=== PATIENT | female | born 1940 | race Caucasian/White ===

== ENCOUNTER 2021-07-10 11:23 | Day surgery (SDC) | payer MEDICARE, OTHER ==
[~2021-07-10 11:23] MED LIST: Cefuroxime 10 MG/ML SYRINGE EYELF SCH; Lidocaine 1% PF 2 ML SDV INJECT SCH; Pilocarpine 4% Ophth Soln 15 ML Bot EYELF SCH
[2021-07-10] MEDS: Polymyxin B/Trimethoprim 10 ML Bottle EYELF SCH ×3 (11:35→13:08)
[2021-07-10] MEDS: Brimonidine 0.2% Ophth Soln 5 ML Bottle EYELF SCH ×3 (11:40→13:08)
[2021-07-10] MEDS: Phenylephrine 2.5% Ophth Soln 2 ML Bot EYELF SCH ×5 (11:50→12:50)
[2021-07-10] MEDS: Tropicamide 1% Ophth Soln 15 ML Bottle EYELF SCH ×4 (11:55→12:35)
[2021-07-10] MEDS: Tetracaine HCl/PF 0.5% 4 ML Bottle EYEBOTH SCH ×3 (12:40→12:58)
--- NOTE | 2021-07-10 12:50 | PCM.PREANE ---
Preanesthetic Assessment - Anesthesia/Transfusion/Family Hx Anesthesia History: Prior Anesthesia Without Reaction Family History of Anesthesia Reaction: No Transfusion History: Prior Transfusion Without Reaction - Review of Systems General: No Symptoms, Other (history of breast ca and lymphoma, last chemo tx was 5 years ago) Pulmonary: No Symptoms Cardiovascular: Other (HTN, no meds) Gastrointestinal: No Symptoms Neurological: No Symptoms Other: Reports: Thyroid Problems (on replacement) - Physical Assessment NPO Status Date: 07/09/21 NPO Status Time: 20:00 Weight: 86.183 kg Mental Status: Alert & Oriented x3 Airway Class: Mallampati = 2 Dentition: Reports: Dentures (upper and lower) Thyro-Mental Finger Breadths: 3 Mouth Opening Finger Breadths: 3 ROM/Head Extension: Full Lungs: Clear to Auscultation, Normal Respiratory Effort Cardiovascular: Regular Rate, Regular Rhythm - Allergies Allergies/Adverse Reactions: Allergies Allergy/AdvReac Type Severity Reaction Status Date / Time morphine Allergy Other Verified 07/09/21 13:36 - Blood Blood Available: No Product(s) Available: None - Acknowledgements Anesthesia Type Planned: MAC Pt an Appropriate Candidate for the Planned Anesthesia: Yes Alternatives and Risks of Anesthesia Discussed w Pt/Guardian: Yes Pt/Guardian Understands and Agrees with Anesthesia Plan: Yes PreAnesthesia Questionnaire - HOME MEDS Home Medications: Home Meds Levothyroxine 25 mcg PO DAILY 07/09/21 [History] - CURRENT (IN HOUSE) MEDS Current Meds: Current Medications Brimonidine Tartrate (Brimonidine 0.2% Ophth Soln 5 Ml Bottle) 0 ml EYELF ASDIRECTED SHAN Stop: 07/10/21 18:00 Last Admin: 07/10/21 12:23 Dose: 1 drop Documented by: Cefuroxime Sodium (Cefuroxime 10 Mg/Ml Syringe) 0 mg EYELF ASDIRECTED SHAN Stop: 07/10/21 18:00 Lidocaine HCl (Lidocaine 1% Pf 2 Ml Sdv) 0 ml INJECT ASDIRECTED SHAN Stop: 07/10/21 18:00 Phenylephrine HCl (Phenylephrine 2.5% Ophth Soln 2 Ml Bot) 0 ml EYELF ASDIRECTED SHAN Stop: 07/10/21 18:00 Last Admin: 07/10/21 12:31 Dose: 1 drop Documented by: Pilocarpine HCl (Pilocarpine 4% Ophth Soln 15 Ml Bot) 0 ml EYELF ASDIRECTED SHAN Stop: 07/10/21 18:00 Polymyxin/Trimethoprim Sulfate (Polymyxin B/Trimethoprim 10 Ml Bottle) 0 ml EYELF ASDIRECTED SHAN Stop: 07/10/21 18:00 Last Admin: 07/10/21 12:16 Dose: 1 drop Documented by: Tetracaine HCl (Tetracaine Hcl/Pf 0.5% 4 Ml Bottle) 0 ml EYEBOTH ASDIRECTED SHAN Stop: 07/10/21 18:00 Last Admin: 07/10/21 12:40 Dose: 1 drop Documented by: Tropicamide (Tropicamide 1% Ophth Soln 15 Ml Bottle) 0 ml EYELF ASDIRECTED SHAN Stop: 07/10/21 18:00 Last Admin: 07/10/21 12:35 Dose: 1 drop Documented by:
--- NOTE | 2021-07-10 13:11 | PCM48HPAN ---
Post Anesthesia Note - EVALUATION WITHIN 48HRS OF ANESTHETIC Vital Signs in Normal Range: Yes Patient Participated in Evaluation: Yes Respiratory Function Stable: Yes Airway Patent: Yes Cardiovascular Function Stable: Yes Hydration Status Stable: Yes Pain Control Satisfactory: Yes Nausea and Vomiting Control Satisfactory: Yes Mental Status Recovered: Yes Vital Signs: 1133/77 95% 61 15
== END 2021-07-10 13:20 | disposition home or self-care (01) ==
LOC: JD.SDS 11:23
PROVIDERS: ATTEND Ophthalmology
DX: H25.813 Combined forms of age-related cataract, bilateral (principal); H16.103 Unspecified superficial keratitis, bilateral; H16.223 Keratoconjunctivitis sicca, not specified as Sjogren's, bilateral; H02.834 Dermatochalasis of left upper eyelid; H02.831 Dermatochalasis of right upper eyelid; I10 Essential (primary) hypertension; E03.9 Hypothyroidism, unspecified; Z85.3 Personal history of malignant neoplasm of breast; Z87.891 Personal history of nicotine dependence
CPT/HCPCS: 66984; J0697; C1780

== ENCOUNTER 2021-08-05 09:58 | Day surgery (SDC) | payer MEDICARE, OTHER ==
[~2021-08-05 09:58] MED LIST changes: -Cefuroxime 10 MG/ML SYRINGE EYELF SCH; +Cefuroxime 10 MG/ML SYRINGE EYERT SCH; -Pilocarpine 4% Ophth Soln 15 ML Bot EYELF SCH; +Pilocarpine 4% Ophth Soln 15 ML Bot EYERT SCH
--- NOTE | 2021-08-05 11:08 | PCM.PREANE ---
Preanesthetic Assessment - Procedure Proposed Procedure: cataract extraction with iol right eye - Anesthesia/Transfusion/Family Hx Anesthesia History: Prior Anesthesia Without Reaction Family History of Anesthesia Reaction: No Transfusion History: Prior Transfusion Without Reaction - Review of Systems General: No Symptoms Pulmonary: No Symptoms, Cough (had a cold lately) Cardiovascular: No Symptoms Gastrointestinal: No Symptoms Neurological: No Symptoms Other: Reports: Thyroid Problems - Physical Assessment NPO Status Date: 08/04/21 NPO Status Time: 21:00 Vital Signs: Last Vital Signs Temp 98.1 F 08/05/21 10:30 Pulse 59 L 08/05/21 10:30 Resp 16 08/05/21 10:30 BP 129/74 08/05/21 10:30 Pulse Ox 97 08/05/21 10:30 Height: 5 ft 5 in Weight: 86.183 kg ASA Class: 2 Mental Status: Alert & Oriented x3 Airway Class: Mallampati = 3 Dentition: Reports: Dentures (top and bottom) Thyro-Mental Finger Breadths: 3 Mouth Opening Finger Breadths: 3 ROM/Head Extension: Full Lungs: Clear to Auscultation, Normal Respiratory Effort Cardiovascular: Regular Rate, Regular Rhythm - Allergies Allergies/Adverse Reactions: Allergies Allergy/AdvReac Type Severity Reaction Status Date / Time morphine Allergy Other Verified 08/05/21 10:54 - Blood Blood Available: No - Acknowledgements Anesthesia Type Planned: MAC Pt an Appropriate Candidate for the Planned Anesthesia: Yes Alternatives and Risks of Anesthesia Discussed w Pt/Guardian: Yes Pt/Guardian Understands and Agrees with Anesthesia Plan: Yes PreAnesthesia Questionnaire Cardiovascular History: Reports: Hypertension Respiratory History: Reports: Other (See Below) (cold lately) Endocrine/Metabolic History: Reports: Hypoparathyroidism, Obesity/BMI 30+ Oncologic (Cancer) History: Reports: Breast, Other (See Below) (lymphoma) - Past Surgical History Female Surgical History: Reports: Mastectomy (double) Musculoskeletal Surgical History: Reports: Knee Replacement (bilateral), Shoulder Surgery - SUBSTANCE USE Tobacco Use Status *Q: Former Tobacco User Second Hand Smoke Exposure: No Recreational Drug Use History: No - HOME MEDS Home Medications: Home Meds Levothyroxine 25 mcg PO DAILY 07/09/21 [History] - CURRENT (IN HOUSE) MEDS Current Meds: Current Medications Brimonidine Tartrate (Brimonidine 0.2% Ophth Soln 5 Ml Bottle) 0 ml EYERT ASDIRECTED SHAN Stop: 08/05/21 18:00 Cefuroxime Sodium (Cefuroxime 10 Mg/Ml Syringe) 0 mg EYERT ASDIRECTED SHAN Stop: 08/05/21 18:00 Lidocaine HCl (Lidocaine 1% Pf 2 Ml Sdv) 0 ml INJECT ASDIRECTED SHAN Stop: 08/05/21 18:00 Phenylephrine HCl (Phenylephrine 2.5% Ophth Soln 2 Ml Bot) 0 ml EYERT ASDIRECTED SHAN Stop: 08/05/21 18:00 Pilocarpine HCl (Pilocarpine 4% Ophth Soln 15 Ml Bot) 0 ml EYERT ASDIRECTED SHAN Stop: 08/05/21 18:00 Polymyxin/Trimethoprim Sulfate (Polymyxin B/Trimethoprim 10 Ml Bottle) 0 ml EYERT ASDIRECTED SHAN Stop: 08/05/21 18:00 Tetracaine HCl (Tetracaine Hcl/Pf 0.5% 4 Ml Bottle) 0 ml EYEBOTH ASDIRECTED SHAN Stop: 08/05/21 18:00 Tropicamide (Tropicamide 1% Ophth Soln 15 Ml Bottle) 0 ml EYERT ASDIRECTED SHAN Stop: 08/05/21 18:00
[2021-08-05] MEDS: Polymyxin B/Trimethoprim 10 ML Bottle EYERT SCH ×3 (11:11→12:37)
[2021-08-05] MEDS: Brimonidine 0.2% Ophth Soln 5 ML Bottle EYERT SCH ×3 (11:14→12:37)
[2021-08-05] MEDS: Phenylephrine 2.5% Ophth Soln 2 ML Bot EYERT SCH ×6 (11:17→12:25)
[2021-08-05] MEDS: Tropicamide 1% Ophth Soln 15 ML Bottle EYERT SCH ×4 (11:22→11:55)
[2021-08-05] MEDS: Tetracaine HCl/PF 0.5% 4 ML Bottle EYEBOTH SCH ×4 (12:01→12:28)
--- NOTE | 2021-08-05 12:39 | PCM48HPAN ---
Post Anesthesia Note - EVALUATION WITHIN 48HRS OF ANESTHETIC Vital Signs in Normal Range: Yes Patient Participated in Evaluation: Yes Respiratory Function Stable: Yes Airway Patent: Yes Cardiovascular Function Stable: Yes Hydration Status Stable: Yes Pain Control Satisfactory: Yes Nausea and Vomiting Control Satisfactory: Yes Mental Status Recovered: Yes Vital Signs: Last Vital Signs Temp 36.7 C 08/05/21 10:30 Pulse 59 L 08/05/21 10:30 Resp 16 08/05/21 10:30 BP 129/74 08/05/21 10:30 Pulse Ox 97 08/05/21 10:30
== END 2021-08-05 12:44 | disposition home or self-care (01) ==
LOC: JD.SDS 09:58
PROVIDERS: ATTEND Ophthalmology
DX: H25.811 Combined forms of age-related cataract, right eye (principal); H02.831 Dermatochalasis of right upper eyelid; H02.834 Dermatochalasis of left upper eyelid; H16.103 Unspecified superficial keratitis, bilateral; H16.223 Keratoconjunctivitis sicca, not specified as Sjogren's, bilateral; I10 Essential (primary) hypertension; E66.9 Obesity, unspecified; Z98.890 Other specified postprocedural states; Z87.891 Personal history of nicotine dependence; Z79.899 Other long term (current) drug therapy; Z96.1 Presence of intraocular lens; Z88.5 Allergy status to narcotic agent; Z68.31 Body mass index [BMI] 31.0-31.9, adult
CPT/HCPCS: 66984; J0697; V2632

== ENCOUNTER 2021-08-25 16:08 | Inpatient (IN) | payer MEDICARE, OTHER ==
[2021-08-25] MEDS ORDERED: Sodium Chloride 0.9% 10 ML Syringe FLUSH PRN (16:50)
--- NOTE | 2021-08-25 16:58 | EDM.PDOC ---
ED HPI GENERAL MEDICAL PROBLEM - General Chief Complaint: Respiratory Problem Stated Complaint: WEAK Time Seen by Provider: 08/25/21 16:23 Source of Information: Reports: Patient, Family (son), RN Notes Reviewed History Limitations: Reports: No Limitations - History of Present Illness INITIAL COMMENTS - FREE TEXT/NARRATIVE: Patient is an 81-year-old female presents to the ER with her son for the evaluation of her weakness. Patient states that she has felt generally unwell for a few weeks but this did seem to worsen over the weekend. States she has no appetite, or is feeling very lethargic, so much that she is not been able to get up and make her self or prepare food. Patient has not had any fevers or chills, but has had some increasing cough and shortness of breath. Patient was seen at the walk-in clinic a few days ago and placed on a Z-Gavin. Patient is unvaccinated for COVID-19. Patient states that she has issues with her blood pressure, but notes that she is otherwise fairly healthy. Primary care provider is Dr. Arreguin. - Related Data Allergies Allergy/AdvReac Type Severity Reaction Status Date / Time morphine Allergy Other Verified 08/25/21 16:29 Home Meds: Home Meds Citalopram [Citalopram HBr] 20 mg PO DAILY 08/25/21 [History] Levothyroxine [Synthroid] 100 mcg PO DAILY 08/25/21 [History] Losartan [Cozaar] 50 mg PO DAILY 08/25/21 [History] Past Medical History Cardiovascular History: Reports: Hypertension Endocrine/Metabolic History: Reports: Hypoparathyroidism, Obesity/BMI 30+ Oncologic (Cancer) History: Reports: Breast, Lymphoma - Past Surgical History Female Surgical History: Reports: Mastectomy Musculoskeletal Surgical History: Reports: Knee Replacement, Shoulder Surgery Social & Family History - Tobacco Use Tobacco Use Status *Q: Former Tobacco User Used Tobacco, but Quit: Yes Month/Year Tobacco Last Used: 1969 - Recreational Drug Use Recreational Drug Use: No ED ROS GENERAL - Review of Systems Review Of Systems: Comprehensive ROS is negative, except as noted in HPI. ED EXAM, GENERAL - Physical Exam Exam: See Below Exam Limited By: No Limitations General Appearance: Alert, WD/WN, No Apparent Distress Respiratory/Chest: No Respiratory Distress, Lungs Clear, Normal Breath Sounds, No Accessory Muscle Use, Crackles Cardiovascular: Normal Peripheral Pulses, Regular Rate, Rhythm, No Edema Peripheral Pulses: 2+: Radial (L), Radial (R) Extremities: Normal Inspection, Normal Capillary Refill Neurological: Alert, Oriented, Normal Cognition, No Motor/Sensory Deficits Psychiatric: Normal Affect, Normal Mood Skin Exam: Warm, Dry, Intact, Normal Color, No Rash Course - Vital Signs Last Recorded V/S: Last Vital Signs Temp 98.3 F 08/26/21 07:30 Pulse 88 08/26/21 07:30 Resp 20 08/26/21 07:30 BP 109/46 L 08/26/21 07:30 Pulse Ox 91 L 08/26/21 07:30 - Orders/Labs/Meds Orders: Active Orders 24 hr Category Date Time Status Oxygen Therapy, ED [RC] ASDIRECTED Care 08/25/21 16:58 Active Peripheral IV Care [RC] . DIRECTED Care 08/25/21 16:50 Active Sodium Chloride 0.9% [Saline Flush] Med 08/25/21 16:50 Active 10 ml FLUSH ASDIRECTED PRN Peripheral IV Insertion Adult [OM.PC] Routine Oth 08/25/21 16:50 Ordered Medication Orders Sodium Chloride (Sodium Chloride 0.9% 10 Ml Syringe) 10 ml FLUSH ASDIRECTED PRN PRN Reason: Keep Vein Open Last Admin: 08/25/21 17:07 Dose: 10 ml Documented by: WEST Labs: Laboratory Tests 08/25/21 08/25/21 08/25/21 Range/Units 16:30 18:11 18:11 WBC 7.12 (3.98-10.04) K/mm3 RBC 3.68 L (3.98-5.22) M/mm3 Hgb 11.7 (11.2-15.7) gm/dl Hct 36.5 (34.1-44.9) % MCV 99.2 H (79.4-94.8) fl MCH 31.8 (25.6-32.2) pg MCHC 32.1 L (32.2-35.5) g/dl RDW Std Deviation 51.1 H (36.4-46.3) fL Plt Count 152 L (182-369) K/mm3 MPV 9.8 (9.4-12.3) fl Neut % (Auto) 72.2 H (34.0-71.1) % Lymph % (Auto) 18.5 L (19.3-51.7) % [place] % (Auto) 8.7 (4.7-12.5) % Eos % (Auto) 0.1 L (0.7-5.8) Baso % (Auto) 0.1 (0.1-1.2) % Neut # (Auto) 5.13 (1.56-6.13) K/mm3 Lymph # (Auto) 1.32 (1.18-3.74) K/mm3 [place] # (Auto) 0.62 H (0.24-0.36) K/mm3 Eos # (Auto) 0.01 L (0.04-0.36) K/mm3 Baso # (Auto) 0.01 (0.01-0.08) K/mm3 Manual Slide Review Abnormal smear Sodium (136-145) mEq/L Potassium (3.5-5.1) mEq/L Chloride (98-107) mEq/L Carbon Dioxide (21-32) mEq/L Anion Gap (5-15) BUN (7-18) mg/dL Creatinine (0.55-1.02) mg/dL Est Cr Clr Drug Dosing Estimated GFR (MDRD) (>60) mL/min BUN/Creatinine Ratio (14-18) Glucose (70-99) mg/dL Calcium (8.5-10.1) mg/dL Magnesium (1.8-2.4) mg/dL Total Bilirubin (0.2-1.0) mg/dL AST (15-37) U/L ALT (14-59) U/L Alkaline Phosphatase (46-116) U/L C-Reactive Protein 8.7 H* (<1.0) mg/dL Total Protein (6.4-8.2) g/dl Albumin (3.4-5.0) g/dl Globulin gm/dL Albumin/Globulin Ratio (1-2) SARS-CoV-2 RNA (JEAN) Positive H (NEGATIVE) 08/25/21 Range/Units 18:11 WBC (3.98-10.04) K/mm3 RBC (3.98-5.22) M/mm3 Hgb (11.2-15.7) gm/dl Hct (34.1-44.9) % MCV (79.4-94.8) fl MCH (25.6-32.2) pg MCHC (32.2-35.5) g/dl RDW Std Deviation (36.4-46.3) fL Plt Count (182-369) K/mm3 MPV (9.4-12.3) fl Neut % (Auto) (34.0-71.1) % Lymph % (Auto) (19.3-51.7) % [place] % (Auto) (4.7-12.5) % Eos % (Auto) (0.7-5.8) Baso % (Auto) (0.1-1.2) % Neut # (Auto) (1.56-6.13) K/mm3 Lymph # (Auto) (1.18-3.74) K/mm3 [place] # (Auto) (0.24-0.36) K/mm3 Eos # (Auto) (0.04-0.36) K/mm3 Baso # (Auto) (0.01-0.08) K/mm3 Manual Slide Review Sodium 137 (136-145) mEq/L Potassium 4.0 (3.5-5.1) mEq/L Chloride 104 (98-107) mEq/L Carbon Dioxide 21 (21-32) mEq/L Anion Gap 16.0 H (5-15) BUN 26 H (7-18) mg/dL Creatinine 1.5 H (0.55-1.02) mg/dL Est Cr Clr Drug Dosing TNP Estimated GFR (MDRD) 33 (>60) mL/min BUN/Creatinine Ratio 17.3 (14-18) Glucose 113 H (70-99) mg/dL Calcium 7.8 L (8.5-10.1) mg/dL Magnesium 2.1 (1.8-2.4) mg/dL Total Bilirubin 0.4 (0.2-1.0) mg/dL AST 57 H (15-37) U/L ALT 35 (14-59) U/L Alkaline Phosphatase 81 (46-116) U/L C-Reactive Protein (<1.0) mg/dL Total Protein 7.3 (6.4-8.2) g/dl Albumin 3.0 L (3.4-5.0) g/dl Globulin 4.3 gm/dL Albumin/Globulin Ratio 0.7 L (1-2) SARS-CoV-2 RNA (JEAN) (NEGATIVE) Meds: Medications Generic Name Dose Route Start Last Admin Trade Name Gabrielq PRN Reason Stop Dose Admin Sodium Chloride 10 ml 08/25/21 16:50 08/25/21 17:07 Sodium Chloride 0.9% 10 Ml Syringe FLUSH 10 ml ASDIRECTED PRN Administration Keep Vein Open Discontinued Medications Generic Name Dose Route Start Last Admin Trade Name Gabrielq PRN Reason Stop Dose Admin Dexamethasone 6 mg 08/25/21 18:52 08/25/21 19:30 Dexamethasone 10 Mg/Ml Sdv IVPUSH 08/25/21 18:53 6 mg ONETIME ONE Administration Remdesivir 200 mg/ Sodium 250 mls @ 250 mls/hr 08/25/21 18:52 08/25/21 19:30 Chloride IV 08/25/21 18:53 250 mls/hr ONETIME ONE Administration Sodium Chloride 1,000 mls @ 75 mls/hr 08/25/21 18:55 08/25/21 19:30 Normal Saline IV 08/26/21 08:14 75 mls/hr ONETIME ONE Administration - Re-Assessments/Exams Free Text/Narrative Re-Assessment/Exam: 08/25/21 16:57 Patient presents to the ER for her generalized weakness. Covid swab was obtained at time of triage. We will go ahead and get a chest x-ray and basic labs. O2 saturations were in the low 80s (81-82% on room air), and patient was placed on 3 L via nasal cannula and she did respond well and has been having oxygen sats at around 92 to 93%. 08/25/21 18:43 Patient was Covid positive chest x-ray also showed moderate to severe Covid pneumonia. The patient's family member or loved one in the room has been requesting a second Covid screen to be done, in order to confirm the first Covid screen I did go over this with him multiple times stating that we have radiographic evidence that we have a positive Covid diagnosis along with a positive Covid screen, and her hypoxia does likely mean that she is in fact positive for COVID-19. This again did not seem to get through to the patient's loved one. The patient denied a second Covid screen as she did not want to pay for a second Covid screen. The patient's loved one also did not want the patient transferred anywhere else for her COVID-[address] Benson did come by at the end of his shift and stated that he is going to have 3 or so discharges tomorrow, and that he would gladly accept the patient tomorrow if we could keep her in the ER overnight. I did order remdesivir and dexamethasone to be given to the patient. The patient's family member was very distraught at having to leave her here by herself so I did tell him that once she was transferred to the floor that she would in no way be able to have visitors as that is our visitor policy. He verbalized understanding of that, but stated that he wanted to stay with her in the ER as long as possible. I did tell him that he should not be leaving the ER room multiple times and coming back to try to limit exposure to others. He did leave once to get her cell phone and slipcover cutter, so that she had a way to communicate with them. He again did not really understand / was being very difficult (not understanding) with what I was trying to tell him about the visitor policy while being in the ER. Departure - Departure Time of Disposition: 19:19 Disposition: Admitted As Inpatient 67 Condition: Good Clinical Impression: Pneumonia due to COVID-19 virus, Hypoxia - Discharge Information Referrals: Isrrael Arreguin MD [Primary Care Provider] - Forms: ED Department Discharge Sepsis Event Note (ED) - Evaluation Sepsis Screening Result: No Definite Risk - Focused Exam Vital Signs: Vital Signs Temp Pulse Resp BP Pulse Ox 08/26/21 07:30 98.3 F 88 20 109/46 L 91 L 08/26/21 02:05 60 20 113/57 L 90 L 08/26/21 00:00 60 16 96 - My Orders Last 24 Hours: My Active Orders 08/25/21 16:50 Peripheral IV Care [RC] . DIRECTED Sodium Chloride 0.9% [Saline Flush] 10 ml FLUSH ASDIRECTED PRN Peripheral IV Insertion Adult [OM.PC] Routine 08/25/21 16:58 Oxygen Therapy, ED [RC] ASDIRECTED - Assessment/Plan Last 24 Hours: My Active Orders 08/25/21 16:50 Peripheral IV Care [RC] . DIRECTED Sodium Chloride 0.9% [Saline Flush] 10 ml FLUSH ASDIRECTED PRN Peripheral IV Insertion Adult [OM.PC] Routine 08/25/21 16:58 Oxygen Therapy, ED [RC] ASDIRECTED
--- NOTE | 2021-08-25 18:02 | CR ---
Chest: Frontal view of the chest was obtained. Comparison: No prior chest imaging is available. Scattered parenchymal change is seen peripherally throughout both lungs. Heart size is normal. Tortuous thoracic aorta is seen. Previous resection of the distal left clavicle is noted. Mild degenerative change is seen within the spine. Impression: 1. Findings are suspicious for moderate to severe changes of COVID pneumonia. Please correlate. 2. Other incidental findings. Diagnostic code #3
[2021-08-25] MEDS ORDERED: REMDESIVIR 200 MG in Sodium Chloride 0.9% 250 ML IV ONE (18:52)
[2021-08-25] MEDS ORDERED: Dexamethasone 10 MG/ML SDV IVPUSH ONE (18:52)
[2021-08-25] MEDS ORDERED: Sodium Chloride 0.9% 1,000 ML IV ONE (18:55)
[2021-08-26] MEDS ORDERED: Acetaminophen 325 MG Tab PO PRN (13:45)
[2021-08-26] MEDS ORDERED: Albuterol 6.7 GM Inhaler INH PRN (13:45)
--- NOTE | 2021-08-26 13:54 | PCM.HP.2 ---
H&P History of Present Illness - General Date of Service: 08/26/21 Admit Problem/Dx: Admission Diagnosis/Problem Admission Diagnosis/Problem Hypoxia Source of Information: Patient, Old Records, Provider, RN, RN Notes Reviewed History Limitations: Reports: No Limitations - History of Present Illness Initial Comments - Free Text/Narative: This is a 81-year-old female presents to ED on 08/25/2021 accompanied by her son for weakness. Patient reports she has been feeling poorly for a few weeks but symptoms have worsened over the weekend. States no appetite and has been feel ing very lethargic. Has been unable to get up and make herself food. Denies fevers or chills but reports increased cough and shortness of breath. She reportedly seen at the walk-in clinic a few days earlier and given a Z-Gavin. She is not vaccinated for COVID-19. In the ED temp is 98.3. Pulse 88. Respirations 20. Blood pressure is low at 109/46. Pulse ox is 91% on room air. Labs are obtained showing a WBC of 7.12. Hemoglobin 11.7. Platelet 152,000. Neutrophils are elevated 72.2%. CRP is 8.7. Sodium is 137. Potassium 4.0. Chloride 104. Carbon dioxide 21. Anion gap 16.0. BUN is 26. Creatinine 1.5. GFR is 33. Glucose is 113. Calcium 7.8. Magnesium 2.1. Total bilirubin 0.4. AST is 57, ALT 35, alkaline phosphatase is 81. Protein is 7.3. Albumin is 3.0. SARS-CoV-2 RNA is positive. Chest x-ray is obtained showing findings suspicious for moderate to severe changes of COVID-19 pneumonia and other incidental findings. She is started on 75 mils of NS, given 6 mg IV push dexamethasone and 200 mg remdesivir. She is held overnight in the ED and subsequent mated to the medical floor on telemetry for management of her hypoxia due to COVID-19 pneumonia. She carries a history of Hypothyroidism, hypoparathyroidism, hypertension, obesity with a BMI of 31, breast cancer and subsequent mastectomy, history of lymphoma, and a smoker who quit many years ago. Her PCP is Dr. Arreguin. - Related Data Allergies/Adverse Reactions: Allergies Allergy/AdvReac Type Severity Reaction Status Date / Time morphine Allergy Other Verified 08/25/21 16:29 Home Medications: Home Meds Citalopram [Citalopram HBr] 20 mg PO DAILY 08/25/21 [History] Levothyroxine [Synthroid] 100 mcg PO DAILY 08/25/21 [History] Losartan [Cozaar] 50 mg PO DAILY 08/25/21 [History] Past Medical History Cardiovascular History: Reports: Hypertension Respiratory History: Reports: Other (See Below) Other Respiratory History: sepsis Endocrine/Metabolic History: Reports: Hypoparathyroidism, Obesity/BMI 30+ Oncologic (Cancer) History: Reports: Breast, Lymphoma - Past Surgical History Female Surgical History: Reports: Mastectomy Musculoskeletal Surgical History: Reports: Knee Replacement, Shoulder Surgery Social & Family History - Tobacco Use Tobacco Use Status *Q: Former Tobacco User Used Tobacco, but Quit: Yes Month/Year Tobacco Last Used: 1969 - Recreational Drug Use Recreational Drug Use: No H&P Review of Systems - Review of Systems: Review Of Systems: See Below General: Reports: Malaise, Weakness, Fatigue, Decreased Appetite. Denies: Fever, Chills HEENT: Reports: No Symptoms. Denies: Headaches, Sore Throat Pulmonary: Reports: Shortness of Breath, Cough, Sputum. Denies: Wheezing, Pleuritic Chest Pain Cardiovascular: Reports: Dyspnea on Exertion. Denies: Chest Pain, Palpitations, Edema Gastrointestinal: Reports: No Symptoms. Denies: Abdominal Pain, Constipation, Diarrhea, Nausea, Vomiting Genitourinary: Reports: No Symptoms. Denies: Pain Musculoskeletal: Reports: Muscle Pain (generalized ) Skin: Reports: No Symptoms Psychiatric: Reports: No Symptoms. Denies: Confusion Neurological: Reports: Difficulty Walking, Weakness. Denies: Confusion, Dizziness, Headache, Numbness, Pre-Existing Deficit, Seizure, Syncope, Tingling, Tremors, Change in Speech, Gait Disturbance Hematologic/Lymphatic: Reports: No Symptoms Immunologic: Reports: No Symptoms Exam - Exam Exam: See Below - Vital Signs Vital Signs: Last Vital Signs Temp 98.3 F 08/26/21 07:30 Pulse 88 08/26/21 07:30 Resp 20 08/26/21 07:30 BP 109/46 L 08/26/21 07:30 Pulse Ox 91 L 08/26/21 07:30 Weight: 186 lb - Exam Quality Assessment: Supplemental Oxygen (4L), DVT Prophylaxis General: Alert, Oriented, Cooperative, Mild Distress (Looks ill) HEENT: Conjunctiva Clear, EACs Clear, Posterior Pharynx Clear. No: Mucosa Moist & [place] (Dry) Neck: Supple, Trachea Midline Lungs: Normal Respiratory Effort, Decreased Breath Sounds, Crackles, Rhonchi Cardiovascular: Regular Rate, Regular Rhythm GI/Abdominal Exam: Normal Bowel Sounds, Soft, Non-Tender, No Distention (Female) Exam: Deferred Rectal (Female) Exam: Deferred Back Exam: Normal Inspection, Full Range of Motion Extremities: Normal Inspection, Normal Range of Motion, Non-Tender, No Pedal Edema, Normal Capillary Refill Peripheral Pulses: 2+: Radial (L), Radial (R), Dorsalis Pedis (L), Dorsalis Pedis (R) Skin: Warm, Dry, Intact Neurological: Cranial Nerves Intact (Grossly ) Neuro Extensive - Mental Status: Alert, Oriented x3 - Patient Data Lab Results Last 24 hrs: Laboratory Results - last 24 hr 08/25/21 08/25/21 08/25/21 Range/Units 16:30 18:11 18:11 WBC 7.12 (3.98-10.04) K/mm3 RBC 3.68 L (3.98-5.22) M/mm3 Hgb 11.7 (11.2-15.7) gm/dl Hct 36.5 (34.1-44.9) % MCV 99.2 H (79.4-94.8) fl MCH 31.8 (25.6-32.2) pg MCHC 32.1 L (32.2-35.5) g/dl RDW Std Deviation 51.1 H (36.4-46.3) fL Plt Count 152 L (182-369) K/mm3 MPV 9.8 (9.4-12.3) fl Neut % (Auto) 72.2 H (34.0-71.1) % Lymph % (Auto) 18.5 L (19.3-51.7) % [place] % (Auto) 8.7 (4.7-12.5) % Eos % (Auto) 0.1 L (0.7-5.8) Baso % (Auto) 0.1 (0.1-1.2) % Neut # (Auto) 5.13 (1.56-6.13) K/mm3 Lymph # (Auto) 1.32 (1.18-3.74) K/mm3 [place] # (Auto) 0.62 H (0.24-0.36) K/mm3 Eos # (Auto) 0.01 L (0.04-0.36) K/mm3 Baso # (Auto) 0.01 (0.01-0.08) K/mm3 Manual Slide Review Abnormal smear Sodium (136-145) mEq/L Potassium (3.5-5.1) mEq/L Chloride (98-107) mEq/L Carbon Dioxide (21-32) mEq/L Anion Gap (5-15) BUN (7-18) mg/dL Creatinine (0.55-1.02) mg/dL Est Cr Clr Drug Dosing Estimated GFR (MDRD) (>60) mL/min BUN/Creatinine Ratio (14-18) Glucose (70-99) mg/dL Calcium (8.5-10.1) mg/dL Magnesium (1.8-2.4) mg/dL Total Bilirubin (0.2-1.0) mg/dL AST (15-37) U/L ALT (14-59) U/L Alkaline Phosphatase (46-116) U/L C-Reactive Protein 8.7 H* (<1.0) mg/dL Total Protein (6.4-8.2) g/dl Albumin (3.4-5.0) g/dl Globulin gm/dL Albumin/Globulin Ratio (1-2) SARS-CoV-2 RNA (EJAN) Positive H (NEGATIVE) 08/25/21 Range/Units 18:11 WBC (3.98-10.04) K/mm3 RBC (3.98-5.22) M/mm3 Hgb (11.2-15.7) gm/dl Hct (34.1-44.9) % MCV (79.4-94.8) fl MCH (25.6-32.2) pg MCHC (32.2-35.5) g/dl RDW Std Deviation (36.4-46.3) fL Plt Count (182-369) K/mm3 MPV (9.4-12.3) fl Neut % (Auto) (34.0-71.1) % Lymph % (Auto) (19.3-51.7) % [place] % (Auto) (4.7-12.5) % Eos % (Auto) (0.7-5.8) Baso % (Auto) (0.1-1.2) % Neut # (Auto) (1.56-6.13) K/mm3 Lymph # (Auto) (1.18-3.74) K/mm3 [place] # (Auto) (0.24-0.36) K/mm3 Eos # (Auto) (0.04-0.36) K/mm3 Baso # (Auto) (0.01-0.08) K/mm3 Manual Slide Review Sodium 137 (136-145) mEq/L Potassium 4.0 (3.5-5.1) mEq/L Chloride 104 (98-107) mEq/L Carbon Dioxide 21 (21-32) mEq/L Anion Gap 16.0 H (5-15) BUN 26 H (7-18) mg/dL Creatinine 1.5 H (0.55-1.02) mg/dL Est Cr Clr Drug Dosing TNP Estimated GFR (MDRD) 33 (>60) mL/min BUN/Creatinine Ratio 17.3 (14-18) Glucose 113 H (70-99) mg/dL Calcium 7.8 L (8.5-10.1) mg/dL Magnesium 2.1 (1.8-2.4) mg/dL Total Bilirubin 0.4 (0.2-1.0) mg/dL AST 57 H (15-37) U/L ALT 35 (14-59) U/L Alkaline Phosphatase 81 (46-116) U/L C-Reactive Protein (<1.0) mg/dL Total Protein 7.3 (6.4-8.2) g/dl Albumin 3.0 L (3.4-5.0) g/dl Globulin 4.3 gm/dL Albumin/Globulin Ratio 0.7 L (1-2) SARS-CoV-2 RNA (JEAN) (NEGATIVE) Result Diagrams: 08/25/21 18:11 08/26/21 14:30 Lyle Results Last 24 hrs: Microbiology 08/25/21 16:30 Influenza Type A Antigen Screen - Final Nasopharyngeal Swab NEGATIVE INFLUENZA A VIRUS AG REFERENCE RANGE: NEGATIVE Influenza Type B Antigen Screen - Final NEGATIVE INFLUENZA B VIRUS AG REFERENCE RANGE: NEGATIVE Sepsis Event Note - Evaluation Sepsis Screening Result: No Definite Risk - Focused Exam Vital Signs: Vital Signs Temp Pulse Resp BP Pulse Ox 08/26/21 07:30 98.3 F 88 20 109/46 L 91 L 08/26/21 02:05 60 20 113/57 L 90 L - Problem List (1) Pneumonia due to COVID-19 virus SNOMED Code(s): 249770740948513276 ICD Code: U07.1 - COVID-19; J12.82 - PNEUMONIA DUE TO CORONAVIRUS DISEASE 2019 Status: Acute Priority: High Current Visit: Yes (2) Hypoxia SNOMED Code(s): 036305325 ICD Code: R09.02 - HYPOXEMIA Status: Acute Priority: High Current Visit: Yes (3) Hypertension SNOMED Code(s): 38882158 ICD Code: I10 - ESSENTIAL (PRIMARY) HYPERTENSION Status: Chronic Priority: Medium Current Visit: No Qualifiers: Hypertension type: unspecified Qualified Code(s): I10 - Essential (primary) hypertension (4) Hypoparathyroidism SNOMED Code(s): 60904143 ICD Code: E20.9 - HYPOPARATHYROIDISM, UNSPECIFIED Status: Chronic Priority: Low Current Visit: No Qualifiers: Hypoparathyroidism type: unspecified Qualified Code(s): E20.9 - Hypoparathyroidism, unspecified (5) Obesity SNOMED Code(s): 558217985, 530971954 ICD Code: E66.9 - OBESITY, UNSPECIFIED Status: Chronic Priority: Low Current Visit: No Qualifiers: Obesity type: unspecified obesity type Obesity classification: adult class 1 (BMI 30 - 34.9) Serious obesity comorbidity presence: unspecified whether serious comorbidity present Body mass index: BMI 31.0-31.9 Qualified Code(s): E66.9 - Obesity, unspecified; Z68.31 - Body mass index [BMI] 31.0-31.9, adult (6) History of breast cancer SNOMED Code(s): 120956329 ICD Code: Z85.3 - PERSONAL HISTORY OF MALIGNANT NEOPLASM OF BREAST Status: Chronic Priority: Low Current Visit: No (7) History of lymphoma SNOMED Code(s): 897918855 ICD Code: Z85.79 - PRSNL HX OF MALIG NEOPLM OF LYMPHOID, HEMATPOETC & REL TISS Status: Chronic Priority: Low Current Visit: No (8) S/P mastectomy SNOMED Code(s): 848661571, 81330453, 033208950 ICD Code: Z90.10 - ACQUIRED ABSENCE OF UNSPECIFIED BREAST AND NIPPLE Status: Chronic Priority: Low Current Visit: No Qualifiers: Laterality: unspecified laterality Qualified Code(s): Z90.10 - Acquired absence of unspecified breast and nipple (9) Former smoker SNOMED Code(s): 2231115 ICD Code: Z87.891 - PERSONAL HISTORY OF NICOTINE DEPENDENCE Status: Chronic Priority: Low Current Visit: No (10) Hypothyroid SNOMED Code(s): 62841177 ICD Code: E03.9 - HYPOTHYROIDISM, UNSPECIFIED Status: Chronic Priority: Low Current Visit: No Qualifiers: Hypothyroidism type: unspecified Qualified Code(s): E03.9 - Hypothyroidism, unspecified (11) [place] (acute kidney injury) SNOMED Code(s): 39122060, 68774497 ICD Code: N17.9 - ACUTE KIDNEY FAILURE, UNSPECIFIED Status: Acute Priority: Medium Current Visit: Yes Problem List Initiated/Reviewed/Updated: Yes Orders Last 24hrs: Active Orders 24 hr Category Date Time Status Patient Status [ADT] Routine ADT 08/26/21 13:46 Active Cardiac Monitoring [RC] CONTINUOUS Care 08/26/21 13:46 Active Height and Weight [RC] DAILY Care 08/26/21 13:45 Active Intake and Output [RC] DAILY Care 08/26/21 13:46 Active Nurse Communication: Isolation [RC] ASDIRECTED Care 08/26/21 13:49 Active Oxygen Therapy [RC] ASDIRECTED Care 08/26/21 13:45 Active Oxygen Therapy, ED [RC] ASDIRECTED Care 08/25/21 16:58 Active Peripheral IV Care [RC] . DIRECTED Care 08/25/21 16:50 Active Positioning, Patient [RC] ASDIRECTED Care 08/26/21 13:50 Active Pulse Oximetry [RC] CONTINUOUS Care 08/26/21 13:46 Active RT Aerosol Therapy [RC] ASDIRECTED Care 08/26/21 13:47 Active RT Incentive Spirometry [RC] ASDIRECTED Care 08/26/21 13:45 Active Up With Assistance [RC] ASDIRECTED Care 08/26/21 13:46 Active Vital Signs [RC] Q6H Care 08/26/21 13:45 Active Consult to Case Management/District Resource Officer [CONS] Cons 08/26/21 13:45 Active Routine OT Evaluation and Treatment [CONS] Routine Cons 08/26/21 13:49 Active PT Evaluation and Treatment [CONS] Routine Cons 08/26/21 13:49 Active Respiratory Care Assess and Treatment [CONS] Routine Cons 08/26/21 13:49 Active C-REACTIVE PROTEIN [CHEM] AM Lab 08/27/21 05:11 Ordered C-REACTIVE PROTEIN [CHEM] AM Lab 08/28/21 05:11 Ordered C-REACTIVE PROTEIN [CHEM] AM Lab 08/29/21 05:11 Ordered C-REACTIVE PROTEIN [CHEM] AM Lab 08/30/21 05:11 Ordered CBC WITH AUTO DIFF [HEME] AM Lab 08/27/21 05:11 Ordered CBC WITH AUTO DIFF [HEME] AM Lab 08/28/21 05:11 Ordered CBC WITH AUTO DIFF [HEME] AM Lab 08/29/21 05:11 Ordered CBC WITH AUTO DIFF [HEME] AM Lab 08/30/21 05:11 Ordered COMPREHENSIVE METABOLIC PN,CMP [CHEM] AM Lab 08/27/21 05:11 Ordered COMPREHENSIVE METABOLIC PN,CMP [CHEM] AM Lab 08/28/21 05:11 Ordered COMPREHENSIVE METABOLIC PN,CMP [CHEM] AM Lab 08/29/21 05:11 Ordered COMPREHENSIVE METABOLIC PN,CMP [CHEM] AM Lab 08/30/21 05:11 Ordered COMPREHENSIVE METABOLIC PN,CMP [CHEM] Routine Lab 08/26/21 13:52 Ordered D-DIMER QUANTITATIVE [COAG] Q48H Lab 08/27/21 05:11 Ordered D-DIMER QUANTITATIVE [COAG] Q48H Lab 08/29/21 05:11 Ordered D-DIMER QUANTITATIVE [COAG] Q48H Lab 08/31/21 05:11 Ordered MAGNESIUM [CHEM] AM Lab 08/27/21 05:11 Ordered MAGNESIUM [CHEM] AM Lab 08/28/21 05:11 Ordered MAGNESIUM [CHEM] AM Lab 08/29/21 05:11 Ordered MAGNESIUM [CHEM] AM Lab 08/30/21 05:11 Ordered PROCALCITONIN [REF] Routine Lab 08/26/21 13:45 Ordered Acetaminophen [TylenoL] Med 08/26/21 13:45 Active 650 mg PO Q4H PRN Albuterol [Proventil HFA] Med 08/26/21 13:45 Active See Dose Instructions INH Q2H PRN Albuterol/Ipratropium [DuoNeb 3.0-0.5 MG/3 ML] Med 08/26/21 13:45 Active 3 ml NEB QIDRT PRN Citalopram [Celexa] Med 08/27/21 09:00 Active 20 mg PO DAILY Docusate Sodium/Sennosides [Senna Plus] Med 08/26/21 13:45 Active 1 tab PO BID PRN Famotidine [Pepcid] Med 08/26/21 21:00 Active 20 mg PO BID Levothyroxine [Synthroid] Med 08/27/21 09:00 Active 100 mcg PO DAILY Ondansetron [Zofran] Med 08/26/21 13:45 Active 4 mg IV Q6H PRN Remdesivir 100 mg Med 08/27/21 18:30 Active Sodium Chloride 0.9% [Normal Saline] 100 ml IV Q24H Sodium Chloride 0.9% [Saline Flush] Med 08/25/21 16:50 Active 10 ml FLUSH ASDIRECTED PRN dexAMETHasone Med 08/26/21 18:30 Active 6 mg PO DAILY Isolation [COMM] Routine Oth 08/26/21 13:45 Ordered Peripheral IV Insertion Adult [OM.PC] Routine Oth 08/25/21 16:50 Ordered Medication Orders Acetaminophen (Acetaminophen 325 Mg Tab) 650 mg PO Q4H PRN PRN Reason: Pain (Mild 1-3)/fever Albuterol (Albuterol 6.7 Gm Inhaler) 0 gm INH Q2H PRN PRN Reason: Shortness of Breath Albuterol/Ipratropium (Albuterol/Ipratropium 3.0-0.5 Mg/3 Ml Neb Soln) 3 ml NEB QIDRT PRN PRN Reason: Shortness Of Breath/wheezing Citalopram Hydrobromide (Citalopram 20 Mg Tab) 20 mg PO DAILY SHAN Dexamethasone (Dexamethasone 4 Mg Tab) 6 mg PO DAILY SHAN Stop: 09/03/21 09:01 Famotidine (Famotidine 20 Mg Tab) 20 mg PO BID SHAN Remdesivir 100 mg/ Sodium (Chloride) 100 mls @ 100 mls/hr IV Q24H SHAN Stop: 08/30/21 19:29 Levothyroxine Sodium (Levothyroxine 100 Mcg Tab) 100 mcg PO DAILY SHAN Ondansetron HCl (Ondansetron 4 Mg/2 Ml Sdv) 4 mg IV Q6H PRN PRN Reason: Nausea/Vomiting Senna/Docusate Sodium (Docusate Sodium/Sennosides 50-8.6 Mg Tab) 1 tab PO BID PRN PRN Reason: Constipation Sodium Chloride (Sodium Chloride 0.9% 10 Ml Syringe) 10 ml FLUSH ASDIRECTED PRN PRN Reason: Keep Vein Open Last Admin: 08/25/21 17:07 Dose: 10 ml Documented by: WEST Assessment/Plan Comment:: Admission assessment - 08/26/2021 * 81-year-old female presents to ED on 08/25/2021 accompanied by her son for weakness * History of Hypothyroidism, hypoparathyroidism, hypertension, obesity with a BMI of 31, breast cancer and subsequent mastectomy, history of lymphoma, and a smoker who quit many years ago * Reports she has been feeling poorly for a few weeks but symptoms have worsened over the weekend. * States no appetite and has been feeling very lethargic. Has been unable to get up and make herself food. * Denies fevers or chills but reports increased cough and shortness of breath. * Reportedly seen at the walk-in clinic a few days earlier and given a Z-Gavin. * She is not vaccinated for COVID-19. * Labs are obtained showing: * WBC of 7.12. * Hemoglobin 11.7. * Platelet 152,000. * Neutrophils are elevated 72.2%. * CRP is 8.7. * Sodium is 137. * Potassium 4.0. * Chloride 104. * Carbon dioxide 21. * Anion gap 16.0. * BUN is 26. Creatinine 1.5. GFR is 33. * Glucose is 113. * Calcium 7.8. * Magnesium 2.1. * Total bilirubin 0.4. * AST is 57, ALT 35, alkaline phosphatase is 81. * Protein is 7.3. * Albumin is 3.0. * SARS-CoV-2 RNA is positive. * Chest x-ray is obtained showing findings suspicious for moderate to severe changes of COVID-19 pneumonia and other incidental findings. * She is started on 75 mils of NS, given 6 mg IV push dexamethasone and 200 mg remdesivir. * She is held overnight in the ED and subsequent mated to the medical floor on telemetry for management of her hypoxia due to COVID-19 pneumonia. PLAN: Pneumonia due to COVID-19 virus Hypoxia Former smoker * O2 as needed to keep saturations 88-95% * Telemetry * Continuous pulse oximetry * PT/OT * CM/SW * Remdesivir - day 12/20 * Dexamethasone - day 12/25 * RT consultation * PRN albuterol MDI * PRN Duonebs * IS * Start famotidine 20mg BID * Start zinc supplementation * Check procalcitonin * Lovenox 40mg daily * Daily labs * Check D-Dimer Q48 hours * Airborne/contact precautions [place] * Unsure of baseline * Given IV fluids in ED * Re-check CMP * Avoid nephrotoxic meds * Obtain old labs Hypertension * No acute concerns * Hold home Cozaar for now due to hypotension Hypoparathyroidism Hypothyroidism * No acute concerns * Continue home levothyroxine Obesity * No acute concerns * Consider apron man consultation History of breast cancer History of lymphoma S/P mastectomy * No acute concerns Code status: CPR only PCP: Dr. Arreguin DVT prophylaxis: Lovenox Social: Patient lives alone locally and has a son who helps Disposition: Patient admitted to floor for management of COVID-19 PNA. Likely LOS 4-5 days pending progress. - Mortality Measure Prognosis:: Good
[2021-08-26] MEDS: Enoxaparin 40 MG/0.4 ML Syringe SUBCUT SCH (16:42)
[2021-08-26] MEDS: Zinc Sulfate 220 MG Cap PO SCH (16:43)
[2021-08-26] MEDS: Dexamethasone 4 MG Tab PO SCH (17:39)
[2021-08-26] MEDS: Ondansetron 4 MG/2 ML SDV IV PRN (17:45)
[2021-08-26] MEDS ORDERED: FLU Vacc QS2021(65UP)/MF59C/PF 60 MCG/0.5 ML Syringe IM ONE (18:30)
[2021-08-26] MEDS ORDERED: REMDESIVIR 100 MG in Sodium Chloride 0.9% 100 ML IV SCH (18:30)
[2021-08-26] MEDS: Temazepam 7.5 MG Cap PO PRN (20:05)
[2021-08-26] MEDS: Famotidine 20 MG Tab PO SCH (20:05)
--- NOTE | 2021-08-27 07:50 | PCM.PN ---
- General Info Date of Service: 08/27/21 Admission Dx/Problem (Free Text): Admission Diagnosis/Problem Admission Diagnosis/Problem Hypoxia Functional Status: Reports: Pain Controlled, Tolerating Diet, Ambulating, Urinating. Denies: New Symptoms - Review of Systems General: Reports: No Symptoms, Weakness, Fatigue, Malaise. Denies: Fever, Chills HEENT: Reports: No Symptoms. Denies: Headaches, Sore Throat Pulmonary: Reports: Shortness of Breath, Cough, Sputum, Wheezing. Denies: Pleuritic Chest Pain Cardiovascular: Reports: Dyspnea on Exertion. Denies: Chest Pain, Palpitations, Edema Gastrointestinal: Denies: Abdominal Pain, Constipation, Diarrhea, Nausea, Vomiting Genitourinary: Reports: No Symptoms. Denies: Pain Musculoskeletal: Reports: No Symptoms Skin: Reports: No Symptoms. Denies: Cyanosis Neurological: Reports: No Symptoms, Weakness. Denies: Confusion, Dizziness, Headache, Numbness, Pre-Existing Deficit, Seizure, Syncope, Tingling, Tremors, Difficulty Walking, Gait Disturbance Psychiatric: Reports: No Symptoms - Patient Data Vitals - Most Recent: Last Vital Signs Temp 97.5 F 08/27/21 04:10 Pulse 43 L 08/27/21 04:10 Resp 16 08/27/21 04:10 BP 96/46 L 08/27/21 04:10 Pulse Ox 90 L 08/27/21 04:10 Weight - Most Recent: 176 lb 9.6 oz I&O - Last 24 Hours: Intake & Output 08/26/21 08/27/21 08/27/21 22:59 06:59 14:59 Intake Total 200 400 Output Total 0 600 Balance 200 -200 Lab Results Last 24 Hours: Laboratory Results - last 24 hr 08/26/21 08/27/21 08/27/21 Range/Units 14:30 05:00 05:00 WBC 8.72 (3.98-10.04) K/mm3 RBC 3.55 L (3.98-5.22) M/mm3 Hgb 11.2 (11.2-15.7) gm/dl Hct 34.5 (34.1-44.9) % MCV 97.2 H (79.4-94.8) fl MCH 31.5 (25.6-32.2) pg MCHC 32.5 (32.2-35.5) g/dl RDW Std Deviation 48.6 H (36.4-46.3) fL Plt Count 181 L (182-369) K/mm3 MPV 10.0 (9.4-12.3) fl Neut % (Auto) 79.7 H (34.0-71.1) % Lymph % (Auto) 13.6 L (19.3-51.7) % [place] % (Auto) 6.1 (4.7-12.5) % Eos % (Auto) 0 L (0.7-5.8) Baso % (Auto) 0.0 L (0.1-1.2) % Neut # (Auto) 6.95 H (1.56-6.13) K/mm3 Lymph # (Auto) 1.19 (1.18-3.74) K/mm3 [place] # (Auto) 0.53 H (0.24-0.36) K/mm3 Eos # (Auto) 0.00 L (0.04-0.36) K/mm3 Baso # (Auto) 0.00 L (0.01-0.08) K/mm3 D-Dimer, Quantitative 2.52 H (0.19-0.50) mg/L Sodium 143 (136-145) mEq/L Potassium 4.6 (3.5-5.1) mEq/L Chloride 109 H (98-107) mEq/L Carbon Dioxide 19 L (21-32) mEq/L Anion Gap 19.6 H (5-15) BUN 35 H (7-18) mg/dL Creatinine 1.4 H (0.55-1.02) mg/dL Est Cr Clr Drug Dosing 28.84 mL/min Estimated GFR (MDRD) 36 (>60) mL/min BUN/Creatinine Ratio 25.0 H (14-18) Glucose 125 H (70-99) mg/dL Calcium 8.1 L (8.5-10.1) mg/dL Magnesium (1.8-2.4) mg/dL Total Bilirubin 0.3 (0.2-1.0) mg/dL AST 48 H (15-37) U/L ALT 32 (14-59) U/L Alkaline Phosphatase 72 (46-116) U/L C-Reactive Protein (<1.0) mg/dL Total Protein 7.0 (6.4-8.2) g/dl Albumin 2.8 L (3.4-5.0) g/dl Globulin 4.2 gm/dL Albumin/Globulin Ratio 0.7 L (1-2) 08/27/21 Range/Units 05:00 WBC (3.98-10.04) K/mm3 RBC (3.98-5.22) M/mm3 Hgb (11.2-15.7) gm/dl Hct (34.1-44.9) % MCV (79.4-94.8) fl MCH (25.6-32.2) pg MCHC (32.2-35.5) g/dl RDW Std Deviation (36.4-46.3) fL Plt Count (182-369) K/mm3 MPV (9.4-12.3) fl Neut % (Auto) (34.0-71.1) % Lymph % (Auto) (19.3-51.7) % [place] % (Auto) (4.7-12.5) % Eos % (Auto) (0.7-5.8) Baso % (Auto) (0.1-1.2) % Neut # (Auto) (1.56-6.13) K/mm3 Lymph # (Auto) (1.18-3.74) K/mm3 [place] # (Auto) (0.24-0.36) K/mm3 Eos # (Auto) (0.04-0.36) K/mm3 Baso # (Auto) (0.01-0.08) K/mm3 D-Dimer, Quantitative (0.19-0.50) mg/L Sodium 140 (136-145) mEq/L Potassium 4.6 (3.5-5.1) mEq/L Chloride 109 H (98-107) mEq/L Carbon Dioxide 18 L (21-32) mEq/L Anion Gap 17.6 H (5-15) BUN 44 H (7-18) mg/dL Creatinine 1.4 H (0.55-1.02) mg/dL Est Cr Clr Drug Dosing 26.51 mL/min Estimated GFR (MDRD) 36 (>60) mL/min BUN/Creatinine Ratio 31.4 H (14-18) Glucose 151 H (70-99) mg/dL Calcium 7.8 L (8.5-10.1) mg/dL Magnesium 2.2 (1.8-2.4) mg/dL Total Bilirubin 0.2 (0.2-1.0) mg/dL AST 43 H (15-37) U/L ALT 31 (14-59) U/L Alkaline Phosphatase 67 (46-116) U/L C-Reactive Protein 5.9 H* (<1.0) mg/dL Total Protein 6.6 (6.4-8.2) g/dl Albumin 2.7 L (3.4-5.0) g/dl Globulin 3.9 gm/dL Albumin/Globulin Ratio 0.7 L (1-2) Med Orders - Current: Current Medications Acetaminophen (Acetaminophen 325 Mg Tab) 650 mg PO Q4H PRN PRN Reason: Pain (Mild 1-3)/fever Albuterol (Albuterol 6.7 Gm Inhaler) 0 gm INH Q2H PRN PRN Reason: Shortness of Breath Albuterol/Ipratropium (Albuterol/Ipratropium 3.0-0.5 Mg/3 Ml Neb Soln) 3 ml NEB QIDRT PRN PRN Reason: Shortness Of Breath/wheezing Citalopram Hydrobromide (Citalopram 20 Mg Tab) 20 mg PO DAILY [facility] Dexamethasone (Dexamethasone 4 Mg Tab) 6 mg PO DAILY [facility] Stop: 09/03/21 09:01 Last Admin: 08/26/21 17:39 Dose: 6 mg Documented by: Enoxaparin Sodium (Enoxaparin 40 Mg/0.4 Ml Syringe) 40 mg SUBCUT DAILY [facility] Last Admin: 08/26/21 16:42 Dose: 40 mg Documented by: Famotidine (Famotidine 20 Mg Tab) 20 mg PO BID [facility] Last Admin: 08/26/21 20:05 Dose: 20 mg Documented by: Remdesivir 100 mg/ Sodium (Chloride) 100 mls @ 100 mls/hr IV Q24H [facility] Stop: 08/29/21 19:29 Last Admin: 08/26/21 17:39 Dose: 100 mls/hr Documented by: Levothyroxine Sodium (Levothyroxine 100 Mcg Tab) 100 mcg PO DAILY [facility] Ondansetron HCl (Ondansetron 4 Mg/2 Ml Sdv) 4 mg IV Q6H PRN PRN Reason: Nausea/Vomiting Last Admin: 08/26/21 17:45 Dose: 4 mg Documented by: Senna/Docusate Sodium (Docusate Sodium/Sennosides 50-8.6 Mg Tab) 1 tab PO BID PRN PRN Reason: Constipation Sodium Chloride (Sodium Chloride 0.9% 10 Ml Syringe) 10 ml FLUSH ASDIRECTED PRN PRN Reason: Keep Vein Open Last Admin: 08/25/21 17:07 Dose: 10 ml Documented by: Temazepam (Temazepam 7.5 Mg Cap) 7.5 mg PO BEDTIME PRN PRN Reason: Insomnia Last Admin: 08/26/21 20:05 Dose: 7.5 mg Documented by: Zinc Sulfate (Zinc Sulfate 220 Mg Cap) 220 mg PO DAILY [facility] Last Admin: 08/26/21 16:43 Dose: 220 mg Documented by: Discontinued Medications Dexamethasone (Dexamethasone 10 Mg/Ml Sdv) 6 mg IVPUSH ONETIME ONE Stop: 08/25/21 18:53 Last Admin: 08/25/21 19:30 Dose: 6 mg Documented by: Remdesivir 200 mg/ Sodium (Chloride) 250 mls @ 250 mls/hr IV ONETIME ONE Stop: 08/25/21 18:53 Last Admin: 08/25/21 19:30 Dose: 250 mls/hr Documented by: Sodium Chloride (Normal Saline) 1,000 mls @ 75 mls/hr IV ONETIME ONE Stop: 08/26/21 08:14 Last Admin: 08/25/21 19:30 Dose: 75 mls/hr Documented by: Influenza Virus Vaccine (Pharmacy To Dose - Influenza Vaccine) 1 each IM ONETIME ONE Stop: 08/26/21 18:21 Influenza Virus Vaccine (Flu Vacc [id number](65up)/Mf59c/Pf 60 Mcg/0.5 Ml Syringe) 60 mcg IM .ONCE ONE Stop: 08/26/21 18:31 - Exam Quality Assessment: Supplemental Oxygen (4L), DVT Prophylaxis General: Alert, Oriented, Cooperative, No Acute Distress HEENT: Pupils Equal, EOMI, Mucous Membr. Moist/[place] Neck: Supple, Trachea Midline Lungs: Normal Respiratory Effort, Decreased Breath Sounds, Crackles, Wheezing Cardiovascular: Regular Rhythm, Bradycardia GI/Abdominal Exam: Normal Bowel Sounds, Soft, Non-Tender, No Distention (Female) Exam: Deferred Back Exam: Normal Inspection, Full Range of Motion Extremities: Normal Inspection, Normal Range of Motion, Non-Tender, No Pedal Edema, Normal Capillary Refill Skin: Warm, Dry, Intact Neurological: No New Focal Deficit Psy/Mental Status: Alert, Normal Affect, Normal Mood - Patient Data Lab Results Last 24 hrs: Laboratory Results - last 24 hr 08/26/21 08/27/21 08/27/21 Range/Units 14:30 05:00 05:00 WBC 8.72 (3.98-10.04) K/mm3 RBC 3.55 L (3.98-5.22) M/mm3 Hgb 11.2 (11.2-15.7) gm/dl Hct 34.5 (34.1-44.9) % MCV 97.2 H (79.4-94.8) fl MCH 31.5 (25.6-32.2) pg MCHC 32.5 (32.2-35.5) g/dl RDW Std Deviation 48.6 H (36.4-46.3) fL Plt Count 181 L (182-369) K/mm3 MPV 10.0 (9.4-12.3) fl Neut % (Auto) 79.7 H (34.0-71.1) % Lymph % (Auto) 13.6 L (19.3-51.7) % [place] % (Auto) 6.1 (4.7-12.5) % Eos % (Auto) 0 L (0.7-5.8) Baso % (Auto) 0.0 L (0.1-1.2) % Neut # (Auto) 6.95 H (1.56-6.13) K/mm3 Lymph # (Auto) 1.19 (1.18-3.74) K/mm3 [place] # (Auto) 0.53 H (0.24-0.36) K/mm3 Eos # (Auto) 0.00 L (0.04-0.36) K/mm3 Baso # (Auto) 0.00 L (0.01-0.08) K/mm3 D-Dimer, Quantitative 2.52 H (0.19-0.50) mg/L Sodium 143 (136-145) mEq/L Potassium 4.6 (3.5-5.1) mEq/L Chloride 109 H (98-107) mEq/L Carbon Dioxide 19 L (21-32) mEq/L Anion Gap 19.6 H (5-15) BUN 35 H (7-18) mg/dL Creatinine 1.4 H (0.55-1.02) mg/dL Est Cr Clr Drug Dosing 28.84 mL/min Estimated GFR (MDRD) 36 (>60) mL/min BUN/Creatinine Ratio 25.0 H (14-18) Glucose 125 H (70-99) mg/dL Calcium 8.1 L (8.5-10.1) mg/dL Magnesium (1.8-2.4) mg/dL Total Bilirubin 0.3 (0.2-1.0) mg/dL AST 48 H (15-37) U/L ALT 32 (14-59) U/L Alkaline Phosphatase 72 (46-116) U/L C-Reactive Protein (<1.0) mg/dL Total Protein 7.0 (6.4-8.2) g/dl Albumin 2.8 L (3.4-5.0) g/dl Globulin 4.2 gm/dL Albumin/Globulin Ratio 0.7 L (1-2) 08/27/21 Range/Units 05:00 WBC (3.98-10.04) K/mm3 RBC (3.98-5.22) M/mm3 Hgb (11.2-15.7) gm/dl Hct (34.1-44.9) % MCV (79.4-94.8) fl MCH (25.6-32.2) pg MCHC (32.2-35.5) g/dl RDW Std Deviation (36.4-46.3) fL Plt Count (182-369) K/mm3 MPV (9.4-12.3) fl Neut % (Auto) (34.0-71.1) % Lymph % (Auto) (19.3-51.7) % [place] % (Auto) (4.7-12.5) % Eos % (Auto) (0.7-5.8) Baso % (Auto) (0.1-1.2) % Neut # (Auto) (1.56-6.13) K/mm3 Lymph # (Auto) (1.18-3.74) K/mm3 [place] # (Auto) (0.24-0.36) K/mm3 Eos # (Auto) (0.04-0.36) K/mm3 Baso # (Auto) (0.01-0.08) K/mm3 D-Dimer, Quantitative (0.19-0.50) mg/L Sodium 140 (136-145) mEq/L Potassium 4.6 (3.5-5.1) mEq/L Chloride 109 H (98-107) mEq/L Carbon Dioxide 18 L (21-32) mEq/L Anion Gap 17.6 H (5-15) BUN 44 H (7-18) mg/dL Creatinine 1.4 H (0.55-1.02) mg/dL Est Cr Clr Drug Dosing 26.51 mL/min Estimated GFR (MDRD) 36 (>60) mL/min BUN/Creatinine Ratio 31.4 H (14-18) Glucose 151 H (70-99) mg/dL Calcium 7.8 L (8.5-10.1) mg/dL Magnesium 2.2 (1.8-2.4) mg/dL Total Bilirubin 0.2 (0.2-1.0) mg/dL AST 43 H (15-37) U/L ALT 31 (14-59) U/L Alkaline Phosphatase 67 (46-116) U/L C-Reactive Protein 5.9 H* (<1.0) mg/dL Total Protein 6.6 (6.4-8.2) g/dl Albumin 2.7 L (3.4-5.0) g/dl Globulin 3.9 gm/dL Albumin/Globulin Ratio 0.7 L (1-2) Result Diagrams: 08/27/21 05:00 08/27/21 05:00 Sepsis Event Note - Evaluation Sepsis Screening Result: No Definite Risk - Focused Exam Vital Signs: Vital Signs Temp Pulse Resp BP Pulse Ox Pulse Ox 08/27/21 04:10 97.5 F 43 L 16 96/46 L 90 L 08/26/21 21:05 93 L 08/26/21 20:00 98.1 F 50 L 24 H 112/59 L 91 L - Problem List & Annotations (1) Pneumonia due to COVID-19 virus SNOMED Code(s): 960792092151932946 Code(s): U07.1 - COVID-19; J12.82 - PNEUMONIA DUE TO CORONAVIRUS DISEASE 2019 Status: Acute Priority: High Current Visit: Yes (2) Hypoxia SNOMED Code(s): 567895016 Code(s): R09.02 - HYPOXEMIA Status: Acute Priority: High Current Visit: Yes (3) Hypertension SNOMED Code(s): 09547192 Code(s): I10 - ESSENTIAL (PRIMARY) HYPERTENSION Status: Chronic Priority: Medium Current Visit: No Qualifiers: Hypertension type: unspecified Qualified Code(s): I10 - Essential (primary) hypertension (4) Hypoparathyroidism SNOMED Code(s): 86671360 Code(s): E20.9 - HYPOPARATHYROIDISM, UNSPECIFIED Status: Chronic Priority: Low Current Visit: No Qualifiers: Hypoparathyroidism type: unspecified Qualified Code(s): E20.9 - Hypoparathyroidism, unspecified (5) Obesity SNOMED Code(s): 741482447, 767106302 Code(s): E66.9 - OBESITY, UNSPECIFIED Status: Chronic Priority: Low Current Visit: No Qualifiers: Obesity type: unspecified obesity type Obesity classification: adult class 1 (BMI 30 - 34.9) Serious obesity comorbidity presence: unspecified whether serious comorbidity present Body mass index: BMI 31.0-31.9 Qualified Cod e(s): E66.9 - Obesity, unspecified; Z68.31 - Body mass index [BMI] 31.0-31.9, adult (6) History of breast cancer SNOMED Code(s): 994350722 Code(s): Z85.3 - PERSONAL HISTORY OF MALIGNANT NEOPLASM OF BREAST Status: Chronic Priority: Low Current Visit: No (7) History of lymphoma SNOMED Code(s): 970538035 Code(s): Z85.79 - PRSNL HX OF MALIG NEOPLM OF LYMPHOID, HEMATPOETC & REL TISS Status: Chronic Priority: Low Current Visit: No (8) S/P mastectomy SNOMED Code(s): 691183489, 82627135, 889189855 Code(s): Z90.10 - ACQUIRED ABSENCE OF UNSPECIFIED BREAST AND NIPPLE Status: Chronic Priority: Low Current Visit: No Qualifiers: Laterality: unspecified laterality Qualified Code(s): Z90.10 - Acquired absence of unspecified breast and nipple (9) Former smoker SNOMED Code(s): 6529118 Code(s): Z87.891 - PERSONAL HISTORY OF NICOTINE DEPENDENCE Status: Chronic Priority: Low Current Visit: No (10) Hypothyroid SNOMED Code(s): 43396053 Code(s): E03.9 - HYPOTHYROIDISM, UNSPECIFIED Status: Chronic Priority: Low Current Visit: No Qualifiers: Hypothyroidism type: unspecified Qualified Code(s): E03.9 - Hypothyroidism, unspecified (11) [place] (acute kidney injury) SNOMED Code(s): 24268138, 81761907 Code(s): N17.9 - ACUTE KIDNEY FAILURE, UNSPECIFIED Status: Acute Priority: Medium Current Visit: Yes (12) Elevated d-dimer SNOMED Code(s): 810089391 Code(s): R79.89 - OTHER SPECIFIED ABNORMAL FINDINGS OF BLOOD CHEMISTRY Status: Acute Priority: High Current Visit: Yes - Problem List Review Problem List Initiated/Reviewed/Updated: Yes - My Orders Last 24 Hours: My Active Orders 08/26/21 13:45 Height and Weight [RC] 0600 Oxygen Therapy [RC] ASDIRECTED RT Incentive Spirometry [RC] ASDIRECTED Vital Signs [RC] 0400,1000,1600,2200 Consult to Case Management/Fiber Picker [CONS] Routine Acetaminophen [TylenoL] 650 mg PO Q4H PRN Albuterol [Proventil HFA] See Dose Instructions INH Q2H PRN Albuterol/Ipratropium [DuoNeb 3.0-0.5 MG/3 ML] 3 ml NEB QIDRT PRN Docusate Sodium/Sennosides [Senna Plus] 1 tab PO BID PRN Ondansetron [Zofran] 4 mg IV Q6H PRN Isolation [COMM] Routine 08/26/21 13:46 Patient Status [ADT] Routine Cardiac Monitoring [RC] CONTINUOUS Pulse Oximetry [RC] CONTINUOUS Up With Assistance [RC] ASDIRECTED 08/26/21 13:47 RT Aerosol Therapy [RC] ASDIRECTED 08/26/21 13:49 OT Evaluation and Treatment [CONS] Routine PT Evaluation and Treatment [CONS] Routine Respiratory Care Assess and Treatment [CONS] Routine 08/26/21 13:50 Positioning, Patient [RC] ASDIRECTED 08/26/21 14:15 Enoxaparin [Lovenox] 40 mg SUBCUT DAILY Zinc Sulfate [Zincate] 220 mg PO DAILY 08/26/21 14:30 PROCALCITONIN [REF] Routine 08/26/21 16:10 Code Status [Resuscitation Status] Routine 08/26/21 Dinner Regular Diet [DIET] 08/26/21 18:30 Remdesivir 100 mg Sodium Chloride 0.9% [Normal Saline] 100 ml IV Q24H dexAMETHasone 6 mg PO DAILY 08/26/21 21:00 Famotidine [Pepcid] 20 mg PO BID 08/27/21 09:00 Citalopram [Celexa] 20 mg PO DAILY Levothyroxine [Synthroid] 100 mcg PO DAILY 08/28/21 05:11 C-REACTIVE PROTEIN [CHEM] AM CBC WITH AUTO DIFF [HEME] AM COMPREHENSIVE METABOLIC PN,CMP [CHEM] AM MAGNESIUM [CHEM] AM 08/29/21 05:11 C-REACTIVE PROTEIN [CHEM] AM CBC WITH AUTO DIFF [HEME] AM COMPREHENSIVE METABOLIC PN,CMP [CHEM] AM D-DIMER QUANTITATIVE [COAG] Q48H MAGNESIUM [CHEM] AM 08/30/21 05:11 C-REACTIVE PROTEIN [CHEM] AM CBC WITH AUTO DIFF [HEME] AM COMPREHENSIVE METABOLIC PN,CMP [CHEM] AM MAGNESIUM [CHEM] AM 08/31/21 05:11 D-DIMER QUANTITATIVE [COAG] Q48H - Assessment Assessment:: Admission assessment - 08/26/2021 * 81-year-old female presents to ED on 08/25/2021 accompanied by her son for weakness * History of Hypothyroidism, hypoparathyroidism, hypertension, obesity with a BMI of 31, breast cancer and subsequent mastectomy, history of lymphoma, and a smoker who quit many years ago * Reports she has been feeling poorly for a few weeks but symptoms have worsened over the weekend. * States no appetite and has been feeling very lethargic. Has been unable to get up and make herself food. * Denies fevers or chills but reports increased cough and shortness of breath. * Reportedly seen at the walk-in clinic a few days earlier and given a Z-Gavin. * She is not vaccinated for COVID-19. * Labs are obtained showing: * WBC of 7.12. * Hemoglobin 11.7. * Platelet 152,000. * Neutrophils are elevated 72.2%. * CRP is 8.7. * Sodium is 137. * Potassium 4.0. * Chloride 104. * Carbon dioxide 21. * Anion gap 16.0. * BUN is 26. Creatinine 1.5. GFR is 33. * Glucose is 113. * Calcium 7.8. * Magnesium 2.1. * Total bilirubin 0.4. * AST is 57, ALT 35, alkaline phosphatase is 81. * Protein is 7.3. * Albumin is 3.0. * SARS-CoV-2 RNA is positive. * Chest x-ray is obtained showing findings suspicious for moderate to severe changes of COVID-19 pneumonia and other incidental findings. * She is started on 75 mils of NS, given 6 mg IV push dexamethasone and 200 mg remdesivir. * She is held overnight in the ED and subsequent mated to the medical floor on telemetry for management of her hypoxia due to COVID-19 pneumonia. 08/27/2021 This is an 81-year-old female admitted to the floor for treatment of COVID-19 pneumonia. She is currently on 4 L of oxygen with saturations in the low 90s. She has been a bit bradycardic with heart rate in the 40s and 50s. Labs today show a WBC of 8.72. Hemoglobin is 11.2. Platelets 181,000. Neutrophils are 79.7%. D-dimer is elevated at 2.52. Sodium is 140. Potassium 4.6. Chloride 109. Carbon dioxide 18. Anion gap is 17.6. BUN is 44. Creatinine 1.4. GFR is 36. Glucose is 151. Magnesium is 2.2. Bilirubin 0.2. AST is 43, ALT 31, alkaline phosphatase 67. CRP is 5.9. Albumin is 2.7. Given her elevated D- dimer and after discussion with Dr. Benson, attending hospitalist we will order a CTA today to rule out PE. Continue treatment with dexamethasone and remdesivir. - Plan Plan:: Pneumonia due to COVID-19 virus Hypoxia Former smoker Elevated D-Dimer * O2 as needed to keep saturations 88-95% * Telemetry * Continuous pulse oximetry * PT/OT * CM/SW * Remdesivir - day 3/ * Dexamethasone - day 01/22 * RT consultation * PRN albuterol MDI * PRN Duonebs * IS * Famotidine 20mg BID * Zinc supplementation * Check procalcitonin * Lovenox 40mg daily * Daily labs * Check D-Dimer Q48 hours * Airborne/contact precautions * CTA today to rule out DVT [place] * Acute on chronic * Creatinine on prior labs of 1.15, BUN 23, GFR 46. * Monitor daily labs * Avoid nephrotoxic meds Hypertension * No acute concerns * Hold home Cozaar for now due to hypotension Hypoparathyroidism Hypothyroidism * No acute concerns * Continue home levothyroxine Obesity * No acute concerns * Consider seafood packer consultation History of breast cancer History of lymphoma S/P mastectomy * No acute concerns Code status: CPR only PCP: Dr. Arreguin DVT prophylaxis: Lovenox Social: Patient lives alone locally and has a son who helps Disposition: Patient admitted to floor for management of COVID-19 PNA. Likely LOS 4-5 days pending progress.
[2021-08-27] MEDS: Enoxaparin 40 MG/0.4 ML Syringe SUBCUT SCH (09:47)
[2021-08-27] MEDS: Citalopram 20 MG Tab PO SCH (09:47)
[2021-08-27] MEDS: Zinc Sulfate 220 MG Cap PO SCH (09:47)
[2021-08-27] MEDS: Dexamethasone 4 MG Tab PO SCH (09:48)
[2021-08-27] MEDS: Levothyroxine 100 MCG Tab PO SCH (09:48)
[2021-08-27] MEDS ORDERED: Iopamidol 755 Mg/ML 100 ML Bottle IVPUSH ONE (12:03)
[2021-08-27] MEDS ORDERED: Sodium Chloride 0.9% 10 ML Syringe FLUSH ONE (12:03)
[2021-08-27] MEDS ORDERED: Sodium Chloride 0.9% 100 ML IV SCH (12:15)
--- NOTE | 2021-08-27 12:39 | CT ---
CT chest Technique: Multiple axial sections through the chest were obtained. Comparison: Prior chest x-ray of 08/25/21. Findings: Low-density nodule is noted within the left lobe of the thyroid gland measuring approximately 2.3 cm. Pulmonary arteries are well opacified. No filling defects are seen to indicate pulmonary embolism. Thoracic aorta shows mild atherosclerotic calcification with no aneurysm. Mediastinum shows no adenopathy. No axillary adenopathy is seen. Heart is somewhat enlarged. Mitral annulus calcification is noted. Visualized upper abdominal structures show nothing acute. Lung window settings were reviewed which show scattered areas of parenchymal change throughout both sides of the chest. No pleural effusions are seen. Bone window settings were reviewed. Scattered disc space narrowing and endplate spurring is noted within the spine. No acute osseous abnormality is appreciated. Impression: 1. Findings of COVID pneumonia within both sides of the chest. Findings are without definite change from prior chest x-ray. 2. No findings of pulmonary embolism are seen. 3. Low-density nodule within the left lobe of the thyroid gland. Given the patient's age this is likely incidental. 4. Other chronic findings as noted above. Diagnostic code #3
[2021-08-27] MEDS: Famotidine 20 MG Tab PO SCH ×2 (16:57→21:25)
[2021-08-27] MEDS: Albuterol/Ipratropium 3.0-0.5 MG/3 ML Neb Soln NEB PRN (20:28)
[2021-08-27] MEDS: Temazepam 7.5 MG Cap PO PRN (21:25)
--- NOTE | 2021-08-28 06:44 | PCM.PN ---
- General Info Date of Service: 08/28/21 Admission Dx/Problem (Free Text): Admission Diagnosis/Problem Admission Diagnosis/Problem Hypoxia Functional Status: Reports: Pain Controlled, Tolerating Diet, Ambulating, Urinating. Denies: New Symptoms - Review of Systems General: Reports: Weakness, Fatigue, Malaise. Denies: Fever, Chills HEENT: Reports: No Symptoms. Denies: Headaches, Sore Throat Pulmonary: Reports: Shortness of Breath, Pleuritic Chest Pain, Cough, Sputum. Denies: Wheezing Cardiovascular: Reports: Dyspnea on Exertion. Denies: Chest Pain, Palpitations, Edema, Lightheadedness Gastrointestinal: Denies: Abdominal Pain, Constipation, Diarrhea, Nausea, Vomiting Genitourinary: Reports: No Symptoms. Denies: Pain Musculoskeletal: Reports: No Symptoms Skin: Reports: No Symptoms. Denies: Cyanosis Neurological: Reports: Difficulty Walking (Secondary to weakness and hypoxia), Weakness. Denies: Confusion, Headache, Numbness, Pre-Existing Deficit, Seizure, Syncope, Tingling, Trouble Speaking, Gait Disturbance Psychiatric: Reports: No Symptoms - Patient Data Vitals - Most Recent: Last Vital Signs Temp 98.5 F 08/27/21 21:35 Pulse 52 L 08/27/21 21:35 Resp 20 08/27/21 21:35 BP 112/56 L 08/27/21 21:35 Pulse Ox 92 L 08/27/21 22:05 Weight - Most Recent: 176 lb 9.585 oz I&O - Last 24 Hours: Intake & Output 08/27/21 08/27/21 08/28/21 14:59 22:59 06:59 Intake Total 100 300 Output Total 500 350 Balance 100 -200 -350 Lab Results Last 24 Hours: Laboratory Results - last 24 hr 08/26/21 08/27/21 Range/Units 14:30 05:00 Procalcitonin 0.09 ng/mL TSH 3rd Generation 3.289 (0.358-3.74) uIU/mL Med Orders - Current: Current Medications Acetaminophen (Acetaminophen 325 Mg Tab) 650 mg PO Q4H PRN PRN Reason: Pain (Mild 1-3)/fever Albuterol (Albuterol 6.7 Gm Inhaler) 0 gm INH Q2H PRN PRN Reason: Shortness of Breath Albuterol/Ipratropium (Albuterol/Ipratropium 3.0-0.5 Mg/3 Ml Neb Soln) 3 ml NEB QIDRT PRN PRN Reason: Shortness Of Breath/wheezing Last Admin: 08/27/21 20:28 Dose: 3 ml Documented by: Citalopram Hydrobromide (Citalopram 20 Mg Tab) 20 mg PO DAILY [facility] Last Admin: 08/27/21 09:47 Dose: 20 mg Documented by: Dexamethasone (Dexamethasone 4 Mg Tab) 6 mg PO DAILY [facility] Stop: 09/03/21 09:01 Last Admin: 08/27/21 09:48 Dose: 6 mg Documented by: Enoxaparin Sodium (Enoxaparin 40 Mg/0.4 Ml Syringe) 40 mg SUBCUT DAILY [facility] Last Admin: 08/27/21 09:47 Dose: 40 mg Documented by: Famotidine (Famotidine 20 Mg Tab) 20 mg PO BEDTIME [facility] Last Admin: 08/27/21 21:25 Dose: 20 mg Documented by: Levothyroxine Sodium (Levothyroxine 100 Mcg Tab) 100 mcg PO DAILY [facility] Last Admin: 08/27/21 09:48 Dose: 100 mcg Documented by: Ondansetron HCl (Ondansetron 4 Mg/2 Ml Sdv) 4 mg IV Q6H PRN PRN Reason: Nausea/Vomiting Last Admin: 08/26/21 17:45 Dose: 4 mg Documented by: Senna/Docusate Sodium (Docusate Sodium/Sennosides 50-8.6 Mg Tab) 1 tab PO BID PRN PRN Reason: Constipation Sodium Chloride (Sodium Chloride 0.9% 10 Ml Syringe) 10 ml FLUSH ASDIRECTED PRN PRN Reason: Keep Vein Open Last Admin: 08/25/21 17:07 Dose: 10 ml Documented by: Temazepam (Temazepam 7.5 Mg Cap) 7.5 mg PO BEDTIME PRN PRN Reason: Insomnia Last Admin: 08/27/21 21:25 Dose: 7.5 mg Documented by: Zinc Sulfate (Zinc Sulfate 220 Mg Cap) 220 mg PO DAILY [facility] Last Admin: 08/27/21 09:47 Dose: 220 mg Documented by: Discontinued Medications Dexamethasone (Dexamethasone 10 Mg/Ml Sdv) 6 mg IVPUSH ONETIME ONE Stop: 08/25/21 18:53 Last Admin: 08/25/21 19:30 Dose: 6 mg Documented by: Famotidine (Famotidine 20 Mg Tab) 20 mg PO BID [facility] Last Admin: 08/27/21 16:57 Dose: Not Given Documented by: Remdesivir 200 mg/ Sodium (Chloride) 250 mls @ 250 mls/hr IV ONETIME ONE Stop: 08/25/21 18:53 Last Admin: 08/25/21 19:30 Dose: 250 mls/hr Documented by: Sodium Chloride (Normal Saline) 1,000 mls @ 75 mls/hr IV ONETIME ONE Stop: 08/26/21 08:14 Last Admin: 08/25/21 19:30 Dose: 75 mls/hr Documented by: Remdesivir 100 mg/ Sodium (Chloride) 100 mls @ 100 mls/hr IV Q24H [facility] Stop: 08/29/21 19:29 Last Admin: 08/26/21 17:39 Dose: 100 mls/hr Documented by: Sodium Chloride (Normal Saline) 100 mls @ 60 mls/hr IV ASDIRECTED [facility] Stop: 08/27/21 16:00 Last Admin: 08/27/21 12:32 Dose: 60 mls/hr Documented by: Influenza Virus Vaccine (Pharmacy To Dose - Influenza Vaccine) 1 each IM ONETIME ONE Stop: 08/26/21 18:21 Influenza Virus Vaccine (Flu Vacc Eu3463(65up)/Mf59c/Pf 60 Mcg/0.5 Ml Syringe) 60 mcg IM .ONCE ONE Stop: 08/26/21 18:31 Iopamidol (Iopamidol 755 Mg/Ml 100 Ml Bottle) 100 ml IVPUSH ONETIME ONE Stop: 08/27/21 12:04 Last Admin: 08/27/21 12:32 Dose: 100 ml Documented by: Sodium Chloride (Sodium Chloride 0.9% 10 Ml Syringe) 10 ml FLUSH ONETIME ONE Stop: 08/27/21 12:04 Last Admin: 08/27/21 14:55 Dose: Not Given Documented by: - Exam Quality Assessment: Supplemental Oxygen (5L), DVT Prophylaxis. No: Urine Catheter General: Alert, Oriented, Cooperative, No Acute Distress HEENT: Pupils Equal, Pupils Reactive, Mucous Membr. Moist/[place] Neck: Supple, Trachea Midline Lungs: Normal Respiratory Effort, Decreased Breath Sounds, Crackles. No: Rhonchi, Wheezing Cardiovascular: Regular Rhythm, Bradycardia GI/Abdominal Exam: Normal Bowel Sounds, Soft, Non-Tender, No Distention (Female) Exam: Deferred Back Exam: Normal Inspection, Full Range of Motion Extremities: Normal Inspection, Normal Range of Motion, Non-Tender, No Pedal Edema, Normal Capillary Refill Skin: Warm, Dry, Intact Neurological: No New Focal Deficit Psy/Mental Status: Alert, Normal Affect, Normal Mood - Patient Data Lab Results Last 24 hrs: Laboratory Results - last 24 hr 08/26/21 08/27/21 Range/Units 14:30 05:00 Procalcitonin 0.09 ng/mL TSH 3rd Generation 3.289 (0.358-3.74) uIU/mL Result Diagrams: 08/28/21 06:20 08/28/21 06:20 Sepsis Event Note - Evaluation Sepsis Screening Result: No Definite Risk - Focused Exam Vital Signs: Vital Signs Temp Pulse Resp BP Pulse Ox Pulse Ox Pulse Ox 08/27/21 22:05 92 L 08/27/21 21:35 98.5 F 52 L 20 112/56 L 95 08/27/21 20:28 90 L - Problem List & Annotations (1) Pneumonia due to COVID-19 virus SNOMED Code(s): 457350846668634661 Code(s): U07.1 - COVID-19; J12.82 - PNEUMONIA DUE TO CORONAVIRUS DISEASE 2019 Status: Acute Priority: High Current Visit: Yes (2) Hypoxia SNOMED Code(s): 867908006 Code(s): R09.02 - HYPOXEMIA Status: Acute Priority: High Current Visit: Yes (3) Hypertension SNOMED Code(s): 35487248 Code(s): I10 - ESSENTIAL (PRIMARY) HYPERTENSION Status: Chronic Priority: Medium Current Visit: No Qualifiers: Hypertension type: unspecified Qualified Code(s): I10 - Essential (primary) hypertension (4) Hypoparathyroidism SNOMED Code(s): 28168794 Code(s): E20.9 - HYPOPARATHYROIDISM, UNSPECIFIED Status: Chronic Priority: Low Current Visit: No Qualifiers: Hypoparathyroidism type: unspecified Qualified Code(s): E20.9 - Hypoparathyroidism, unspecified (5) Obesity SNOMED Code(s): 931973898, 667483934 Code(s): E66.9 - OBESITY, UNSPECIFIED Status: Chronic Priority: Low Current Visit: No Qualifiers: Obesity type: unspecified obesity type Obesity classification: adult class 1 (BMI 30 - 34.9) Serious obesity comorbidity presence: unspecified whether serious comorbidity present Body mass index: BMI 31.0-31.9 Qualified Code(s): E66.9 - Obesity, unspecified; Z68.31 - Body mass index [BMI] 31.0-31.9, adult (6) History of breast cancer SNOMED Code(s): 266735028 Code(s): Z85.3 - PERSONAL HISTORY OF MALIGNANT NEOPLASM OF BREAST Status: Chronic Priority: Low Current Visit: No (7) History of lymphoma SNOMED Code(s): 937193563 Code(s): Z85.79 - PRSNL HX OF MALIG NEOPLM OF LYMPHOID, HEMATPOETC & REL TISS Status: Chronic Priority: Low Current Visit: No (8) S/P mastectomy SNOMED Code(s): 163207107, 63200160, 585835028 Code(s): Z90.10 - ACQUIRED ABSENCE OF UNSPECIFIED BREAST AND NIPPLE Status: Chronic Priority: Low Current Visit: No Qualifiers: Laterality: unspecified laterality Qualified Code(s): Z90.10 - Acquired absence of unspecified breast and nipple (9) Former smoker SNOMED Code(s): 3960018 Code(s): Z87.891 - PERSONAL HISTORY OF NICOTINE DEPENDENCE Status: Chronic Priority: Low Current Visit: No (10) Hypothyroid SNOMED Code(s): 42076409 Code(s): E03.9 - HYPOTHYROIDISM, UNSPECIFIED Status: Chronic Priority: Low Current Visit: No Qualifiers: Hypothyroidism type: unspecified Qualified Code(s): E03.9 - Hypothyroidism, unspecified (11) [place] (acute kidney injury) SNOMED Code(s): 13109024, 01204957 Code(s): N17.9 - ACUTE KIDNEY FAILURE, UNSPECIFIED Status: Acute Priority: Medium Current Visit: Yes (12) Elevated d-dimer SNOMED Code(s): 626452276 Code(s): R79.89 - OTHER SPECIFIED ABNORMAL FINDINGS OF BLOOD CHEMISTRY Status: Acute Priority: High Current Visit: Yes - Problem List Review Problem List Initiated/Reviewed/Updated: Yes - My Orders Last 24 Hours: My Active Orders 08/27/21 09:00 Citalopram [Celexa] 20 mg PO DAILY Levothyroxine [Synthroid] 100 mcg PO DAILY 08/27/21 21:00 Famotidine [Pepcid] 20 mg PO BEDTIME 08/28/21 05:11 C-REACTIVE PROTEIN [CHEM] AM CBC WITH AUTO DIFF [HEME] AM COMPREHENSIVE METABOLIC PN,CMP [CHEM] AM MAGNESIUM [CHEM] AM 08/29/21 05:11 C-REACTIVE PROTEIN [CHEM] AM CBC WITH AUTO DIFF [HEME] AM COMPREHENSIVE METABOLIC PN,CMP [CHEM] AM D-DIMER QUANTITATIVE [COAG] Q48H MAGNESIUM [CHEM] AM 08/30/21 05:11 C-REACTIVE PROTEIN [CHEM] AM CBC WITH AUTO DIFF [HEME] AM COMPREHENSIVE METABOLIC PN,CMP [CHEM] AM MAGNESIUM [CHEM] AM 08/31/21 05:11 D-DIMER QUANTITATIVE [COAG] Q48H - Assessment Assessment:: Admission assessment - 08/26/2021 * 81-year-old female presents to ED on 08/25/2021 accompanied by her son for weakness * History of Hypothyroidism, hypoparathyroidism, hypertension, obesity with a BMI of 31, breast cancer and subsequent mastectomy, history of lymphoma, and a smoker who quit many years ago * Reports she has been feeling poorly for a few weeks but symptoms have worsened over the weekend. * States no appetite and has been feeling very lethargic. Has been unable to get up and make herself food. * Denies fevers or chills but reports increased cough and shortness of breath. * Reportedly seen at the walk-in clinic a few days earlier and given a Z-Gavin. * She is not vaccinated for COVID-19. * Labs are obtained showing: * WBC of 7.12. * Hemoglobin 11.7. * Platelet 152,000. * Neutrophils are elevated 72.2%. * CRP is 8.7. * Sodium is 137. * Potassium 4.0. * Chloride 104. * Carbon dioxide 21. * Anion gap 16.0. * BUN is 26. Creatinine 1.5. GFR is 33. * Glucose is 113. * Calcium 7.8. * Magnesium 2.1. * Total bilirubin 0.4. * AST is 57, ALT 35, alkaline phosphatase is 81. * Protein is 7.3. * Albumin is 3.0. * SARS-CoV-2 RNA is positive. * Chest x-ray is obtained showing findings suspicious for moderate to severe changes of COVID-19 pneumonia and other incidental findings. * She is started on 75 mils of NS, given 6 mg IV push dexamethasone and 200 mg remdesivir. * She is held overnight in the ED and subsequent mated to the medical floor on telemetry for management of her hypoxia due to COVID-19 pneumonia. 08/27/2021 This is an 81-year-old female admitted to the floor for treatment of COVID-19 pneumonia. She is currently on 4 L of oxygen with saturations in the low 90s. She has been a bit bradycardic with heart rate in the 40s and 50s. Labs today show a WBC of 8.72. Hemoglobin is 11.2. Platelets 181,000. Neutrophils are 79.7%. D-dimer is elevated at 2.52. Sodium is 140. Potassium 4.6. Chloride 109. Carbon dioxide 18. Anion gap is 17.6. BUN is 44. Creatinine 1.4. GFR is 36. Glucose is 151. Magnesium is 2.2. Bilirubin 0.2. AST is 43, ALT 31, alkaline phosphatase 67. CRP is 5.9. Albumin is 2.7. Given her elevated D- dimer and after discussion with Dr. Benson, attending hospitalist we will order a CTA today to rule out PE. Continue treatment with dexamethasone and remdesivir. 08/28/2021 This is an 81-year-old female admitted to the floor for treatment of COVID-19 pneumonia. She was requiring 7 L of oxygen overnight and has been weaned down to 5 L with saturations in the upper 80s. Labs show a leukocytosis of 11.79, likely steroid related. Hemoglobin is 11.1. Platelets are 228,000. Neutrophils are 83.4. Sodium is 140. Potassium 4.8. Chloride 110. Carbon dioxide is 22. Anion gap is 12.8. BUN is 45. Creatinine 1.3. GFR is 39. Glucose 150. Calcium is 8.0. Magnesium 2.3. Total bilirubin 0.2. AST is 45, ALT 36, alkaline phosphatase 67. CRP is 2.5. Albumin is 2.7. TSH checked yesterday was 3.289. Unfortunately patient was having bradycardia and it is felt this was due to remdesivir. Remdesivir was therefore stopped. Her catarina ycardia has improved with a heart rate now in the 40s and 50s. We will continue current treatment plan. - Plan Plan:: Pneumonia due to COVID-19 virus Hypoxia Former smoker Elevated D-Dimer * O2 as needed to keep saturations 88-95% * Telemetry * Continuous pulse oximetry * PT/OT * CM/SW * Remdesivir - day 02/17 * Dexamethasone - day 02/22 * RT consultation * PRN albuterol MDI * PRN Duonebs * IS * Famotidine 20mg BID * Zinc supplementation * Lovenox 40mg daily * Daily labs * Check D-Dimer Q48 hours * Airborne/contact precautions [place], improving * Acute on chronic * Creatinine on prior labs of 1.15, BUN 23, GFR 46. * Monitor daily labs * Avoid nephrotoxic meds Hypertension * No acute concerns * Hold home Cozaar for now due to hypotension Hypoparathyroidism Hypothyroidism * No acute concerns * Continue home levothyroxine Obesity * No acute concerns * Consider marketing development manager consultation History of breast cancer History of lymphoma S/P mastectomy * No acute concerns Code status: CPR only PCP: Dr. Arreguin DVT prophylaxis: Lovenox Social: Patient lives alone locally and has a son who helps Disposition: Patient admitted to floor for management of COVID-19 PNA. Likely LOS 4-5 days pending progress.
[2021-08-28] MEDS: Albuterol/Ipratropium 3.0-0.5 MG/3 ML Neb Soln NEB PRN (07:59)
[2021-08-28] MEDS: Dexamethasone 4 MG Tab PO SCH (08:41)
[2021-08-28] MEDS: Citalopram 20 MG Tab PO SCH (08:43)
[2021-08-28] MEDS: Levothyroxine 100 MCG Tab PO SCH (08:43)
[2021-08-28] MEDS: Zinc Sulfate 220 MG Cap PO SCH (08:44)
[2021-08-28] MEDS: Enoxaparin 40 MG/0.4 ML Syringe SUBCUT SCH (08:44)
[2021-08-28] MEDS ORDERED: Codeine/guaiFENesin 10-100 MG/5 ML Syrup 5 ML Cup PO SCH (12:00)
[2021-08-28] MEDS ORDERED: Polyethylene Glycol 3350 Powder 17 GM Packet PO ONE (17:50)
[2021-08-28] MEDS: Famotidine 20 MG Tab PO SCH (20:11)
[2021-08-28] MEDS: Codeine/guaiFENesin 10-100 MG/5 ML Syrup 5 ML Cup PO SCH ×2 (20:12→21:59)
--- NOTE | 2021-08-28 20:56 | PCM.EKG ---
#1 Interpretation EKG Date: 08/28/21 Time: 20:05 Rhythm: A-Fib Rate (Beats/Min): 80 Buna: Normal P-Wave: Absent QRS: Normal ST-T: Normal QT: Normal EKG Interpretation Comments: New onset atrial fibrillation
--- NOTE | 2021-08-28 20:59 | PCM.SN.2 ---
- Free Text/Narrative Note: Called by nursing that patient was noted by ICU that pt. went into a. fib this morning. Her rate has increased throughout the day and is now running from 50 - 80. ECG was performed to confirm a. fib. Lovenox was increased to 1mg/kg bid. Time Documentation
[2021-08-28] MEDS ORDERED: Enoxaparin 80 MG/0.8 ML Syringe SUBCUT SCH (21:00)
[2021-08-29] MEDS: Temazepam 7.5 MG Cap PO PRN ×2 (01:02→21:22)
[2021-08-29] MEDS: Codeine/guaiFENesin 10-100 MG/5 ML Syrup 5 ML Cup PO SCH ×4 (04:29→21:21)
--- NOTE | 2021-08-29 08:14 | PCM.PN ---
- General Info Date of Service: 08/29/21 Admission Dx/Problem (Free Text): Admission Diagnosis/Problem Admission Diagnosis/Problem Hypoxia Functional Status: Reports: Pain Controlled, Tolerating Diet, Ambulating, Urinating, Incentive Spirometry. Denies: New Symptoms - Review of Systems General: Reports: No Symptoms, Weakness, Fatigue, Malaise. Denies: Fever, Chills HEENT: Reports: No Symptoms. Denies: Headaches, Sore Throat Pulmonary: Reports: No Symptoms, Shortness of Breath, Cough, Sputum. Denies: Pleuritic Chest Pain, Wheezing Cardiovascular: Reports: Dyspnea on Exertion. Denies: Chest Pain, Palpitations, Edema Gastrointestinal: Reports: Constipation. Denies: Abdominal Pain, Diarrhea, Nausea, Vomiting Genitourinary: Reports: No Symptoms Musculoskeletal: Reports: Other (Generalized myalgias) Skin: Reports: No Symptoms. Denies: Cyanosis Neurological: Reports: Difficulty Walking, Weakness. Denies: Confusion, Dizziness, Headache, Numbness, Pre-Existing Deficit, Seizure, Syncope, Tingling, Gait Disturbance Psychiatric: Reports: No Symptoms - Patient Data Vitals - Most Recent: Last Vital Signs Temp 97.5 F 08/29/21 04:28 Pulse 72 08/29/21 04:28 Resp 20 08/29/21 04:28 BP 100/77 08/29/21 04:28 Pulse Ox 92 L 08/29/21 04:28 Weight - Most Recent: 175 lb 4.8 oz I&O - Last 24 Hours: Intake & Output 08/28/21 08/29/21 08/29/21 22:59 06:59 14:59 Intake Total 620 800 Output Total 460 750 Balance 160 50 Lab Results Last 24 Hours: Laboratory Results - last 24 hr 08/29/21 08/29/21 08/29/21 Range/Units 06:16 06:16 06:16 WBC 10.30 H (3.98-10.04) K/mm3 RBC 3.68 L (3.98-5.22) M/mm3 Hgb 11.5 (11.2-15.7) gm/dl Hct 35.8 (34.1-44.9) % MCV 97.3 H (79.4-94.8) fl MCH 31.3 (25.6-32.2) pg MCHC 32.1 L (32.2-35.5) g/dl RDW Std Deviation 48.3 H (36.4-46.3) fL Plt Count 246 (182-369) K/mm3 MPV 9.8 (9.4-12.3) fl Neut % (Auto) 78.5 H (34.0-71.1) % Lymph % (Auto) 12.3 L (19.3-51.7) % [place] % (Auto) 7.4 (4.7-12.5) % Eos % (Auto) 0 L (0.7-5.8) Baso % (Auto) 0.1 (0.1-1.2) % Neut # (Auto) 8.08 H (1.56-6.13) K/mm3 Lymph # (Auto) 1.27 (1.18-3.74) K/mm3 [place] # (Auto) 0.76 H (0.24-0.36) K/mm3 Eos # (Auto) 0.00 L (0.04-0.36) K/mm3 Baso # (Auto) 0.01 (0.01-0.08) K/mm3 Manual Slide Review Normal smear D-Dimer, Quantitative 1.08 H (0.19-0.50) mg/L Sodium 142 (136-145) mEq/L Potassium 4.4 (3.5-5.1) mEq/L Chloride 110 H (98-107) mEq/L Carbon Dioxide 20 L (21-32) mEq/L Anion Gap 16.4 H (5-15) BUN 41 H (7-18) mg/dL Creatinine 1.3 H (0.55-1.02) mg/dL Est Cr Clr Drug Dosing 28.54 mL/min Estimated GFR (MDRD) 39 (>60) mL/min BUN/Creatinine Ratio 31.5 H (14-18) Glucose 130 H (70-99) mg/dL Calcium 8.3 L (8.5-10.1) mg/dL Magnesium 2.4 (1.8-2.4) mg/dL Total Bilirubin 0.2 (0.2-1.0) mg/dL AST 40 H (15-37) U/L ALT 42 (14-59) U/L Alkaline Phosphatase 70 (46-116) U/L C-Reactive Protein 1.1 H* (<1.0) mg/dL Total Protein 6.5 (6.4-8.2) g/dl Albumin 2.7 L (3.4-5.0) g/dl Globulin 3.8 gm/dL Albumin/Globulin Ratio 0.7 L (1-2) Med Orders - Current: Current Medications Acetaminophen (Acetaminophen 325 Mg Tab) 650 mg PO Q4H PRN PRN Reason: Pain (Mild 1-3)/fever Albuterol (Albuterol 6.7 Gm Inhaler) 0 gm INH Q2H PRN PRN Reason: Shortness of Breath Albuterol/Ipratropium (Albuterol/Ipratropium 3.0-0.5 Mg/3 Ml Neb Soln) 3 ml NEB QIDRT PRN PRN Reason: Shortness Of Breath/wheezing Last Admin: 08/28/21 07:59 Dose: 3 ml Documented by: Citalopram Hydrobromide (Citalopram 20 Mg Tab) 20 mg PO DAILY [facility] Last Admin: 08/28/21 08:43 Dose: 20 mg Documented by: Dexamethasone (Dexamethasone 4 Mg Tab) 6 mg PO DAILY [facility] Stop: 09/03/21 09:01 Last Admin: 08/28/21 08:41 Dose: 6 mg Documented by: Enoxaparin Sodium (Enoxaparin 80 Mg/0.8 Ml Syringe) 80 mg SUBCUT BEDTIME [facility] Last Admin: 08/28/21 21:59 Dose: 80 mg Documented by: Famotidine (Famotidine 20 Mg Tab) 20 mg PO BEDTIME [facility] Last Admin: 08/28/21 20:11 Dose: 20 mg Documented by: Guaifenesin/Codeine Phosphate (Codeine/Guaifenesin 10-100 Mg/5 Ml Syrup 5 Ml Cup) 5 ml PO Q6H [facility] Last Admin: 08/29/21 04:29 Dose: 5 ml Documented by: Levothyroxine Sodium (Levothyroxine 100 Mcg Tab) 100 mcg PO DAILY [facility] Last Admin: 08/28/21 08:43 Dose: 100 mcg Documented by: Ondansetron HCl (Ondansetron 4 Mg/2 Ml Sdv) 4 mg IV Q6H PRN PRN Reason: Nausea/Vomiting Last Admin: 08/26/21 17:45 Dose: 4 mg Documented by: Senna/Docusate Sodium (Docusate Sodium/Sennosides 50-8.6 Mg Tab) 1 tab PO BID PRN PRN Reason: Constipation Sodium Chloride (Sodium Chloride 0.9% 10 Ml Syringe) 10 ml FLUSH ASDIRECTED PRN PRN Reason: Keep Vein Open Last Admin: 08/25/21 17:07 Dose: 10 ml Documented by: Temazepam (Temazepam 7.5 Mg Cap) 7.5 mg PO BEDTIME PRN PRN Reason: Insomnia Last Admin: 08/29/21 01:02 Dose: 7.5 mg Documented by: Zinc Sulfate (Zinc Sulfate 220 Mg Cap) 220 mg PO DAILY [facility] Last Admin: 08/28/21 08:44 Dose: 220 mg Documented by: Discontinued Medications Dexamethasone (Dexamethasone 10 Mg/Ml Sdv) 6 mg IVPUSH ONETIME ONE Stop: 08/25/21 18:53 Last Admin: 08/25/21 19:30 Dose: 6 mg Documented by: Enoxaparin Sodium (Enoxaparin 40 Mg/0.4 Ml Syringe) 40 mg SUBCUT DAILY [facility] Last Admin: 08/28/21 08:44 Dose: 40 mg Documented by: Famotidine (Famotidine 20 Mg Tab) 20 mg PO BID [facility] Last Admin: 08/27/21 16:57 Dose: Not Given Documented by: Guaifenesin/Codeine Phosphate (Codeine/Guaifenesin 10-100 Mg/5 Ml Syrup 5 Ml Cup) 5 ml PO Q6H [facility] Last Admin: 08/28/21 15:36 Dose: 5 ml Documented by: Remdesivir 200 mg/ Sodium (Chloride) 250 mls @ 250 mls/hr IV ONETIME ONE Stop: 08/25/21 18:53 Last Admin: 08/25/21 19:30 Dose: 250 mls/hr Documented by: Sodium Chloride (Normal Saline) 1,000 mls @ 75 mls/hr IV ONETIME ONE Stop: 08/26/21 08:14 Last Admin: 08/25/21 19:30 Dose: 75 mls/hr Documented by: Remdesivir 100 mg/ Sodium (Chloride) 100 mls @ 100 mls/hr IV Q24H [facility] Stop: 08/29/21 19:29 Last Admin: 08/26/21 17:39 Dose: 100 mls/hr Documented by: Sodium Chloride (Normal Saline) 100 mls @ 60 mls/hr IV ASDIRECTED [facility] Stop: 08/27/21 16:00 Last Admin: 08/27/21 12:32 Dose: 60 mls/hr Documented by: Influenza Virus Vaccine (Pharmacy To Dose - Influenza Vaccine) 1 each IM ONETIME ONE Stop: 08/26/21 18:21 Influenza Virus Vaccine (Flu Vacc Zz1550(65up)/Mf59c/Pf 60 Mcg/0.5 Ml Syringe) 60 mcg IM .ONCE ONE Stop: 08/26/21 18:31 Iopamidol (Iopamidol 755 Mg/Ml 100 Ml Bottle) 100 ml IVPUSH ONETIME ONE Stop: 08/27/21 12:04 Last Admin: 08/27/21 12:32 Dose: 100 ml Documented by: Polyethylene Glycol (Polyethylene Glycol 3350 Powder 17 Gm Packet) 17 gm PO ONETIME ONE Stop: 08/28/21 17:51 Last Admin: 08/28/21 18:52 Dose: 17 gm Documented by: Sodium Chloride (Sodium Chloride 0.9% 10 Ml Syringe) 10 ml FLUSH ONETIME ONE Stop: 08/27/21 12:04 Last Admin: 08/27/21 14:55 Dose: Not Given Documented by: - Exam Quality Assessment: Supplemental Oxygen (3L ), DVT Prophylaxis. No: Urine Catheter General: Alert, Oriented, Cooperative, No Acute Distress HEENT: Pupils Equal, Pupils Reactive, Mucous Membr. Moist/[place] Neck: Supple, Trachea Midline Lungs: Normal Respiratory Effort, Decreased Breath Sounds, Crackles Cardiovascular: Irregular Rhythm, Bradycardia GI/Abdominal Exam: Normal Bowel Sounds, Soft, Non-Tender, No Distention (Female) Exam: Deferred Back Exam: Normal Inspection, Full Range of Motion Extremities: Normal Inspection, Normal Range of Motion, Non-Tender, No Pedal Edema, Normal Capillary Refill Skin: Warm, Dry, Intact Neurological: No New Focal Deficit Psy/Mental Status: Alert, Normal Affect, Normal Mood - Patient Data Lab Results Last 24 hrs: Laboratory Results - last 24 hr 08/29/21 08/29/21 08/29/21 Range/Units 06:16 06:16 06:16 WBC 10.30 H (3.98-10.04) K/mm3 RBC 3.68 L (3.98-5.22) M/mm3 Hgb 11.5 (11.2-15.7) gm/dl Hct 35.8 (34.1-44.9) % MCV 97.3 H (79.4-94.8) fl MCH 31.3 (25.6-32.2) pg MCHC 32.1 L (32.2-35.5) g/dl RDW Std Deviation 48.3 H (36.4-46.3) fL Plt Count 246 (182-369) K/mm3 MPV 9.8 (9.4-12.3) fl Neut % (Auto) 78.5 H (34.0-71.1) % Lymph % (Auto) 12.3 L (19.3-51.7) % [place] % (Auto) 7.4 (4.7-12.5) % Eos % (Auto) 0 L (0.7-5.8) Baso % (Auto) 0.1 (0.1-1.2) % Neut # (Auto) 8.08 H (1.56-6.13) K/mm3 Lymph # (Auto) 1.27 (1.18-3.74) K/mm3 [place] # (Auto) 0.76 H (0.24-0.36) K/mm3 Eos # (Auto) 0.00 L (0.04-0.36) K/mm3 Baso # (Auto) 0.01 (0.01-0.08) K/mm3 Manual Slide Review Normal smear D-Dimer, Quantitative 1.08 H (0.19-0.50) mg/L Sodium 142 (136-145) mEq/L Potassium 4.4 (3.5-5.1) mEq/L Chloride 110 H (98-107) mEq/L Carbon Dioxide 20 L (21-32) mEq/L Anion Gap 16.4 H (5-15) BUN 41 H (7-18) mg/dL Creatinine 1.3 H (0.55-1.02) mg/dL Est Cr Clr Drug Dosing 28.54 mL/min Estimated GFR (MDRD) 39 (>60) mL/min BUN/Creatinine Ratio 31.5 H (14-18) Glucose 130 H (70-99) mg/dL Calcium 8.3 L (8.5-10.1) mg/dL Magnesium 2.4 (1.8-2.4) mg/dL Total Bilirubin 0.2 (0.2-1.0) mg/dL AST 40 H (15-37) U/L ALT 42 (14-59) U/L Alkaline Phosphatase 70 (46-116) U/L C-Reactive Protein 1.1 H* (<1.0) mg/dL Total Protein 6.5 (6.4-8.2) g/dl Albumin 2.7 L (3.4-5.0) g/dl Globulin 3.8 gm/dL Albumin/Globulin Ratio 0.7 L (1-2) Result Diagrams: 08/29/21 06:16 08/29/21 06:16 Sepsis Event Note - Evaluation Sepsis Screening Result: No Definite Risk - Focused Exam Vital Signs: Vital Signs Temp Pulse Resp BP Pulse Ox 08/29/21 04:28 97.5 F 72 20 100/77 92 L 08/29/21 00:51 67 20 110/45 L 88 L 08/28/21 20:19 98.1 F 98 20 112/64 88 L - Problem List & Annotations (1) Pneumonia due to COVID-19 virus SNOMED Code(s): 045644148358679290 Code(s): U07.1 - COVID-19; J12.82 - PNEUMONIA DUE TO CORONAVIRUS DISEASE 2019 Status: Acute Priority: High Current Visit: Yes (2) Hypoxia SNOMED Code(s): 055584761 Code(s): R09.02 - HYPOXEMIA Status: Acute Priority: High Current Visit: Yes (3) Hypertension SNOMED Code(s): 79024142 Code(s): I10 - ESSENTIAL (PRIMARY) HYPERTENSION Status: Chronic Priority: Medium Current Visit: No Qualifiers: Hypertension type: unspecified Qualified Code(s): I10 - Essential (primary) hypertension (4) Hypoparathyroidism SNOMED Code(s): 29140989 Code(s): E20.9 - HYPOPARATHYROIDISM, UNSPECIFIED Status: Chronic Priority: Low Current Visit: No Qualifiers: Hypoparathyroidism type: unspecified Qualified Code(s): E20.9 - Hypoparathy roidism, unspecified (5) Obesity SNOMED Code(s): 122747088, 246520761 Code(s): E66.9 - OBESITY, UNSPECIFIED Status: Chronic Priority: Low Current Visit: No Qualifiers: Obesity type: unspecified obesity type Obesity classification: adult class 1 (BMI 30 - 34.9) Serious obesity comorbidity presence: unspecified whether serious comorbidity present Body mass index: BMI 31.0-31.9 Qualified Code(s): E66.9 - Obesity, unspecified; Z68.31 - Body mass index [BMI] 31.0-31.9, adult (6) History of breast cancer SNOMED Code(s): 370266322 Code(s): Z85.3 - PERSONAL HISTORY OF MALIGNANT NEOPLASM OF BREAST Status: Chronic Priority: Low Current Visit: No (7) History of lymphoma SNOMED Code(s): 606270852 Code(s): Z85.79 - PRSNL HX OF MALIG NEOPLM OF LYMPHOID, HEMATPOETC & REL TISS Status: Chronic Priority: Low Current Visit: No (8) S/P mastectomy SNOMED Code(s): 058151643, 02729077, 361649482 Code(s): Z90.10 - ACQUIRED ABSENCE OF UNSPECIFIED BREAST AND NIPPLE Status: Chronic Priority: Low Current Visit: No Qualifiers: Laterality: unspecified laterality Qualified Code(s): Z90.10 - Acquired absence of unspecified breast and nipple (9) Former smoker SNOMED Code(s): 7982515 Code(s): Z87.891 - PERSONAL HISTORY OF NICOTINE DEPENDENCE Status: Chronic Priority: Low Current Visit: No (10) Hypothyroid SNOMED Code(s): 52776682 Code(s): E03.9 - HYPOTHYROIDISM, UNSPECIFIED Status: Chronic Priority: Low Current Visit: No Qualifiers: Hypothyroidism type: unspecified Qualified Code(s): E03.9 - Hypothyroidism, unspecified (11) [place] (acute kidney injury) SNOMED Code(s): 14426756, 04465870 Code(s): N17.9 - ACUTE KIDNEY FAILURE, UNSPECIFIED Status: Acute Priority: Medium Current Visit: Yes (12) Elevated d-dimer SNOMED Code(s): 371546977 Code(s): R79.89 - OTHER SPECIFIED ABNORMAL FINDINGS OF BLOOD CHEMISTRY Sta tus: Acute Priority: High Current Visit: Yes (13) New onset a-fib SNOMED Code(s): 45361132 Code(s): I48.91 - UNSPECIFIED ATRIAL FIBRILLATION Status: Acute Priority: High Current Visit: Yes - Problem List Review Problem List Initiated/Reviewed/Updated: Yes - My Orders Last 24 Hours: My Active Orders 08/28/21 22:00 Codeine/guaiFENesin [Robitussin AC] 5 ml PO Q6H 08/29/21 08:10 Echo 2D wo Cont [US] Routine 08/30/21 05:11 C-REACTIVE PROTEIN [CHEM] AM CBC WITH AUTO DIFF [HEME] AM COMPREHENSIVE METABOLIC PN,CMP [CHEM] AM MAGNESIUM [CHEM] AM 08/31/21 05:11 D-DIMER QUANTITATIVE [COAG] Q48H - Assessment Assessment:: Admission assessment - 08/26/2021 * 81-year-old female presents to ED on 08/25/2021 accompanied by her son for weakness * History of Hypothyroidism, hypoparathyroidism, hypertension, obesity with a BMI of 31, breast cancer and subsequent mastectomy, history of lymphoma, and a smoker who quit many years ago * Reports she has been feeling poorly for a few weeks but symptoms have worsened over the weekend. * States no appetite and has been feeling very lethargic. Has been unable to get up and make herself food. * Denies fevers or chills but reports increased cough and shortness of breath. * Reportedly seen at the walk-in clinic a few days earlier and given a Z-Gavin. * She is not vaccinated for COVID-19. * Labs are obtained showing: * WBC of 7.12. * Hemoglobin 11.7. * Platelet 152,000. * Neutrophils are elevated 72.2%. * CRP is 8.7. * Sodium is 137. * Potassium 4.0. * Chloride 104. * Carbon dioxide 21. * Anion gap 16.0. * BUN is 26. Creatinine 1.5. GFR is 33. * Glucose is 113. * Calcium 7.8. * Magnesium 2.1. * Total bilirubin 0.4. * AST is 57, ALT 35, alkaline phosphatase is 81. * Protein is 7.3. * Albumin is 3.0. * SARS-CoV-2 RNA is positive. * Chest x-ray is obtained showing findings suspicious for moderate to severe changes of COVID-19 pneumonia and other incidental findings. * She is started on 75 mils of NS, given 6 mg IV push dexamethasone and 200 mg remdesivir. * She is held overnight in the ED and subsequent mated to the medical floor on telemetry for management of her hypoxia due to COVID-19 pneumonia. 08/27/2021 This is an 81-year-old female admitted to the floor for treatment of COVID-19 pneumonia. She is currently on 4 L of oxygen with saturations in the low 90s. She has been a bit bradycardic with heart rate in the 40s and 50s. Labs today show a WBC of 8.72. Hemoglobin is 11.2. Platelets 181,000. Neutrophils are 79.7%. D-dimer is elevated at 2.52. Sodium is 140. Potassium 4.6. Chloride 109. Carbon dioxide 18. Anion gap is 17.6. BUN is 44. Creatinine 1.4. GFR is 36. Glucose is 151. Magnesium is 2.2. Bilirubin 0.2. AST is 43, ALT 31, alkaline phosphatase 67. CRP is 5.9. Albumin is 2.7. Given her elevated D- dimer and after discussion with Dr. Benson, attending hospitalist we will order a CTA today to rule out PE. Continue treatment with dexamethasone and remdesivir. 08/28/2021 This is an 81-year-old female admitted to the floor for treatment of COVID-19 pneumonia. She was requiring 7 L of oxygen overnight and has been weaned down to 5 L with saturations in the upper 80s. Labs show a leukocytosis of 11.79, likely steroid related. Hemoglobin is 11.1. Platelets are 228,000. Neutrophils are 83.4. Sodium is 140. Potassium 4.8. Chloride 110. Carbon dioxide is 22. Anion gap is 12.8. BUN is 45. Creatinine 1.3. GFR is 39. Glucose 150. Calcium is 8.0. Magnesium 2.3. Total bilirubin 0.2. AST is 45, ALT 36, alkaline phosphatase 67. CRP is 2.5. Albumin is 2.7. TSH checked yesterday was 3.289. Unfortunately patient was having bradycardia and it is felt this was due to remdesivir. Remdesivir was therefore stopped. Her bradycardia has improved with a heart rate now in the 40s and 50s. We will continue current treatment plan. 08/29/2021 This is an 81-year-old female admitted to the floor for treatment of her COVID- 19 pneumonia. She was started on remdesivir and dexamethasone and once on the floor was noted to be bradycardic so remdesivir was stopped. Yesterday she began having new onset atrial fibrillation which was EKG confirmed. TSH has been checked the day earlier and was on the high end of normal at 3.289. She was started on 1 mg/kg of Lovenox twice daily and will be transition to 5 mg Eliquis twice daily today. Echocardiogram is ordered and pending. Her oxygen demand is improving and she is on 3 L currently via nasal cannula. Overall she says she feels terrible and has generalized myalgias and weakness. White count today is slightly elevated at 10.30. This is likely steroid related. Platelets are 246,000. D-dimer is down to 1.08. Sodium 142. Potassium 4.4. Carbon dioxide 20. Anion gap is 16.4. BUN is 41. Creatinine 1.3. GFR is up to 39. Magnesium is 2.4. CRP is down to 1.1. Albumin is 2.7. She will remain hospitalized pending continued improvement. - Plan Plan:: Pneumonia due to COVID-19 virus Hypoxia Former smoker Elevated D-Dimer * O2 as needed to keep saturations 88-95% * Telemetry * Continuous pulse oximetry * PT/OT * CM/SW * Remdesivir - Discontinued due to bradycardia * Dexamethasone - day 02/22 * RT consultation * PRN albuterol MDI * PRN Duonebs * IS * Famotidine 20mg BID * Zinc supplementation * Lovenox 40mg daily * Daily labs * Check D-Dimer Q48 hours * Airborne/contact precautions New onset A-fib * Telemetry * Lovenox 1mg/kg started 08/29/2021 * Transition to 5mg BID Eliquis today * Echocardiogram ordered [place], improving * Acute on chronic * Creatinine on prior labs of 1.15, BUN 23, GFR 46. * Monitor daily labs * Avoid nephrotoxic meds Hypertension * No acute concerns * Hold home Cozaar for now due to hypotension Hypoparathyroidism Hypothyroidism * No acute concerns * Continue home levothyroxine Obesity * No acute concerns * Consider global president consultation History of breast cancer History of lymphoma S/P mastectomy * No acute concerns Code status: CPR only PCP: Dr. Arreguin DVT prophylaxis: Lovenox Social: Patient lives alone locally and has a son who helps Disposition: Patient admitted to floor for management of COVID-19 PNA. Likely LOS 4-5 days pending progress.
[2021-08-29] MEDS: Albuterol/Ipratropium 3.0-0.5 MG/3 ML Neb Soln NEB PRN (08:59)
[2021-08-29] MEDS ORDERED: Apixaban 5 MG Tab PO SCH (09:15)
[2021-08-29] MEDS: Citalopram 20 MG Tab PO SCH (09:51)
[2021-08-29] MEDS: Dexamethasone 4 MG Tab PO SCH (09:51)
[2021-08-29] MEDS: Levothyroxine 100 MCG Tab PO SCH (09:52)
[2021-08-29] MEDS: Zinc Sulfate 220 MG Cap PO SCH (09:52)
[2021-08-29] MEDS: Rivaroxaban 15 MG Tab PO SCH (16:19)
[2021-08-29] MEDS: Famotidine 20 MG Tab PO SCH (21:20)
--- NOTE | 2021-08-29 22:20 | PCM.EKG ---
#1 Interpretation EKG Date: 08/28/21 Time: 20:05 Rhythm: A-Fib Rate (Beats/Min): 80 Eastern: Normal P-Wave: Absent QRS: Normal ST-T: Normal QT: Normal Comparison: NA - No Prior EKG EKG Interpretation Comments: Atrial fibrillation. Abnormal EKG.
[2021-08-30] MEDS: Codeine/guaiFENesin 10-100 MG/5 ML Syrup 5 ML Cup PO SCH ×6 (04:50→22:17)
[2021-08-30] MEDS: Albuterol/Ipratropium 3.0-0.5 MG/3 ML Neb Soln NEB PRN ×2 (08:32→15:42)
[2021-08-30] MEDS: Zinc Sulfate 220 MG Cap PO SCH (09:53)
[2021-08-30] MEDS: Levothyroxine 100 MCG Tab PO SCH (09:54)
[2021-08-30] MEDS: Dexamethasone 4 MG Tab PO SCH (09:54)
[2021-08-30] MEDS: Citalopram 20 MG Tab PO SCH (09:54)
--- NOTE | 2021-08-30 15:29 | PCM.PN ---
- General Info Date of Service: 08/30/21 Admission Dx/Problem (Free Text): Admission Diagnosis/Problem Admission Diagnosis/Problem Hypoxia Subjective Update: Patient is feeling fine. Does not have any new complaints. Denies fever, chills, nausea or vomiting. She is on 2 to 3 L Blood pressure was a soft of this morning. It is improving this afternoon Creatinine 1.2, GFR 43 CRP 1.0 - Review of Systems Systems Review Comment:: General: Reports: No Symptoms, Weakness, Fatigue, Malaise. Denies: Fever, Chills HEENT: Reports: No Symptoms. Denies: Headaches, Sore Throat Pulmonary: Reports: No Symptoms, Shortness of Breath, Cough, Sputum. Denies: Pleuritic Chest Pain, Wheezing Cardiovascular: Reports: Dyspnea on Exertion. Denies: Chest Pain, Palpitations, Edema Gastrointestinal: Reports: Constipation. Denies: Abdominal Pain, Diarrhea, Nausea, Vomiting Genitourinary: Reports: No Symptoms Musculoskeletal: Reports: Other (Generalized myalgias) Skin: Reports: No Symptoms. Denies: Cyanosis Neurological: Reports: Difficulty Walking, Weakness. Denies: Confusion, Dizziness, Headache, Numbness, Pre-Existing Deficit, Seizure, Syncope, Tingling, Gait Disturbance Psychiatric: Reports: No Symptoms - Patient Data Vitals - Most Recent: Last Vital Signs Temp 36.6 C 08/30/21 11:49 Pulse 68 08/30/21 11:43 Resp 22 H 08/30/21 11:39 BP 102/54 L 08/30/21 11:43 Pulse Ox 94 L 08/30/21 11:53 Weight - Most Recent: 80.286 kg I&O - Last 24 Hours: Intake & Output 08/30/21 08/30/21 08/30/21 06:59 14:59 22:59 Intake Total 300 Output Total 350 Balance -50 Lab Results Last 24 Hours: Laboratory Results - last 24 hr 08/30/21 08/30/21 Range/Units 07:40 07:40 WBC 10.27 H (3.98-10.04) K/mm3 RBC 3.66 L (3.98-5.22) M/mm3 Hgb 11.5 (11.2-15.7) gm/dl Hct 35.6 (34.1-44.9) % MCV 97.3 H (79.4-94.8) fl MCH 31.4 (25.6-32.2) pg MCHC 32.3 (32.2-35.5) g/dl RDW Std Deviation 47.8 H (36.4-46.3) fL Plt Count 248 (182-369) K/mm3 MPV 9.7 (9.4-12.3) fl Neut % (Auto) 73.9 H (34.0-71.1) % Lymph % (Auto) 14.8 L (19.3-51.7) % [place] % (Auto) 7.3 (4.7-12.5) % Eos % (Auto) 0 L (0.7-5.8) Baso % (Auto) 0.2 (0.1-1.2) % Neut # (Auto) 7.59 H (1.56-6.13) K/mm3 Lymph # (Auto) 1.52 (1.18-3.74) K/mm3 [place] # (Auto) 0.75 H (0.24-0.36) K/mm3 Eos # (Auto) 0.00 L (0.04-0.36) K/mm3 Baso # (Auto) 0.02 (0.01-0.08) K/mm3 Manual Slide Review Normal smear Sodium 141 (136-145) mEq/L Potassium 4.2 (3.5-5.1) mEq/L Chloride 108 H (98-107) mEq/L Carbon Dioxide 25 (21-32) mEq/L Anion Gap 12.2 (5-15) BUN 34 H (7-18) mg/dL Creatinine 1.2 H (0.55-1.02) mg/dL Est Cr Clr Drug Dosing 30.93 mL/min Estimated GFR (MDRD) 43 (>60) mL/min BUN/Creatinine Ratio 28.3 H (14-18) Glucose 101 H (70-99) mg/dL Calcium 8.5 (8.5-10.1) mg/dL Magnesium 2.3 (1.8-2.4) mg/dL Total Bilirubin 0.4 (0.2-1.0) mg/dL AST 34 (15-37) U/L ALT 43 (14-59) U/L Alkaline Phosphatase 69 (46-116) U/L C-Reactive Protein 1.0 (<1.0) mg/dL Total Protein 6.5 (6.4-8.2) g/dl Albumin 2.7 L (3.4-5.0) g/dl Globulin 3.8 gm/dL Albumin/Globulin Ratio 0.7 L (1-2) Med Orders - Current: Current Medications Acetaminophen (Acetaminophen 325 Mg Tab) 650 mg PO Q4H PRN PRN Reason: Pain (Mild 1-3)/fever Last Admin: 08/30/21 10:05 Dose: 650 mg Documented by: Albuterol (Albuterol 6.7 Gm Inhaler) 0 gm INH Q2H PRN PRN Reason: Shortness of Breath Albuterol/Ipratropium (Albuterol/Ipratropium 3.0-0.5 Mg/3 Ml Neb Soln) 3 ml NEB QIDRT PRN PRN Reason: Shortness Of Breath/wheezing Last Admin: 08/30/21 08:32 Dose: 3 ml Documented by: Citalopram Hydrobromide (Citalopram 20 Mg Tab) 20 mg PO DAILY [facility] Last Admin: 08/30/21 09:54 Dose: 20 mg Documented by: Dexamethasone (Dexamethasone 4 Mg Tab) 6 mg PO DAILY [facility] Stop: 09/03/21 09:01 Last Admin: 08/30/21 09:54 Dose: 6 mg Documented by: Famotidine (Famotidine 20 Mg Tab) 20 mg PO BEDTIME [facility] Last Admin: 08/29/21 21:20 Dose: 20 mg Documented by: Guaifenesin/Codeine Phosphate (Codeine/Guaifenesin 10-100 Mg/5 Ml Syrup 5 Ml Cup) 5 ml PO Q6H [facility] Last Admin: 08/30/21 09:51 Dose: 5 ml Documented by: Levothyroxine Sodium (Levothyroxine 100 Mcg Tab) 100 mcg PO DAILY [facility] Last Admin: 08/30/21 09:54 Dose: 100 mcg Documented by: Ondansetron HCl (Ondansetron 4 Mg/2 Ml Sdv) 4 mg IV Q6H PRN PRN Reason: Nausea/Vomiting Last Admin: 08/26/21 17:45 Dose: 4 mg Documented by: Rivaroxaban (Rivaroxaban 15 Mg Tab) 15 mg PO WITHDINNER [facility] Last Admin: 08/29/21 16:19 Dose: 15 mg Documented by: Senna/Docusate Sodium (Docusate Sodium/Sennosides 50-8.6 Mg Tab) 1 tab PO BID PRN PRN Reason: Constipation Last Admin: 08/30/21 10:07 Dose: 1 tab Documented by: Sodium Chloride (Sodium Chloride 0.9% 10 Ml Syringe) 10 ml FLUSH ASDIRECTED PRN PRN Reason: Keep Vein Open Last Admin: 08/25/21 17:07 Dose: 10 ml Documented by: Temazepam (Temazepam 7.5 Mg Cap) 7.5 mg PO BEDTIME PRN PRN Reason: Insomnia Last Admin: 08/29/21 21:22 Dose: 7.5 mg Documented by: Zinc Sulfate (Zinc Sulfate 220 Mg Cap) 220 mg PO DAILY [facility] Last Admin: 08/30/21 09:53 Dose: 220 mg Documented by: Discontinued Medications Apixaban (Apixaban 5 Mg Tab) 5 mg PO BID [facility] Last Admin: 08/29/21 09:51 Dose: 5 mg Documented by: Dexamethasone (Dexamethasone 10 Mg/Ml Sdv) 6 mg IVPUSH ONETIME ONE Stop: 08/25/21 18:53 Last Admin: 08/25/21 19:30 Dose: 6 mg Documented by: Enoxaparin Sodium (Enoxaparin 40 Mg/0.4 Ml Syringe) 40 mg SUBCUT DAILY [facility] Last Admin: 08/28/21 08:44 Dose: 40 mg Documented by: Enoxaparin Sodium (Enoxaparin 80 Mg/0.8 Ml Syringe) 80 mg SUBCUT BEDTIME [facility] Last Admin: 08/28/21 21:59 Dose: 80 mg Documented by: Famotidine (Famotidine 20 Mg Tab) 20 mg PO BID [facility] Last Admin: 08/27/21 16:57 Dose: Not Given Documented by: Guaifenesin/Codeine Phosphate (Codeine/Guaifenesin 10-100 Mg/5 Ml Syrup 5 Ml Cup) 5 ml PO Q6H [facility] Last Admin: 08/28/21 15:36 Dose: 5 ml Documented by: Remdesivir 200 mg/ Sodium (Chloride) 250 mls @ 250 mls/hr IV ONETIME ONE Stop: 08/25/21 18:53 Last Admin: 08/25/21 19:30 Dose: 250 mls/hr Documented by: Sodium Chloride (Normal Saline) 1,000 mls @ 75 mls/hr IV ONETIME ONE Stop: 08/26/21 08:14 Last Admin: 08/25/21 19:30 Dose: 75 mls/hr Documented by: Remdesivir 100 mg/ Sodium (Chloride) 100 mls @ 100 mls/hr IV Q24H [facility] Stop: 08/29/21 19:29 Last Admin: 08/26/21 17:39 Dose: 100 mls/hr Documented by: Sodium Chloride (Normal Saline) 100 mls @ 60 mls/hr IV ASDIRECTED [facility] Stop: 08/27/21 16:00 Last Admin: 08/27/21 12:32 Dose: 60 mls/hr Documented by: Influenza Virus Vaccine (Pharmacy To Dose - Influenza Vaccine) 1 each IM ONETIME ONE Stop: 08/26/21 18:21 Influenza Virus Vaccine (Flu Vacc Fj6998(65up)/Mf59c/Pf 60 Mcg/0.5 Ml Syringe) 60 mcg IM .ONCE ONE Stop: 08/26/21 18:31 Iopamidol (Iopamidol 755 Mg/Ml 100 Ml Bottle) 100 ml IVPUSH ONETIME ONE Stop: 08/27/21 12:04 Last Admin: 08/27/21 12:32 Dose: 100 ml Documented by: Polyethylene Glycol (Polyethylene Glycol 3350 Powder 17 Gm Packet) 17 gm PO ONETIME ONE Stop: 08/28/21 17:51 Last Admin: 08/28/21 18:52 Dose: 17 gm Documented by: Sodium Chloride (Sodium Chloride 0.9% 10 Ml Syringe) 10 ml FLUSH ONETIME ONE Stop: 08/27/21 12:04 Last Admin: 08/27/21 14:55 Dose: Not Given Documented by: - Exam Physical Findings Comments:: General: Alert, Oriented, Cooperative, No Acute Distress HEENT: Pupils Equal, Pupils Reactive, Mucous Membr. Moist/[place] Neck: Supple, Trachea Midline Lungs: Normal Respiratory Effort, Decreased Breath Sounds, Crackles Cardiovascular: Irregular Rhythm, Bradycardia GI/Abdominal Exam: Normal Bowel Sounds, Soft, Non-Tender, No Distention (Female) Exam: Deferred Back Exam: Normal Inspection, Full Range of Motion Extremities: Normal Inspection, Normal Range of Motion, Non-Tender, No Pedal Edema, Normal Capillary Refill Skin: Warm, Dry, Intact Neurological: No New Focal Deficit Psy/Mental Status: Alert, Normal Affect, Normal Mood - Patient Data Lab Results Last 24 hrs: Laboratory Results - last 24 hr 08/30/21 08/30/21 Range/Units 07:40 07:40 WBC 10.27 H (3.98-10.04) K/mm3 RBC 3.66 L (3.98-5.22) M/mm3 Hgb 11.5 (11.2-15.7) gm/dl Hct 35.6 (34.1-44.9) % MCV 97.3 H (79.4-94.8) fl MCH 31.4 (25.6-32.2) pg MCHC 32.3 (32.2-35.5) g/dl RDW Std Deviation 47.8 H (36.4-46.3) fL Plt Count 248 (182-369) K/mm3 MPV 9.7 (9.4-12.3) fl Neut % (Auto) 73.9 H (34.0-71.1) % Lymph % (Auto) 14.8 L (19.3-51.7) % [place] % (Auto) 7.3 (4.7-12.5) % Eos % (Auto) 0 L (0.7-5.8) Baso % (Auto) 0.2 (0.1-1.2) % Neut # (Auto) 7.59 H (1.56-6.13) K/mm3 Lymph # (Auto) 1.52 (1.18-3.74) K/mm3 [place] # (Auto) 0.75 H (0.24-0.36) K/mm3 Eos # (Auto) 0.00 L (0.04-0.36) K/mm3 Baso # (Auto) 0.02 (0.01-0.08) K/mm3 Manual Slide Review Normal smear Sodium 141 (136-145) mEq/L Potassium 4.2 (3.5-5.1) mEq/L Chloride 108 H (98-107) mEq/L Carbon Dioxide 25 (21-32) mEq/L Anion Gap 12.2 (5-15) BUN 34 H (7-18) mg/dL Creatinine 1.2 H (0.55-1.02) mg/dL Est Cr Clr Drug Dosing 30.93 mL/min Estimated GFR (MDRD) 43 (>60) mL/min BUN/Creatinine Ratio 28.3 H (14-18) Glucose 101 H (70-99) mg/dL Calcium 8.5 (8.5-10.1) mg/dL Magnesium 2.3 (1.8-2.4) mg/dL Total Bilirubin 0.4 (0.2-1.0) mg/dL AST 34 (15-37) U/L ALT 43 (14-59) U/L Alkaline Phosphatase 69 (46-116) U/L C-Reactive Protein 1.0 (<1.0) mg/dL Total Protein 6.5 (6.4-8.2) g/dl Albumin 2.7 L (3.4-5.0) g/dl Globulin 3.8 gm/dL Albumin/Globulin Ratio 0.7 L (1-2) Result Diagrams: 08/30/21 07:40 08/30/21 07:40 Sepsis Event Note - Evaluation Sepsis Screening Result: Sepsis Risk - Focused Exam Vital Signs: Vital Signs Temp Pulse Resp BP Pulse Ox Pulse Ox 08/30/21 11:53 94 L 08/30/21 11:49 36.6 C 08/30/21 11:43 68 102/54 L 95 08/30/21 11:39 88 22 H 96/52 L 95 08/30/21 09:57 98/60 08/30/21 09:00 68 20 93/56 L 88 L 08/30/21 08:33 91 L 08/30/21 04:40 36.7 C 71 97/53 L 08/30/21 04:00 24 H 88 L - Problem List Review Problem List Initiated/Reviewed/Updated: Yes - Assessment Assessment:: Admission assessment - 08/26/2021 * 81-year-old female presents to ED on 08/25/2021 accompanied by her son for weakness * History of Hypothyroidism, hypoparathyroidism, hypertension, obesity with a BMI of 31, breast cancer and subsequent mastectomy, history of lymphoma, and a smoker who quit many years ago * Reports she has been feeling poorly for a few weeks but symptoms have worsened over the weekend. * States no appetite and has been feeling very lethargic. Has been unable to get up and make herself food. * Denies fevers or chills but reports increased cough and shortness of breath. * Reportedly seen at the walk-in clinic a few days earlier and given a Z-Gavin. * She is not vaccinated for COVID-19. * Labs are obtained showing: * WBC of 7.12. * Hemoglobin 11.7. * Platelet 152,000. * Neutrophils are elevated 72.2%. * CRP is 8.7. * Sodium is 137. * Potassium 4.0. * Chloride 104. * Carbon dioxide 21. * Anion gap 16.0. * BUN is 26. Creatinine 1.5. GFR is 33. * Glucose is 113. * Calcium 7.8. * Magnesium 2.1. * Total bilirubin 0.4. * AST is 57, ALT 35, alkaline phosphatase is 81. * Protein is 7.3. * Albumin is 3.0. * SARS-CoV-2 RNA is positive. * Chest x-ray is obtained showing findings suspicious for moderate to severe changes of COVID-19 pneumonia and other incidental findings. * She is started on 75 mils of NS, given 6 mg IV push dexamethasone and 200 mg remdesivir. * She is held overnight in the ED and subsequent mated to the medical floor on telemetry for management of her hypoxia due to COVID-19 pneumonia. 08/27/2021 This is an 81-year-old female admitted to the floor for treatment of COVID-19 pneumonia. She is currently on 4 L of oxygen with saturations in the low 90s. She has been a bit bradycardic with heart rate in the 40s and 50s. Labs today show a WBC of 8.72. Hemoglobin is 11.2. Platelets 181,000. Neutrophils are 79.7%. D-dimer is elevated at 2.52. Sodium is 140. Potassium 4.6. Chloride 109. Carbon dioxide 18. Anion gap is 17.6. BUN is 44. Creatinine 1.4. GFR is 36. Glucose is 151. Magnesium is 2.2. Bilirubin 0.2. AST is 43, ALT 31, alkaline phosphatase 67. CRP is 5.9. Albumin is 2.7. Given her elevated D- dimer and after discussion with Dr. Benson, attending hospitalist we will order a CTA today to rule out PE. Continue treatment with dexamethasone and remdesivir. 08/28/2021 This is an 81-year-old female admitted to the floor for treatment of COVID-19 pneumonia. She was requiring 7 L of oxygen overnight and has been weaned down to 5 L with saturations in the upper 80s. Labs show a leukocytosis of 11.79, likely steroid related. Hemoglobin is 11.1. Platelets are 228,000. Neutrophils are 83.4. Sodium is 140. Potassium 4.8. Chloride 110. Carbon dioxide is 22. Anion gap is 12.8. BUN is 45. Creatinine 1.3. GFR is 39. Glucose 150. Calcium is 8.0. Magnesium 2.3. Total bilirubin 0.2. AST is 45, ALT 36, alkaline phosphatase 67. CRP is 2.5. Albumin is 2.7. TSH checked yesterday was 3.289. Unfortunately patient was having bradycardia and it is felt this was due to remdesivir. Remdesivir was therefore stopped. Her bradycardia has improved with a heart rate now in the 40s and 50s. We will continue current treatment plan. 08/29/2021 This is an 81-year-old female admitted to the floor for treatment of her COVID- 19 pneumonia. She was started on remdesivir and dexamethasone and once on the floor was noted to be bradycardic so remdesivir was stopped. Yesterday she beg an having new onset atrial fibrillation which was EKG confirmed. TSH has been checked the day earlier and was on the high end of normal at 3.289. She was started on 1 mg/kg of Lovenox twice daily and will be transition to 5 mg Eliquis twice daily today. Echocardiogram is ordered and pending. Her oxygen demand is improving and she is on 3 L currently via nasal cannula. Overall she says she feels terrible and has generalized myalgias and weakness. White count today is slightly elevated at 10.30. This is likely steroid related. Platelets are 246,000. D-dimer is down to 1.08. Sodium 142. Potassium 4.4. Carbon dioxide 20. Anion gap is 16.4. BUN is 41. Creatinine 1.3. GFR is up to 39. Magnesium is 2.4. CRP is down to 1.1. Albumin is 2.7. She will remain hospitalized pending continued improvement. 08/29/2021 Patient is feeling fine. Does not have any new complaints. Denies fever, chills, nausea or vomiting. She is on 2 to 3 L Blood pressure was a soft of this morning. It is improving this afternoon Creatinine 1.2, GFR 43 CRP 1.0 - Plan Plan:: Pneumonia due to COVID-19 virus Hypoxia Former smoker Elevated D-Dimer * O2 as needed to keep saturations 88-95% * Telemetry * Continuous pulse oximetry * PT/OT * CM/SW * Remdesivir - Discontinued due to bradycardia * Dexamethasone - day 02/22 * Xarelto 15mg daily * RT consultation * PRN albuterol MDI * PRN Duonebs * IS * Famotidine 20mg BID * Zinc supplementation * Daily labs * Check D-Dimer Q48 hours * Airborne/contact precautions New onset A-fib * Telemetry * rate is controlled * Xarelto 15mg daily * Echocardiogram ordered [place], improving * Acute on chronic * Creatinine on prior labs of 1.15, BUN 23, GFR 46. * Monitor daily labs * Avoid nephrotoxic meds Hypertension * No acute concerns * Hold home Cozaar for now due to hypotension Hypoparathyroidism Hypothyroidism * No acute concerns * Continue home levothyroxine Obesity * No acute concerns * Consider manager council consultation History of breast cancer History of lymphoma S/P mastectomy * No acute concerns Thyoid nodule * f/u with pcp Code status: CPR only PCP: Dr. Arreguin DVT prophylaxis: Xarelto 15mg daily Social: Patient lives alone locally and has a son who helps Disposition: Patient admitted to floor for management of COVID-19 PNA. May be able to release from hospital in 1-2 more days. Pt needs pcp, cardiology and nephrology
[2021-08-30] MEDS ORDERED: Bisacodyl 10 MG Supp RECTAL ONE (16:35)
[2021-08-30] MEDS: Rivaroxaban 15 MG Tab PO SCH (17:04)
[2021-08-30] MEDS: Temazepam 7.5 MG Cap PO PRN (20:59)
[2021-08-30] MEDS: Famotidine 20 MG Tab PO SCH (20:59)
[2021-08-31] MEDS: Codeine/guaiFENesin 10-100 MG/5 ML Syrup 5 ML Cup PO SCH ×5 (08:02→21:36)
[2021-08-31] MEDS: Zinc Sulfate 220 MG Cap PO SCH (08:22)
[2021-08-31] MEDS: Citalopram 20 MG Tab PO SCH (08:22)
[2021-08-31] MEDS: Levothyroxine 100 MCG Tab PO SCH (08:22)
[2021-08-31] MEDS: Dexamethasone 4 MG Tab PO SCH (08:23)
--- NOTE | 2021-08-31 13:40 | CR ---
Chest: Frontal view of the chest was obtained. Comparison: Prior chest CT study of 08/27/21 and chest x-ray of 08/25/21. Scattered parenchymal densities are seen on both sides of the chest. Findings are felt to be fairly stable from prior studies. Heart size appears within normal limits. Tortuous thoracic aorta is seen. Bony structures show nothing acute. Impression: 1. Stable chest x-ray from previous exams. No change within COVID pneumonia is seen. Diagnostic code #3
[2021-08-31] MEDS: Albuterol/Ipratropium 3.0-0.5 MG/3 ML Neb Soln NEB PRN (14:11)
--- NOTE | 2021-08-31 16:19 | PCM.PN ---
- General Info Date of Service: 08/31/21 Admission Dx/Problem (Free Text): Admission Diagnosis/Problem Admission Diagnosis/Problem Hypoxia Subjective Update: Today patient is a feeling very tired and he does not have any energy. He also complains of mild chest pain which is worsened by deep breath. He otherwise denies fever, chills, abdominal pain or diarrhea. He is on 1 to 2 L D-dimer 1.33 Troponin less than 0.017 Creatinine 1.1, GFR 48 - Review of Systems Systems Review Comment:: Positive for chest pain and fatigue. All other systems were reviewed and negative. - Patient Data Vitals - Most Recent: Last Vital Signs Temp 36.9 C 08/31/21 12:59 Pulse 72 08/31/21 12:59 Resp 20 08/31/21 12:59 BP 110/82 08/31/21 12:59 Pulse Ox 92 L 08/31/21 14:11 Weight - Most Recent: 79.515 kg I&O - Last 24 Hours: Intake & Output 08/31/21 08/31/21 08/31/21 06:59 14:59 22:59 Intake Total 0 60 Output Total 1050 Balance -1050 0 60 Lab Results Last 24 Hours: Laboratory Results - last 24 hr 08/31/21 08/31/21 08/31/21 Range/Units 06:20 06:20 06:20 WBC 8.67 (3.98-10.04) K/mm3 RBC 3.78 L (3.98-5.22) M/mm3 Hgb 12.0 (11.2-15.7) gm/dl Hct 36.8 (34.1-44.9) % MCV 97.4 H (79.4-94.8) fl MCH 31.7 (25.6-32.2) pg MCHC 32.6 (32.2-35.5) g/dl RDW Std Deviation 47.7 H (36.4-46.3) fL Plt Count 274 (182-369) K/mm3 MPV 9.7 (9.4-12.3) fl Neut % (Auto) 66.6 (34.0-71.1) % Lymph % (Auto) 18.9 L (19.3-51.7) % Ness % (Auto) 8.8 (4.7-12.5) % Eos % (Auto) 0 L (0.7-5.8) Baso % (Auto) 0.3 (0.1-1.2) % Neut # (Auto) 5.77 (1.56-6.13) K/mm3 Lymph # (Auto) 1.64 (1.18-3.74) K/mm3 Ness # (Auto) 0.76 H (0.24-0.36) K/mm3 Eos # (Auto) 0.00 L (0.04-0.36) K/mm3 Baso # (Auto) 0.03 (0.01-0.08) K/mm3 Manual Slide Review Abnormal smear D-Dimer, Quantitative 1.33 H (0.19-0.50) mg/L Sodium 140 (136-145) mEq/L Potassium 4.2 (3.5-5.1) mEq/L Chloride 104 (98-107) mEq/L Carbon Dioxide 22 (21-32) mEq/L Anion Gap 18.2 H (5-15) BUN 31 H (7-18) mg/dL Creatinine 1.1 H (0.55-1.02) mg/dL Est Cr Clr Drug Dosing 33.74 mL/min Estimated GFR (MDRD) 48 (>60) mL/min BUN/Creatinine Ratio 28.2 H (14-18) Glucose 104 H (70-99) mg/dL Calcium 8.7 (8.5-10.1) mg/dL Total Bilirubin 0.5 (0.2-1.0) mg/dL AST 34 (15-37) U/L ALT 42 (14-59) U/L Alkaline Phosphatase 69 (46-116) U/L Troponin I (0.00-0.056) ng/mL Total Protein 6.8 (6.4-8.2) g/dl Albumin 2.9 L (3.4-5.0) g/dl Globulin 3.9 gm/dL Albumin/Globulin Ratio 0.7 L (1-2) 08/31/ Range/Units 13:27 WBC (3.98-10.04) K/mm3 RBC (3.98-5.22) M/mm3 Hgb (11.2-15.7) gm/dl Hct (34.1-44.9) % MCV (79.4-94.8) fl MCH (25.6-32.2) pg MCHC (32.2-35.5) g/dl RDW Std Deviation (36.4-46.3) fL Plt Count (182-369) K/mm3 MPV (9.4-12.3) fl Neut % (Auto) (34.0-71.1) % Lymph % (Auto) (19.3-51.7) % Ness % (Auto) (4.7-12.5) % Eos % (Auto) (0.7-5.8) Baso % (Auto) (0.1-1.2) % Neut # (Auto) (1.56-6.13) K/mm3 Lymph # (Auto) (1.18-3.74) K/mm3 Ness # (Auto) (0.24-0.36) K/mm3 Eos # (Auto) (0.04-0.36) K/mm3 Baso # (Auto) (0.01-0.08) K/mm3 Manual Slide Review D-Dimer, Quantitative (0.19-0.50) mg/L Sodium (136-145) mEq/L Potassium (3.5-5.1) mEq/L Chloride (98-107) mEq/L Carbon Dioxide (21-32) mEq/L Anion Gap (5-15) BUN (7-18) mg/dL Creatinine (0.55-1.02) mg/dL Est Cr Clr Drug Dosing mL/min Estimated GFR (MDRD) (>60) mL/min BUN/Creatinine Ratio (14-18) Glucose (70-99) mg/dL Calcium (8.5-10.1) mg/dL Total Bilirubin (0.2-1.0) mg/dL AST (15-37) U/L ALT (14-59) U/L Alkaline Phosphatase (46-116) U/L Troponin I < 0.017 (0.00-0.056) ng/mL Total Protein (6.4-8.2) g/dl Albumin (3.4-5.0) g/dl Globulin gm/dL Albumin/Globulin Ratio (1-2) Med Orders - Current: Current Medications Acetaminophen (Acetaminophen 325 Mg Tab) 650 mg PO Q4H PRN PRN Reason: Pain (Mild 1-3)/fever Last Admin: 08/30/21 10:05 Dose: 650 mg Documented by: Albuterol (Albuterol 6.7 Gm Inhaler) 0 gm INH Q2H PRN PRN Reason: Shortness of Breath Albuterol/Ipratropium (Albuterol/Ipratropium 3.0-0.5 Mg/3 Ml Neb Soln) 3 ml NEB QIDRT PRN PRN Reason: Shortness Of Breath/wheezing Last Admin: 08/31/21 14:11 Dose: 3 ml Documented by: Citalopram Hydrobromide (Citalopram 20 Mg Tab) 20 mg PO DAILY [facility] Last Admin: 08/31/21 08:22 Dose: 20 mg Documented by: Dexamethasone (Dexamethasone 4 Mg Tab) 6 mg PO DAILY [facility] Stop: 09/03/21 09:01 Last Admin: 08/31/21 08:23 Dose: 6 mg Documented by: Famotidine (Famotidine 20 Mg Tab) 20 mg PO BEDTIME [facility] Last Admin: 08/30/21 20:59 Dose: 20 mg Documented by: Guaifenesin/Codeine Phosphate (Codeine/Guaifenesin 10-100 Mg/5 Ml Syrup 5 Ml Cup) 5 ml PO Q6H [facility] Last Admin: 08/31/21 11:46 Dose: Not Given Documented by: Levothyroxine Sodium (Levothyroxine 100 Mcg Tab) 100 mcg PO DAILY [facility] Last Admin: 08/31/21 08:22 Dose: 100 mcg Documented by: Ondansetron HCl (Ondansetron 4 Mg/2 Ml Sdv) 4 mg IV Q6H PRN PRN Reason: Nausea/Vomiting Last Admin: 08/26/21 17:45 Dose: 4 mg Documented by: Rivaroxaban (Rivaroxaban 15 Mg Tab) 15 mg PO WITHDINNER [facility] Last Admin: 08/30/21 17:04 Dose: 15 mg Documented by: Senna/Docusate Sodium (Docusate Sodium/Sennosides 50-8.6 Mg Tab) 1 tab PO BID P RN PRN Reason: Constipation Last Admin: 08/30/21 20:59 Dose: 1 tab Documented by: Sodium Chloride (Sodium Chloride 0.9% 10 Ml Syringe) 10 ml FLUSH ASDIRECTED PRN PRN Reason: Keep Vein Open Last Admin: 08/25/21 17:07 Dose: 10 ml Documented by: Temazepam (Temazepam 7.5 Mg Cap) 7.5 mg PO BEDTIME PRN PRN Reason: Insomnia Last Admin: 08/30/21 20:59 Dose: 7.5 mg Documented by: Zinc Sulfate (Zinc Sulfate 220 Mg Cap) 220 mg PO DAILY [facility] Last Admin: 08/31/21 08:22 Dose: 220 mg Documented by: Discontinued Medications Apixaban (Apixaban 5 Mg Tab) 5 mg PO BID [facility] Last Admin: 08/29/21 09:51 Dose: 5 mg Documented by: Bisacodyl (Bisacodyl 10 Mg Supp) 10 mg RECTAL ONETIME ONE Stop: 08/30/21 16:36 Last Admin: 08/30/21 17:04 Dose: 10 mg Documented by: Dexamethasone (Dexamethasone 10 Mg/Ml Sdv) 6 mg IVPUSH ONETIME ONE Stop: 08/25/21 18:53 Last Admin: 08/25/21 19:30 Dose: 6 mg Documented by: Enoxaparin Sodium (Enoxaparin 40 Mg/0.4 Ml Syringe) 40 mg SUBCUT DAILY [facility] Last Admin: 08/28/21 08:44 Dose: 40 mg Documented by: Enoxaparin Sodium (Enoxaparin 80 Mg/0.8 Ml Syringe) 80 mg SUBCUT BEDTIME [facility] Last Admin: 08/28/21 21:59 Dose: 80 mg Documented by: Famotidine (Famotidine 20 Mg Tab) 20 mg PO BID [facility] Last Admin: 08/27/21 16:57 Dose: Not Given Documented by: Guaifenesin/Codeine Phosphate (Codeine/Guaifenesin 10-100 Mg/5 Ml Syrup 5 Ml Cup) 5 ml PO Q6H [facility] Last Admin: 08/28/21 15:36 Dose: 5 ml Documented by: Remdesivir 200 mg/ Sodium (Chloride) 250 mls @ 250 mls/hr IV ONETIME ONE Stop: 08/25/21 18:53 Last Admin: 08/25/21 19:30 Dose: 250 mls/hr Documented by: Sodium Chloride (Normal Saline) 1,000 mls @ 75 mls/hr IV ONETIME ONE Stop: 08/26/21 08:14 Last Admin: 08/25/21 19:30 Dose: 75 mls/hr Documented by: Remdesivir 100 mg/ Sodium (Chloride) 100 mls @ 100 mls/hr IV Q24H SHAN Stop: 08/29/21 19:29 Last Admin: 08/26/21 17:39 Dose: 100 mls/hr Documented by: Sodium Chloride (Normal Saline) 100 mls @ 60 mls/hr IV ASDIRECTED SHAN Stop: 08/27/21 16:00 Last Admin: 08/27/21 12:32 Dose: 60 mls/hr Documented by: Influenza Virus Vaccine (Pharmacy To Dose - Influenza Vaccine) 1 each IM ONETIME ONE Stop: 08/26/21 18:21 Influenza Virus Vaccine (Flu Vacc Yp2425(65up)/Mf59c/Pf 60 Mcg/0.5 Ml Syringe) 60 mcg IM .ONCE ONE Stop: 08/26/21 18:31 Iopamidol (Iopamidol 755 Mg/Ml 100 Ml Bottle) 100 ml IVPUSH ONETIME ONE Stop: 08/27/21 12:04 Last Admin: 08/27/21 12:32 Dose: 100 ml Documented by: Polyethylene Glycol (Polyethylene Glycol 3350 Powder 17 Gm Packet) 17 gm PO ONETIME ONE Stop: 08/28/21 17:51 Last Admin: 08/28/21 18:52 Dose: 17 gm Documented by: Sodium Chloride (Sodium Chloride 0.9% 10 Ml Syringe) 10 ml FLUSH ONETIME ONE Stop: 08/27/21 12:04 Last Admin: 08/27/21 14:55 Dose: Not Given Documented by: - Exam Physical Findings Comments:: General: Alert, Oriented, Cooperative, No Acute Distress HEENT: Pupils Equal, Pupils Reactive, Mucous Membr. Moist/[place] Neck: Supple, Trachea Midline Lungs: Normal Respiratory Effort, Decreased Breath Sounds, Cardiovascular: Irregular Rhythm, Bradycardia GI/Abdominal Exam: Normal Bowel Sounds, Soft, Non-Tender, No Distention (Female) Exam: Deferred Back Exam: Normal Inspection, Full Range of Motion Extremities: Normal Inspection, Normal Range of Motion, Non-Tender, No Pedal Edema, Normal Capillary Refill Skin: Warm, Dry, Intact Neurological: No New Focal Deficit Psy/Mental Status: Alert, Normal Affect, Normal Mood - Patient Data Lab Results Last 24 hrs: Laboratory Results - last 24 hr 08/31/21 08/31/21 08/31/21 Range/Units 06:20 06:20 06:20 WBC 8.67 (3.98-10.04) K/mm3 RBC 3.78 L (3.98-5.22) M/mm3 Hgb 12.0 (11.2-15.7) gm/dl Hct 36.8 (34.1-44.9) % MCV 97.4 H (79.4-94.8) fl MCH 31.7 (25.6-32.2) pg MCHC 32.6 (32.2-35.5) g/dl RDW Std Deviation 47.7 H (36.4-46.3) fL Plt Count 274 (182-369) K/mm3 MPV 9.7 (9.4-12.3) fl Neut % (Auto) 66.6 (34.0-71.1) % Lymph % (Auto) 18.9 L (19.3-51.7) % Ness % (Auto) 8.8 (4.7-12.5) % Eos % (Auto) 0 L (0.7-5.8) Baso % (Auto) 0.3 (0.1-1.2) % Neut # (Auto) 5.77 (1.56-6.13) K/mm3 Lymph # (Auto) 1.64 (1.18-3.74) K/mm3 Ness # (Auto) 0.76 H (0.24-0.36) K/mm3 Eos # (Auto) 0.00 L (0.04-0.36) K/mm3 Baso # (Auto) 0.03 (0.01-0.08) K/mm3 Manual Slide Review Abnormal smear D-Dimer, Quantitative 1.33 H (0.19-0.50) mg/L Sodium 140 (136-145) mEq/L Potassium 4.2 (3.5-5.1) mEq/L Chloride 104 (98-107) mEq/L Carbon Dioxide 22 (21-32) mEq/L Anion Gap 18.2 H (5-15) BUN 31 H (7-18) mg/dL Creatinine 1.1 H (0.55-1.02) mg/dL Est Cr Clr Drug Dosing 33.74 mL/min Estimated GFR (MDRD) 48 (>60) mL/min BUN/Creatinine Ratio 28.2 H (14-18) Glucose 104 H (70-99) mg/dL Calcium 8.7 (8.5-10.1) mg/dL Total Bilirubin 0.5 (0.2-1.0) mg/dL AST 34 (15-37) U/L ALT 42 (14-59) U/L Alkaline Phosphatase 69 (46-116) U/L Troponin I (0.00-0.056) ng/mL Total Protein 6.8 (6.4-8.2) g/dl Albumin 2.9 L (3.4-5.0) g/dl Globulin 3.9 gm/dL Albumin/Globulin Ratio 0.7 L (1-2) 08/31/21 Range/Units 13:27 WBC (3.98-10.04) K/mm3 RBC (3.98-5.22) M/mm3 Hgb (11.2-15.7) gm/dl Hct (34.1-44.9) % MCV (79.4-94.8) fl MCH (25.6-32.2) pg MCHC (32.2-35.5) g/dl RDW Std Deviation (36.4-46.3) fL Plt Count (182-369) K/mm3 MPV (9.4-12.3) fl Neut % (Auto) (34.0-71.1) % Lymph % (Auto) (19.3-51.7) % Ness % (Auto) (4.7-12.5) % Eos % (Auto) (0.7-5.8) Baso % (Auto) (0.1-1.2) % Neut # (Auto) (1.56-6.13) K/mm3 Lymph # (Auto) (1.18-3.74) K/mm3 Ness # (Auto) (0.24-0.36) K/mm3 Eos # (Auto) (0.04-0.36) K/mm3 Baso # (Auto) (0.01-0.08) K/mm3 Manual Slide Review D-Dimer, Quantitative (0.19-0.50) mg/L Sodium (136-145) mEq/L Potassium (3.5-5.1) mEq/L Chloride (98-107) mEq/L Carbon Dioxide (21-32) mEq/L Anion Gap (5-15) BUN (7-18) mg/dL Creatinine (0.55-1.02) mg/dL Est Cr Clr Drug Dosing mL/min Estimated GFR (MDRD) (>60) mL/min BUN/Creatinine Ratio (14-18) Glucose (70-99) mg/dL Calcium (8.5-10.1) mg/dL Total Bilirubin (0.2-1.0) mg/dL AST (15-37) U/L ALT (14-59) U/L Alkaline Phosphatase (46-116) U/L Troponin I < 0.017 (0.00-0.056) ng/mL Total Protein (6.4-8.2) g/dl Albumin (3.4-5.0) g/dl Globulin gm/dL Albumin/Globulin Ratio (1-2) Result Diagrams: 08/31/21 06:20 08/31/21 06:20 Sepsis Event Note - Evaluation Sepsis Screening Result: No Definite Risk - Focused Exam Vital Signs: Vital Signs Temp Pulse Resp BP Pulse Ox Pulse Ox 08/31/21 14:11 92 L 08/31/21 12:59 36.9 C 72 20 110/82 92 L 08/31/21 08:20 36.7 C 70 20 108/74 91 L 08/31/21 07:56 36.8 C 73 18 109/67 90 L - Problem List Review Problem List Initiated/Reviewed/Updated: Yes - My Orders Last 24 Hours: My Active Orders 08/31/21 09:19 Evaluate for Home Oxygen [RT Oxygen Therapy w/Exercise] [RC] ASDIRECTED 09/01/21 05:00 CBC WITH AUTO DIFF [HEME] DAILY COMPREHENSIVE METABOLIC PN,CMP [CHEM] DAILY 09/02/21 05:00 CBC WITH AUTO DIFF [HEME] DAILY COMPREHENSIVE METABOLIC PN,CMP [CHEM] DAILY 09/03/21 05:00 CBC WITH AUTO DIFF [HEME] DAILY COMPREHENSIVE METABOLIC PN,CMP [CHEM] DAILY 09/04/21 05:00 CBC WITH AUTO DIFF [HEME] DAILY COMPREHENSIVE METABOLIC PN,CMP [CHEM] DAILY 09/05/21 05:00 CBC WITH AUTO DIFF [HEME] DAILY COMPREHENSIVE METABOLIC PN,CMP [CHEM] DAILY - Assessment Assessment:: Admission assessment - 08/26/2021 * 81-year-old female presents to ED on 08/25/2021 accompanied by her son for weakness * History of Hypothyroidism, hypoparathyroidism, hypertension, obesity with a BMI of 31, breast cancer and subsequent mastectomy, history of lymphoma, and a smoker who quit many years ago * Reports she has been feeling poorly for a few weeks but symptoms have worsened over the weekend. * States no appetite and has been feeling very lethargic. Has been unable to get up and make herself food. * Denies fevers or chills but reports increased cough and shortness of breath. * Reportedly seen at the walk-in clinic a few days earlier and given a Z-Gavin. * She is not vaccinated for COVID-19. * Labs are obtained showing: * WBC of 7.12. * Hemoglobin 11.7. * Platelet 152,000. * Neutrophils are elevated 72.2%. * CRP is 8.7. * Sodium is 137. * Potassium 4.0. * Chloride 104. * Carbon dioxide 21. * Anion gap 16.0. * BUN is 26. Creatinine 1.5. GFR is 33. * Glucose is 113. * Calcium 7.8. * Magnesium 2.1. * Total bilirubin 0.4. * AST is 57, ALT 35, alkaline phosphatase is 81. * Protein is 7.3. * Albumin is 3.0. * SARS-CoV-2 RNA is positive. * Chest x-ray is obtained showing findings suspicious for moderate to severe changes of COVID-19 pneumonia and other incidental findings. * She is started on 75 mils of NS, given 6 mg IV push dexamethasone and 200 mg remdesivir. * She is held overnight in the ED and subsequent mated to the medical floor on telemetry for management of her hypoxia due to COVID-19 pneumonia. 08/27/2021 This is an 81-year-old female admitted to the floor for treatment of COVID-19 pneumonia. She is currently on 4 L of oxygen with saturations in the low 90s. She has been a bit bradycardic with heart rate in the 40s and 50s. Labs today show a WBC of 8.72. Hemoglobin is 11.2. Platelets 181,000. Neutrophils are 79.7%. D-dimer is elevated at 2.52. Sodium is 140. Potassium 4.6. Chloride 109. Carbon dioxide 18. Anion gap is 17.6. BUN is 44. Creatinine 1.4. GFR is 36. Glucose is 151. Magnesium is 2.2. Bilirubin 0.2. AST is 43, ALT 31, alkaline phosphatase 67. CRP is 5.9. Albumin is 2.7. Given her elevated D- dimer and after discussion with Dr. Benson, attending hospitalist we will order a CTA today to rule out PE. Continue treatment with dexamethasone and remdesivir. 08/28/2021 This is an 81-year-old female admitted to the floor for treatment of COVID-19 pneumonia. She was requiring 7 L of oxygen overnight and has been weaned down to 5 L with saturations in the upper 80s. Labs show a leukocytosis of 11.79, likely steroid related. Hemoglobin is 11.1. Platelets are 228,000. Neutrophils are 83.4. Sodium is 140. Potassium 4.8. Chloride 110. Carbon dioxide is 22. Anion gap is 12.8. BUN is 45. Creatinine 1.3. GFR is 39. Glucose 150. Calcium is 8.0. Magnesium 2.3. Total bilirubin 0.2. AST is 45, ALT 36, alkaline phosphatase 67. CRP is 2.5. Albumin is 2.7. TSH checked yesterday was 3.289. Unfortunately patient was having bradycardia and it is felt this was due to remdesivir. Remdesivir was therefore stopped. Her bradycardia has improved with a heart rate now in the 40s and 50s. We will continue current treatment plan. 08/29/2021 This is an 81-year-old female admitted to the floor for treatment of her COVID- 19 pneumonia. She was started on remdesivir and dexamethasone and once on the floor was noted to be bradycardic so remdesivir was stopped. Yesterday she began having new onset atrial fibrillation which was EKG confirmed. TSH has been checked the day earlier and was on the high end of normal at 3.289. She was started on 1 mg/kg of Lovenox twice daily and will be transition to 5 mg Eliquis twice daily today. Echocardiogram is ordered and pending. Her oxygen demand is improving and she is on 3 L currently via nasal cannula. Overall she says she feels terrible and has generalized myalgias and weakness. White count today is slightly elevated at 10.30. This is likely steroid related. Platelets are 246,000. D-dimer is down to 1.08. Sodium 142. Potassium 4.4. Carbon dioxide 20. Anion gap is 16.4. BUN is 41. Creatinine 1.3. GFR is up to 39. Magnesium is 2.4. CRP is down to 1.1. Albumin is 2.7. She will remain ho spitalized pending continued improvement. 08/30/2021 Patient is feeling fine. Does not have any new complaints. Denies fever, chills, nausea or vomiting. She is on 2 to 3 L Blood pressure was a soft of this morning. It is improving this afternoon Creatinine 1.2, GFR 43 CRP 1.0 08/31/2021 Today patient is a feeling very tired and he does not have any energy. He also complains of mild chest pain which is worsened by taking deep breath. He ot herwise denies fever, chills, abdominal pain or diarrhea. He is on 1 to 2 L D-dimer 1.33 Troponin less than 0.017 Creatinine 1.1, GFR 48 - Plan Plan:: Pneumonia due to COVID-19 virus Hypoxia Former smoker Elevated D-Dimer * O2 as needed to keep saturations 88-95% * Telemetry * Continuous pulse oximetry * PT/OT * CM/SW * Remdesivir - Discontinued due to bradycardia * Dexamethasone - day 04/24 * Xarelto 15mg daily * RT consultation * PRN albuterol MDI * PRN Duonebs * IS * Famotidine 20mg BID * Zinc supplementation * Daily labs * Check D-Dimer Q48 hours * Airborne/contact precautions New onset A-fib * Telemetry * Not on any HR control meds but rate is controlled * Xarelto 15mg daily * Echocardiogram ordered [place], improving * Acute on chronic * Creatinine on prior labs of 1.15, BUN 23, GFR 46. * Monitor daily labs * Creatinine is trending down * Avoid nephrotoxic meds Hypertension * No acute concerns * Hold home Cozaar for now due to hypotension Hypoparathyroidism Hypothyroidism * No acute concerns * Continue home levothyroxine Obesity * No acute concerns * Consider customer service sales associate consultation History of breast cancer History of lymphoma S/P mastectomy * No acute concerns Thyoid nodule * f/u with pcp Code status: CPR only PCP: Dr. Arreguin DVT prophylaxis: Xarelto 15mg daily Social: Patient lives alone locally and has a son who helps Disposition: Patient admitted to floor for management of COVID-19 PNA. May be able to release from hospital in 1-2 more days. Discharge barrier: fatigue, weakness Recommendation from PT OT Home oxygen eval was ordered Pt needs pcp, cardiology and nephrology
[2021-08-31] MEDS: Rivaroxaban 15 MG Tab PO SCH (16:29)
[2021-08-31] MEDS: Famotidine 20 MG Tab PO SCH (21:36)
[2021-09-01] MEDS: Codeine/guaiFENesin 10-100 MG/5 ML Syrup 5 ML Cup PO SCH ×4 (03:31→21:42)
[2021-09-01] MEDS: Levothyroxine 100 MCG Tab PO SCH (10:09)
[2021-09-01] MEDS: Citalopram 20 MG Tab PO SCH (10:09)
[2021-09-01] MEDS: Zinc Sulfate 220 MG Cap PO SCH (10:09)
[2021-09-01] MEDS: Dexamethasone 4 MG Tab PO SCH (10:09)
[2021-09-01] MEDS: Ondansetron 4 MG/2 ML SDV IV PRN (13:05)
--- NOTE | 2021-09-01 13:33 | PCM.PN ---
- General Info Date of Service: 09/01/21 Admission Dx/Problem (Free Text): Admission Diagnosis/Problem Admission Diagnosis/Problem Hypoxia Subjective Update: Alix was seen on rounds this morning. She states her breathing does feel better. She denies cough. She states her appetite is getting better. Functional Status: Reports: Pain Controlled, Tolerating Diet, Ambulating (With PT), Urinating - Review of Systems General: Reports: No Symptoms HEENT: Reports: No Symptoms Pulmonary: Reports: Cough (Occasional) Cardiovascular: Reports: No Symptoms Gastrointestinal: Reports: No Symptoms Genitourinary: Reports: No Symptoms Musculoskeletal: Reports: No Symptoms Skin: Reports: No Symptoms Neurological: Reports: No Symptoms Psychiatric: Reports: No Symptoms - Patient Data Vitals - Most Recent: Last Vital Signs Temp 97.3 F 09/01/21 10:03 Pulse 92 09/01/21 10:03 Resp 22 H 09/01/21 10:03 BP 102/65 09/01/21 10:03 Pulse Ox 91 L 09/01/21 10:03 Weight - Most Recent: 176 lb 9.6 oz I&O - Last 24 Hours: Intake & Output 08/31/21 09/01/21 09/01/21 22:59 06:59 14:59 Intake Total 660 600 90 Output Total 300 850 Balance 360 -250 90 Lab Results Last 24 Hours: Laboratory Results - last 24 hr 08/31/21 09/01/21 09/01/21 Range/Units 13:27 06:03 06:03 WBC 9.52 (3.98-10.04) K/mm3 RBC 3.79 L (3.98-5.22) M/mm3 Hgb 11.9 (11.2-15.7) gm/dl Hct 36.7 (34.1-44.9) % MCV 96.8 H (79.4-94.8) fl MCH 31.4 (25.6-32.2) pg MCHC 32.4 (32.2-35.5) g/dl RDW Std Deviation 46.4 H (36.4-46.3) fL Plt Count 257 (182-369) K/mm3 MPV 9.8 (9.4-12.3) fl Neut % (Auto) 67.4 (34.0-71.1) % Lymph % (Auto) 19.2 L (19.3-51.7) % [place] % (Auto) 8.7 (4.7-12.5) % Eos % (Auto) 0.4 L (0.7-5.8) Baso % (Auto) 0.2 (0.1-1.2) % Neut # (Auto) 6.41 H (1.56-6.13) K/mm3 Lymph # (Auto) 1.83 (1.18-3.74) K/mm3 [place] # (Auto) 0.83 H (0.24-0.36) K/mm3 Eos # (Auto) 0.04 (0.04-0.36) K/mm3 Baso # (Auto) 0.02 (0.01-0.08) K/mm3 Manual Slide Review Abnormal smear Sodium 139 (136-145) mEq/L Potassium 3.8 (3.5-5.1) mEq/L Chloride 105 (98-107) mEq/L Carbon Dioxide 23 (21-32) mEq/L Anion Gap 14.8 (5-15) BUN 27 H (7-18) mg/dL Creatinine 1.2 H (0.55-1.02) mg/dL Est Cr Clr Drug Dosing 30.93 mL/min Estimated GFR (MDRD) 43 (>60) mL/min BUN/Creatinine Ratio 22.5 H (14-18) Glucose 88 (70-99) mg/dL Calcium 8.6 (8.5-10.1) mg/dL Total Bilirubin 0.5 (0.2-1.0) mg/dL AST 33 (15-37) U/L ALT 46 (14-59) U/L Alkaline Phosphatase 70 (46-116) U/L Troponin I < 0.017 (0.00-0.056) ng/mL C-Reactive Protein 0.6 (<1.0) mg/dL Total Protein 6.5 (6.4-8.2) g/dl Albumin 2.8 L (3.4-5.0) g/dl Globulin 3.7 gm/dL Albumin/Globulin Ratio 0.8 L (1-2) Med Orders - Current: Current Medications Acetaminophen (Acetaminophen 325 Mg Tab) 650 mg PO Q4H PRN PRN Reason: Pain (Mild 1-3)/fever Last Admin: 08/30/21 10:05 Dose: 650 mg Documented by: Albuterol (Albuterol 6.7 Gm Inhaler) 0 gm INH Q2H PRN PRN Reason: Shortness of Breath Albuterol/Ipratropium (Albuterol/Ipratropium 3.0-0.5 Mg/3 Ml Neb Soln) 3 ml NEB QIDRT PRN PRN Reason: Shortness Of Breath/wheezing Last Admin: 08/31/21 14:11 Dose: 3 ml Documented by: Citalopram Hydrobromide (Citalopram 20 Mg Tab) 20 mg PO DAILY [facility] Last Admin: 09/01/21 10:09 Dose: 20 mg Documented by: Dexamethasone (Dexamethasone 4 Mg Tab) 6 mg PO DAILY [facility] Stop: 09/03/21 09:01 Last Admin: 09/01/21 10:09 Dose: 6 mg Documented by: Famotidine (Famotidine 20 Mg Tab) 20 mg PO BEDTIME [facility] Last Admin: 08/31/21 21:36 Dose: 20 mg Documented by: Guaifenesin/Codeine Phosphate (Codeine/Guaifenesin 10-100 Mg/5 Ml Syrup 5 Ml Cup) 5 ml PO Q6H [facility] Last Admin: 09/01/21 10:19 Dose: 5 ml Documented by: Levothyroxine Sodium (Levothyroxine 100 Mcg Tab) 100 mcg PO DAILY [facility] Last Admin: 09/01/21 10:09 Dose: 100 mcg Documented by: Ondansetron HCl (Ondansetron 4 Mg/2 Ml Sdv) 4 mg IV Q6H PRN PRN Reason: Nausea/Vomiting Last Admin: 09/01/21 13:05 Dose: 4 mg Documented by: Rivaroxaban (Rivaroxaban 15 Mg Tab) 15 mg PO WITHDINNER [facility] Last Admin: 08/31/21 16:29 Dose: 15 mg Documented by: Senna/Docusate Sodium (Docusate Sodium/Sennosides 50-8.6 Mg Tab) 1 tab PO BID PRN PRN Reason: Constipation Last Admin: 08/30/21 20:59 Dose: 1 tab Documented by: Sodium Chloride (Sodium Chloride 0.9% 10 Ml Syringe) 10 ml FLUSH ASDIRECTED PRN PRN Reason: Keep Vein Open Last Admin: 08/25/21 17:07 Dose: 10 ml Documented by: Temazepam (Temazepam 7.5 Mg Cap) 7.5 mg PO BEDTIME PRN PRN Reason: Insomnia Last Admin: 08/30/21 20:59 Dose: 7.5 mg Documented by: Zinc Sulfate (Zinc Sulfate 220 Mg Cap) 220 mg PO DAILY [facility] Last Admin: 09/01/21 10:09 Dose: 220 mg Documented by: Discontinued Medications Apixaban (Apixaban 5 Mg Tab) 5 mg PO BID [facility] Last Admin: 08/29/21 09:51 Dose: 5 mg Documented by: Bisacodyl (Bisacodyl 10 Mg Supp) 10 mg RECTAL ONETIME ONE Stop: 08/30/21 16:36 Last Admin: 08/30/21 17:04 Dose: 10 mg Documented by: Dexamethasone (Dexamethasone 10 Mg/Ml Sdv) 6 mg IVPUSH ONETIME ONE Stop: 08/25/21 18:53 Last Admin: 08/25/21 19:30 Dose: 6 mg Documented by: Enoxaparin Sodium (Enoxaparin 40 Mg/0.4 Ml Syringe) 40 mg SUBCUT DAILY [facility] Last Admin: 08/28/21 08:44 Dose: 40 mg Documented by: Enoxaparin Sodium (Enoxaparin 80 Mg/0.8 Ml Syringe) 80 mg SUBCUT BEDTIME [facility] Last Admin: 08/28/21 21:59 Dose: 80 mg Documented by: Famotidine (Famotidine 20 Mg Tab) 20 mg PO BID [facility] Last Admin: 08/27/21 16:57 Dose: Not Given Documented by: Guaifenesin/Codeine Phosphate (Codeine/Guaifenesin 10-100 Mg/5 Ml Syrup 5 Ml Cup) 5 ml PO Q6H [facility] Last Admin: 08/28/21 15:36 Dose: 5 ml Documented by: Remdesivir 200 mg/ Sodium (Chloride) 250 mls @ 250 mls/hr IV ONETIME ONE Stop: 08/25/21 18:53 Last Admin: 08/25/21 19:30 Dose: 250 mls/hr Documented by: Sodium Chloride (Normal Saline) 1,000 mls @ 75 mls/hr IV ONETIME ONE Stop: 08/26/21 08:14 Last Admin: 08/25/21 19:30 Dose: 75 mls/hr Documented by: Remdesivir 100 mg/ Sodium (Chloride) 100 mls @ 100 mls/hr IV Q24H SHAN Stop: 08/29/21 19:29 Last Admin: 08/26/21 17:39 Dose: 100 mls/hr Documented by: Sodium Chloride (Normal Saline) 100 mls @ 60 mls/hr IV ASDIRECTED SHAN Stop: 08/27/21 16:00 Last Admin: 08/27/21 12:32 Dose: 60 mls/hr Documented by: Influenza Virus Vaccine (Pharmacy To Dose - Influenza Vaccine) 1 each IM ONETIME ONE Stop: 08/26/21 18:21 Influenza Virus Vaccine (Flu Vacc [id number](65up)/Mf59c/Pf 60 Mcg/0.5 Ml Syringe) 60 mcg IM .ONCE ONE Stop: 08/26/21 18:31 Iopamidol (Iopamidol 755 Mg/Ml 100 Ml Bottle) 100 ml IVPUSH ONETIME ONE Stop: 08/27/21 12:04 Last Admin: 08/27/21 12:32 Dose: 100 ml Documented by: Polyethylene Glycol (Polyethylene Glycol 3350 Powder 17 Gm Packet) 17 gm PO ONETIME ONE Stop: 08/28/21 17:51 Last Admin: 08/28/21 18:52 Dose: 17 gm Documented by: Sodium Chloride (Sodium Chloride 0.9% 10 Ml Syringe) 10 ml FLUSH ONETIME ONE Stop: 08/27/21 12:04 Last Admin: 08/27/21 14:55 Dose: Not Given Documented by: - Exam Quality Assessment: DVT Prophylaxis (Patient is on Xarelto) General: Alert, Oriented, Cooperative, No Acute Distress HEENT: Pupils Equal, Mucous Membr. Moist/[place] Neck: Supple, Trachea Midline Lungs: Clear to Auscultation, Normal Respiratory Effort Cardiovascular: No Murmurs, Irregular Rhythm GI/Abdominal Exam: Normal Bowel Sounds, Soft, Non-Tender, No Distention (Female) Exam: Deferred Back Exam: Normal Inspection Extremities: Normal Inspection, Normal Range of Motion, Non-Tender, No Pedal Edema, Normal Capillary Refill Peripheral Pulses: 2+: Radial (L), Radial (R) Skin: Warm, Dry, Intact Neurological: No New Focal Deficit Psy/Mental Status: Alert, Normal Affect, Normal Mood - Patient Data Lab Results Last 24 hrs: Laboratory Results - last 24 hr 08/31/21 09/01/21 09/01/21 Range/Units 13:27 06:03 06:03 WBC 9.52 (3.98-10.04) K/mm3 RBC 3.79 L (3.98-5.22) M/mm3 Hgb 11.9 (11.2-15.7) gm/dl Hct 36.7 (34.1-44.9) % MCV 96.8 H (79.4-94.8) fl MCH 31.4 (25.6-32.2) pg MCHC 32.4 (32.2-35.5) g/dl RDW Std Deviation 46.4 H (36.4-46.3) fL Plt Count 257 (182-369) K/mm3 MPV 9.8 (9.4-12.3) fl Neut % (Auto) 67.4 (34.0-71.1) % Lymph % (Auto) 19.2 L (19.3-51.7) % [place] % (Auto) 8.7 (4.7-12.5) % Eos % (Auto) 0.4 L (0.7-5.8) Baso % (Auto) 0.2 (0.1-1.2) % Neut # (Auto) 6.41 H (1.56-6.13) K/mm3 Lymph # (Auto) 1.83 (1.18-3.74) K/mm3 [place] # (Auto) 0.83 H (0.24-0.36) K/mm3 Eos # (Auto) 0.04 (0.04-0.36) K/mm3 Baso # (Auto) 0.02 (0.01-0.08) K/mm3 Manual Slide Review Abnormal smear Sodium 139 (136-145) mEq/L Potassium 3.8 (3.5-5.1) mEq/L Chloride 105 (98-107) mEq/L Carbon Dioxide 23 (21-32) mEq/L Anion Gap 14.8 (5-15) BUN 27 H (7-18) mg/dL Creatinine 1.2 H (0.55-1.02) mg/dL Est Cr Clr Drug Dosing 30.93 mL/min Estimated GFR (MDRD) 43 (>60) mL/min BUN/Creatinine Ratio 22.5 H (14-18) Glucose 88 (70-99) mg/dL Calcium 8.6 (8.5-10.1) mg/dL Total Bilirubin 0.5 (0.2-1.0) mg/dL AST 33 (15-37) U/L ALT 46 (14-59) U/L Alkaline Phosphatase 70 (46-116) U/L Troponin I < 0.017 (0.00-0.056) ng/mL C-Reactive Protein 0.6 (<1.0) mg/dL Total Protein 6.5 (6.4-8.2) g/dl Albumin 2.8 L (3.4-5.0) g/dl Globulin 3.7 gm/dL Albumin/Globulin Ratio 0.8 L (1-2) Result Diagrams: 09/01/21 06:03 09/01/21 06:03 Sepsis Event Note - Evaluation Sepsis Screening Result: No Definite Risk - Focused Exam Vital Signs: Vital Signs Temp Pulse Resp BP Pulse Ox 09/01/21 10:03 97.3 F 92 22 H 102/65 91 L 09/01/21 09:12 97.3 F 75 28 H 100/69 90 L 09/01/21 03:30 97.9 F 78 20 111/81 93 L - Problem List & Annotations (1) Thyroid nodule SNOMED Code(s): 382420082 Code(s): E04.1 - NONTOXIC SINGLE THYROID NODULE Status: Acute Priority: Low Current Visit: Yes (2) [place] (acute kidney injury) SNOMED Code(s): 93383542, 29292911 Code(s): N17.9 - ACUTE KIDNEY FAILURE, UNSPECIFIED Status: Acute Priority: Medium Current Visit: Yes (3) Elevated d-dimer SNOMED Code(s): 212629836 Code(s): R79.89 - OTHER SPECIFIED ABNORMAL FINDINGS OF BLOOD CHEMISTRY Status: Acute Priority: High Current Visit: Yes (4) Hypoxia SNOMED Code(s): 134036779 Code(s): R09.02 - HYPOXEMIA Status: Acute Priority: High Current Visit: Yes (5) New onset a-fib SNOMED Code(s): 18976157 Code(s): I48.91 - UNSPECIFIED ATRIAL FIBRILLATION Status: Acute Priority: High Current Visit: Yes (6) Pneumonia due to COVID-19 virus SNOMED Code(s): 452174243645503515 Code(s): U07.1 - COVID-19; J12.82 - PNEUMONIA DUE TO CORONAVIRUS DISEASE 2019 Status: Acute Priority: High Current Visit: Yes (7) Former smoker SNOMED Code(s): 3453212 Code(s): Z87.891 - PERSONAL HISTORY OF NICOTINE DEPENDENCE Status: Chronic Priority: Low Current Visit: No (8) History of breast cancer SNOMED Code(s): 792047466 Code(s): Z85.3 - PERSONAL HISTORY OF MALIGNANT NEOPLASM OF BREAST Status: Chronic Priority: Low Current Visit: No (9) History of lymphoma SNOMED Code(s): 482842765 Code(s): Z85.79 - PRSNL HX OF MALIG NEOPLM OF LYMPHOID, HEMATPOETC & REL TISS Status: Chronic Priority: Low Current Visit: No (10) Hypertension SNOMED Code(s): 76176022 Code(s): I10 - ESSENTIAL (PRIMARY) HYPERTENSION Status: Chronic Priority: Medium Current Visit: No Qualifiers: Hypertension type: unspecified Qualified Code(s): I10 - Essential (primary) hypertension (11) Hypoparathyroidism SNOMED Code(s): 33704254 Code(s): E20.9 - HYPOPARATHYROIDISM, UNSPECIFIED Status: Chronic Priority: Low Current Visit: No Qualifiers: Hypoparathyroidism type: unspecified Qualified Code(s): E20.9 - Hypoparathyroidism, unspecified (12) Hypothyroid SNOMED Code(s): 60430446 Code(s): E03.9 - HYPOTHYROIDISM, UNSPECIFIED Status: Chronic Priority: Low Current Visit: No Qualifiers: Hypothyroidism type: unspecified Qualified Code(s): E03.9 - Hypothyroidism, unspecified (13) Obesity SNOMED Code(s): 876142912, 496076345 Code(s): E66.9 - OBESITY, UNSPECIFIED Status: Chronic Priority: Low Current Visit: No Qualifiers: Obesity type: unspecified obesity type Obesity classification: adult class 1 (BMI 30 - 34.9) Serious obesity comorbidity presence: unspecified whether serious comorbidity present Body mass index: BMI 31.0-31.9 Qualified Code(s): E66.9 - Obesity, unspecified; Z68.31 - Body mass index [BMI] 31.0-31.9, adult (14) S/P mastectomy SNOMED Code(s): 478315012, 14703029, 020679075 Code(s): Z90.10 - ACQUIRED ABSENCE OF UNSPECIFIED BREAST AND NIPPLE Status: Chronic Priority: Low Current Visit: No Qualifiers: Laterality: unspecified laterality Qualified Code(s): Z90.10 - Acquired absence of unspecified breast and nipple - Problem List Review Problem List Initiated/Reviewed/Updated: Yes - Assessment Assessment:: Admission assessment - 08/26/2021 * 81-year-old female presents to ED on 08/25/2021 accompanied by her son for weakness * History of Hypothyroidism, hypoparathyroidism, hypertension, obesity with a BMI of 31, breast cancer and subsequent mastectomy, history of lymphoma, and a smoker who quit many years ago * Reports she has been feeling poorly for a few weeks but symptoms have worsened over the weekend. * States no appetite and has been feeling very lethargic. Has been unable to get up and make herself food. * Denies fevers or chills but reports increased cough and shortness of breath. * Reportedly seen at the walk-in clinic a few days earlier and given a Z-Gavin. * She is not vaccinated for COVID-19. * Labs are obtained showing: * WBC of 7.12. * Hemoglobin 11.7. * Platelet 152,000. * Neutrophils are elevated 72.2%. * CRP is 8.7. * Sodium is 137. * Potassium 4.0. * Chloride 104. * Carbon dioxide 21. * Anion gap 16.0. * BUN is 26. Creatinine 1.5. GFR is 33. * Glucose is 113. * Calcium 7.8. * Magnesium 2.1. * Total bilirubin 0.4. * AST is 57, ALT 35, alkaline phosphatase is 81. * Protein is 7.3. * Albumin is 3.0. * SARS-CoV-2 RNA is positive. * Chest x-ray is obtained showing findings suspicious for moderate to severe changes of COVID-19 pneumonia and other incidental findings. * She is started on 75 mils of NS, given 6 mg IV push dexamethasone and 200 mg remdesivir. * She is held overnight in the ED and subsequent mated to the medical floor on telemetry for management of her hypoxia due to COVID-19 pneumonia. 08/27/2021 This is an 81-year-old female admitted to the floor for treatment of COVID-19 pneumonia. She is currently on 4 L of oxygen with saturations in the low 90s. She has been a bit bradycardic with heart rate in the 40s and 50s. Labs today show a WBC of 8.72. Hemoglobin is 11.2. Platelets 181,000. Neutrophils are 79.7%. D-dimer is elevated at 2.52. Sodium is 140. Potassium 4.6. Chloride 109. Carbon dioxide 18. Anion gap is 17.6. BUN is 44. Creatinine 1.4. GFR is 36. Glucose is 151. Magnesium is 2.2. Bilirubin 0.2. AST is 43, ALT 31, alkaline phosphatase 67. CRP is 5.9. Albumin is 2.7. Given her elevated D-dimer and after discussion with Dr. Benson, attending hospitalist we will order a CTA today to rule out PE. Continue treatment with dexamethasone and remdesivir. 08/28/2021 This is an 81-year-old female admitted to the floor for treatment of COVID-19 pneumonia. She was requiring 7 L of oxygen overnight and has been weaned down to 5 L with saturations in the upper 80s. Labs show a leukocytosis of 11.79, likely steroid related. Hemoglobin is 11.1. Platelets are 228,000. Neutrophils are 83.4. Sodium is 140. Potassium 4.8. Chloride 110. Carbon dioxide is 22. Anion gap is 12.8. BUN is 45. Creatinine 1.3. GFR is 39. Glucose 150. Calcium is 8.0. Magnesium 2.3. Total bilirubin 0.2. AST is 45, ALT 36, alkaline phosphatase 67. CRP is 2.5. Albumin is 2.7. TSH checked yesterday was 3.289. Unfortunately patient was having bradycardia and it is felt this was due to remdesivir. Remdesivir was therefore stopped. Her bradycardia has improved with a heart rate now in the 40s and 50s. We will continue current treatment plan. 08/29/2021 This is an 81-year-old female admitted to the floor for treatment of her COVID- 19 pneumonia. She was started on remdesivir and dexamethasone and once on the floor was noted to be bradycardic so remdesivir was stopped. Yesterday she began having new onset atrial fibrillation which was EKG confirmed. TSH has been checked the day earlier and was on the high end of normal at 3.289. She was started on 1 mg/kg of Lovenox twice daily and will be transition to 5 mg Eliquis twice daily today. Echocardiogram is ordered and pending. Her oxygen demand is improving and she is on 3 L currently via nasal cannula. Overall she says she feels terrible and has generalized myalgias and weakness. White count today is slightly elevated at 10.30. This is likely steroid related. Platelets are 246,000. D-dimer is down to 1.08. Sodium 142. Potassium 4.4. Carbon dioxide 20. Anion gap is 16.4. BUN is 41. Creatinine 1.3. GFR is up to 39. Magnesium is 2.4. CRP is down to 1.1. Albumin is 2.7. She will remain hospitalized pending continued improvement. 08/30/2021 Patient is feeling fine. Does not have any new complaints. Denies fever, chills, nausea or vomiting. She is on 2 to 3 L Blood pressure was a soft of this morning. It is improving this afternoon Creatinine 1.2, GFR 43 CRP 1.0 08/31/2021 Today patient is a feeling very tired and he does not have any energy. He also complains of mild chest pain which is worsened by taking deep breath. He otherwise denies fever, chills, abdominal pain or diarrhea. He is on 1 to 2 L D-dimer 1.33 Troponin less than 0.017 Creatinine 1.1, GFR 48 09/01/2021 81-year-old female admitted to the floor for the treatment of Covid pneumonia. She is currently on room air with O2 saturations at 93% however with ambulation O2 saturations dropped into the 80s. Orders are in place to qualify the patient for home oxygen. Patient reports feeling tired today however she states her shortness of breath, cough and appetite are all getting better. Creatinine 1.2. GFR 43. Echocardiogram report summary: 1. The study was performed with the patient in atrial fibrillation/flutter. 2. The left ventricular internal cavity size is normal. 3. Normal left ventricular systolic function. 4. Left ventricular ejection fraction, by visual estimation, is 60 to 70%. 5. No regional wall motion abnormalities. 6. Mild concentric left ventricular hypertrophy. 7. The aortic valve is not well visualized. 8. There is mild aortic valve sclerosis without stenosis. 9. The mitral valve is not well-visualized. 10. Mild mitral valve regurgitation. 11. Trace tricuspid valve regurgitation. 12. The inferior vena cava is normal. 13. The right ventricular systolic pressure is unable to be determined. - Plan Plan:: Pneumonia due to COVID-19 virus Hypoxia Former smoker Elevated D-Dimer * O2 as needed to keep saturations 88-95% * Respiratory therapy to qualify the patient for home oxygen * Telemetry * Continuous pulse oximetry * PT/OT * CM/SW * Remdesivir - Discontinued due to bradycardia * Dexamethasone - day 05/24 * Xarelto 15mg daily * RT consultation * PRN albuterol MDI * PRN Duonebs * IS * Famotidine 20mg BID * Zinc supplementation * Daily labs * Check D-Dimer Q48 hours * Airborne/contact precautions New onset A-fib * Telemetry * Not on any HR control meds but rate is controlled * Xarelto 15mg daily [place], improving * Acute on chronic * Creatinine on prior labs of 1.15, BUN 23, GFR 46. * Monitor daily labs * Avoid nephrotoxic meds Hypertension * No acute concerns * Hold home Cozaar for now due to hypotension Hypoparathyroidism Hypothyroidism * No acute concerns * Continue home levothyroxine Obesity * No acute concerns * Consider tool procurement coordinator consultation History of breast cancer History of lymphoma S/P mastectomy * No acute concerns Thyoid nodule * f/u with pcp Code status: CPR only PCP: Dr. Arreguin DVT prophylaxis: Xarelto 15mg daily Social: Patient lives alone locally and has a son who helps Disposition: Patient admitted to floor for management of COVID-19 PNA. May be able to release from hospital in 1-2 more days. Discharge barrier: fatigue, weakness Recommendation from PT OT Home oxygen eval was ordered Pt needs pcp, cardiology and nephrology
[2021-09-01] MEDS: Rivaroxaban 15 MG Tab PO SCH (17:32)
[2021-09-01] MEDS: Famotidine 20 MG Tab PO SCH (21:42)
[2021-09-02] MEDS: Codeine/guaiFENesin 10-100 MG/5 ML Syrup 5 ML Cup PO SCH ×3 (04:13→15:21)
[2021-09-02] MEDS: Zinc Sulfate 220 MG Cap PO SCH (09:00)
[2021-09-02] MEDS: Citalopram 20 MG Tab PO SCH (09:01)
[2021-09-02] MEDS: Levothyroxine 100 MCG Tab PO SCH (09:01)
[2021-09-02] MEDS: Dexamethasone 4 MG Tab PO SCH (09:01)
--- NOTE | 2021-09-02 14:53 | PCM.DCSUM1 ---
Discharge Summary - Hospital Course Free Text/Narrative:: - Problem List & Annotations (1) Thyroid nodule SNOMED Code(s): 530566660 Code(s): E04.1 - NONTOXIC SINGLE THYROID NODULE Status: Acute Priority: Low Current Visit: Yes (2) [place] (acute kidney injury) SNOMED Code(s): 73121594, 90727126 Code(s): N17.9 - ACUTE KIDNEY FAILURE, UNSPECIFIED Status: Acute Priority: Medium Current Visit: Yes (3) Elevated d-dimer SNOMED Code(s): 284204707 Code(s): R79.89 - OTHER SPECIFIED ABNORMAL FINDINGS OF BLOOD CHEMISTRY Status: Acute Priority: High Current Visit: Yes (4) Hypoxia SNOMED Code(s): 914107586 Code(s): R09.02 - HYPOXEMIA Status: Acute Priority: High Current Visit: Yes (5) New onset a-fib SNOMED Code(s): 58124375 Code(s): I48.91 - UNSPECIFIED ATRIAL FIBRILLATION Status: Acute Priority: High Current Visit: Yes (6) Pneumonia due to COVID-19 virus SNOMED Code(s): 904668614079170764 Code(s): U07.1 - COVID-19; J12.82 - PNEUMONIA DUE TO CORONAVIRUS DISEASE 2019 Status: Acute Priority: High Current Visit: Yes (7) Former smoker SNOMED Code(s): 0509752 Code(s): Z87.891 - PERSONAL HISTORY OF NICOTINE DEPENDENCE Status: Chronic Priority: Low Current Visit: No (8) History of breast cancer SNOMED Code(s): 018009193 Code(s): Z85.3 - PERSONAL HISTORY OF MALIGNANT NEOPLASM OF BREAST Status: Chronic Priority: Low Current Visit: No (9) History of lymphoma SNOMED Code(s): 335583300 Code(s): Z85.79 - PRSNL HX OF MALIG NEOPLM OF LYMPHOID, HEMATPOETC & REL TISS Status: Chronic Priority: Low Current Visit: No (10) Hypertension SNOMED Code(s): 29643050 Code(s): I10 - ESSENTIAL (PRIMARY) HYPERTENSION Status: Chronic Priority: Medium Current Visit: No Qualifiers: Hypertension type: unspecified Qualified Code(s): I10 - Essential (primary) hypertension (11) Hypoparathyroidism SNOMED Code(s): 63657134 Code(s): E20.9 - HYPOPARATHYROIDISM, UNSPECIFIED Status: Chronic Priority: Low Current Visit: No Qualifiers: Hypoparathyroidism type: unspecified Qualified Code(s): E20.9 - Hypoparathyroidism, unspecified (12) Hypothyroid SNOMED Code(s): 03981557 Code(s): E03.9 - HYPOTHYROIDISM, UNSPECIFIED Status: Chronic Priority: Low Current Visit: No Qualifiers: Hypothyroidism type: unspecified Qualified Code(s): E03.9 - Hypothyroidism, unspecified (13) Obesity SNOMED Code(s): 525388689, 952010915 Code(s): E66.9 - OBESITY, UNSPECIFIED Status: Chronic Priority: Low Current Visit: No Qualifiers: Obesity type: unspecified obesity type Obesity classification: adult class 1 (BMI 30 - 34.9) Serious obesity comorbidity presence: unspecified whether serious comorbidity present Body mass index: BMI 31.0-31.9 Qualified Code(s): E66.9 - Obesity, unspecified; Z68.31 - Body mass index [BMI] 31.0-31.9, adult (14) S/P mastectomy SNOMED Code(s): 902511864, 89475739, 931689737 Code(s): Z90.10 - ACQUIRED ABSENCE OF UNSPECIFIED BREAST AND NIPPLE Status: Chronic Priority: Low Current Visit: No Qualifiers: Laterality: unspecified laterality Qualified Code(s): Z90.10 - Acquired absence of unspecified breast and nipple - Problem List Review Problem List Initiated/Reviewed/Updated: Yes - Assessment Assessment:: Admission assessment - 08/26/2021 * 81-year-old female presents to ED on 08/25/2021 accompanied by her son for weakness * History of Hypothyroidism, hypoparathyroidism, hypertension, obesity with a BMI of 31, breast cancer and subsequent mastectomy, history of lymphoma, and a smoker who quit many years ago * Reports she has been feeling poorly for a few weeks but symptoms have worsened over the weekend. * States no appetite and has been feeling very lethargic. Has been unable to get up and make herself food. * Denies fevers or chills but reports increased cough and shortness of breath. * Reportedly seen at the walk-in clinic a few days earlier and given a Z-Gavin. * She is not vaccinated for COVID-19. * Labs are obtained showing: * WBC of 7.12. * Hemoglobin 11.7. * Platelet 152,000. * Neutrophils are elevated 72.2%. * CRP is 8.7. * Sodium is 137. * Potassium 4.0. * Chloride 104. * Carbon dioxide 21. * Anion gap 16.0. * BUN is 26. Creatinine 1.5. GFR is 33. * Glucose is 113. * Calcium 7.8. * Magnesium 2.1. * Total bilirubin 0.4. * AST is 57, ALT 35, alkaline phosphatase is 81. * Protein is 7.3. * Albumin is 3.0. * SARS-CoV-2 RNA is positive. * Chest x-ray is obtained showing findings suspicious for moderate to severe changes of COVID-19 pneumonia and other incidental findings. * She is started on 75 mils of NS, given 6 mg IV push dexamethasone and 200 mg remdesivir. * She is held overnight in the ED and subsequent mated to the medical floor on telemetry for management of her hypoxia due to COVID-19 pneumonia. 08/27/2021 This is an 81-year-old female admitted to the floor for treatment of COVID-19 pneumonia. She is currently on 4 L of oxygen with saturations in the low 90s. She has been a bit bradycardic with heart rate in the 40s and 50s. Labs today show a WBC of 8.72. Hemoglobin is 11.2. Platelets 181,000. Neutrophils are 79.7%. D-dimer is elevated at 2.52. Sodium is 140. Potassium 4.6. Chloride 109. Carbon dioxide 18. Anion gap is 17.6. BUN is 44. Creatinine 1.4. GFR is 36. Glucose is 151. Magnesium is 2.2. Bilirubin 0.2. AST is 43, ALT 31, alkaline phosphatase 67. CRP is 5.9. Albumin is 2.7. Given her elevated D- dimer and after discussion with Dr. Benson, attending hospitalist we will order a CTA today to rule out PE. Continue treatment with dexamethasone and remdesivir. 08/28/2021 This is an 81-year-old female admitted to the floor for treatment of COVID-19 pneumonia. She was requiring 7 L of oxygen overnight and has been weaned down to 5 L with saturations in the upper 80s. Labs show a leukocytosis of 11.79, likely steroid related. Hemoglobin is 11.1. Platelets are 228,000. Neutrophils are 83.4. Sodium is 140. Potassium 4.8. Chloride 110. Carbon dioxide is 22. Anion gap is 12.8. BUN is 45. Creatinine 1.3. GFR is 39. Glucose 150. Calcium is 8.0. Magnesium 2.3. Total bilirubin 0.2. AST is 45, ALT 36, alkaline phosphatase 67. CRP is 2.5. Albumin is 2.7. TSH checked yesterday was 3.289. Unfortunately patient was having bradycardia and it is felt this was due to remdesivir. Remdesivir was therefore stopped. Her bradycardia has improved with a heart rate now in the 40s and 50s. We will continue current treatment plan. 08/29/2021 This is an 81-year-old female admitted to the floor for treatment of her COVID- 19 pneumonia. She was started on remdesivir and dexamethasone and once on the floor was noted to be bradycardic so remdesivir was stopped. Yesterday she began having new onset atrial fibrillation which was EKG confirmed. TSH has been checked the day earlier and was on the high end of normal at 3.289. She was started on 1 mg/kg of Lovenox twice daily and will be transition to 5 mg Eliquis twice daily today. Echocardiogram is ordered and pending. Her oxygen demand is improving and she is on 3 L currently via nasal cannula. Overall she says she feels terrible and has generalized myalgias and weakness. White count today is slightly elevated at 10.30. This is likely steroid related. Platelets are 246,000. D-dimer is down to 1.08. Sodium 142. Potassium 4.4. Carbon dioxide 20. Anion gap is 16.4. BUN is 41. Creatinine 1.3. GFR is up to 39. Magnesium is 2.4. CRP is down to 1.1. Albumin is 2.7. She will remain hospitalized pending continued improvement. 08/30/2021 Patient is feeling fine. Does not have any new complaints. Denies fever, chills, nausea or vomiting. She is on 2 to 3 L Blood pressure was a soft of this morning. It is improving this afternoon Creatinine 1.2, GFR 43 CRP 1.0 08/31/2021 Today patient is a feeling very tired and he does not have any energy. He also complains of mild chest pain which is worsened by taking deep breath. He otherwise denies fever, chills, abdominal pain or diarrhea. He is on 1 to 2 L D-dimer 1.33 Troponin less than 0.017 Creatinine 1.1, GFR 48 09/01/2021 81-year-old female admitted to the floor for the treatment of Covid pneumonia. She is currently on room air with O2 saturations at 93% however with ambulation O2 saturations dropped into the 80s. Orders are in place to qualify the patient for home oxygen. Patient reports feeling tired today however she states her shortness of breath, cough and appetite are all getting better. Creatinine 1.2. GFR 43. Echocardiogram report summary: 1. The study was performed with the patient in atrial fibrillation/flutter. 2. The left ventricular internal cavity size is normal. 3. Normal left ventricular systolic function. 4. Left ventricular ejection fraction, by visual estimation, is 60 to 70%. 5. No regional wall motion abnormalities. 6. Mild concentric left ventricular hypertrophy. 7. The aortic valve is not well visualized. 8. There is mild aortic valve sclerosis without stenosis. 9. The mitral valve is not well-visualized. 10. Mild mitral valve regurgitation. 11. Trace tricuspid valve regurgitation. 12. The inferior vena cava is normal. 13. The right ventricular systolic pressure is unable to be determined. - Plan Plan:: Pneumonia due to COVID-19 virus Hypoxia Former smoker Elevated D-Dimer * O2 as needed to keep saturations 88-95% * Respiratory therapy to qualify the patient for home oxygen * Telemetry * Continuous pulse oximetry * PT/OT * CM/SW * Remdesivir - Discontinued due to bradycardia * Dexamethasone - day 07/25 * Xarelto 15mg daily * RT consultation * PRN albuterol MDI * PRN Duonebs * IS * Famotidine 20mg BID * Zinc supplementation * Daily labs * Check D-Dimer Q48 hours * Airborne/contact precautions New onset A-fib * Telemetry * Not on any HR control meds but rate is controlled * Xarelto 15mg daily [place], improving, may have CKD, stage III * Acute on chronic * Creatinine on prior labs of 1.15, BUN 23, GFR 46. * Monitor daily labs * Avoid nephrotoxic meds Hypertension * No acute concerns * Hold home Cozaar for now due to hypotension * home losartan is on hold due to normotension Hypoparathyroidism Hypothyroidism * No acute concerns * Continue home levothyroxine Obesity * No acute concerns * Consider subcontract administrator consultation History of breast cancer History of lymphoma S/P mastectomy * No acute concerns Thyoid nodule * f/u with pcp Patient is a feeling fine today. Denies headache, dizziness, chest pain, shortness of breath, abdominal pain, nausea, vomiting, or diarrhea. Vital signs are stable and acceptable. PT OT CM recommended home health with RN PT OT. Patient will be discharged to home today to follow with the PCP in 3 days, evaluation advisor within 1 week and correspondence review clerk within 1 week. Continue PT OT. Continue home oxygen. Repeat a CBC, CMP, and electrolytes in 3 days. Stop Xarelto and go to the ER if bleeding occurs. She will be discharged on dexamethasone with tapering. Call PCP for medical issues. Home oxygen eval was ordered Diagnosis: Stroke: No - Discharge Data Discharge Date: 09/02/21 Discharge Disposition: Home, [facility] Condition: Stable - Referral to Home Health Date of Face to Face Encounter: 09/02/21 Reason for Homebound Status: [id number] meeting with the patient or the family. Patient have the following diagnoses: Pneumonia due to COVID-19, hypoxia, acute kidney injury, also see discharge summary for additional diagnoses. Patient needs home health care nursing services for: skilled assessment, vital signs, disease education/management, and medication education. Physical therapy for gait training, transfer training, safety education, neuromuscular reeducation, therapeutic exercise, balance training. Occupational Therapy for: Activities of daily living, balance training, functional mobility training, safety education, therapeutic activities, therapeutic exercises. Maude multani is a currently homebound related to decreased activity tolerance, decreased level of endurance, and need for assistance. Patient will be followed up by his own primary provider Dr. Arreguin. Primary Care Physician: Isrrael Arreguin MD Skilled Need: [id number] meeting with the patient or the family. Patient have the following diagnoses: Pneumonia due to COVID-19, hypoxia, acute kidney injury, also see discharge summary for additional diagnoses. Patient needs home health care nursing services for: skilled assessment, vital signs, disease edu cation/management, and medication education. Physical therapy for gait training, transfer training, safety education, neuromuscular reeducation, therapeutic exercise, balance training. Occupational Therapy for: Activities of daily living, balance training, functional mobility training, safety education, therapeutic activities, therapeutic exercises. Patient is a currently homebound related to decreased activity tolerance, decreased level of endurance, and need for assistance. Patient will be followed up by his own primary provider Dr. Arreguin. - Patient Summary/Data Consults: Consultations 08/26/21 13:45 Consult to Case Management/Mold Swabber [CONS] Routine 08/26/21 13:49 OT Evaluation and Treatment [CONS] Routine PT Evaluation and Treatment [CONS] Routine Respiratory Care Assess and Treatment [CONS] Routine Recommended Follow-up Testing/Procedures: follow with the PCP in 3 days, evaluation advisor within 1 week and correspondence review clerk within 1 week. Continue PT OT. Continue home oxygen. Repeat a CBC, CMP, and electrolytes in 3 days. Stop Xarelto and go to the ER if bleeding occurs. She will be discharged on dexamethasone with tapering. Call PCP for medical issues. Home oxygen eval was ordered - Patient Instructions Diet: Heart Healthy Diet Activity: As Tolerated Driving: Do Not Drive - Discharge Plan *PRESCRIPTION DRUG MONITORING PROGRAM REVIEWED*: Not Applicable *COPY OF PRESCRIPTION DRUG MONITORING REPORT IN PATIENT EULALIA: Not Applicable Prescriptions/Med Rec: dexAMETHasone [Dexamethasone] 6 mg PO DAILY #6 tablet Albuterol [Proventil HFA] 1 puff INH Q4H PRN #14 inhaler PRN Reason: Shortness Of Breath Rivaroxaban [Xarelto] 15 mg PO WITHDINNER #30 tablet Home Medications: Home Meds Citalopram [Citalopram HBr] 20 mg PO DAILY 08/25/21 [History] Levothyroxine [Synthroid] 100 mcg PO DAILY 08/25/21 [History] Albuterol [Proventil HFA] 1 puff INH Q4H PRN #14 inhaler 09/02/21 [Rx] Rivaroxaban [Xarelto] 15 mg PO WITHDINNER #30 tablet 09/02/21 [Rx] dexAMETHasone [Dexamethasone] 6 mg PO DAILY #6 tablet 09/02/21 [Rx] Oxygen Therapy Mode: Nasal Cannula Oxygen Flow Rate (L/min): 2 Patient Handouts: COVID-19 Frequently Asked Questions, COVID-19, 10 Things You Can Do to Manage Your COVID-19 Symptoms at Home - [facility] (05/30/2021), Sepsis, Self Care, Adult Forms: ED Department Discharge Referrals: Isrrael Arreguin MD [Primary Care Provider] - 09/11/21 2:30 pm (Please arrive at least 15 minutes prior to the appointment to register) see, pcp in 3 days [Other] see, cardiology within one week. [Other] see, nephrology within one week. [Other] - Discharge Summary/Plan Comment DC Time >30 min.: Yes Total # of Minutes for Discharge Time: 90mins - General Info Date of Service: 09/02/21 Admission Dx/Problem (Free Text: Admission Diagnosis/Problem Admission Diagnosis/Problem Hypoxia Subjective Update: Alix was seen on rounds this morning. She states her breathing does feel better. She denies cough. She states her appetite is getting better. - Review of Systems Systems Review Comment: General: Reports: No Symptoms HEENT: Reports: No Symptoms Pulmonary: Reports: Cough (Occasional) Cardiovascular: Reports: No Symptoms Gastrointestinal: Reports: No Symptoms Genitourinary: Reports: No Symptoms Musculoskeletal: Reports: No Symptoms Skin: Reports: No Symptoms Neurological: Reports: No Symptoms Psychiatric: Reports: No Symptoms - Patient Data Vitals - Most Recent: Last Vital Signs Temp 36.6 C 09/02/21 12:58 Pulse 64 09/02/21 12:58 Resp 18 09/02/21 12:58 BP 120/86 09/02/21 12:58 Pulse Ox 90 L 09/02/21 12:58 Weight - Most Recent: 78.834 kg I&O - Last 24 hours: Intake & Output 09/01/21 09/02/21 09/02/21 22:59 06:59 14:59 Intake Total 475 200 Output Total 700 600 Balance -225 -400 Lab Results - Last 24 hrs: Laboratory Results - last 24 hr 09/02/21 09/02/21 Range/Units 06:32 06:32 WBC 6.96 (3.98-10.04) K/mm3 RBC 3.61 L (3.98-5.22) M/mm3 Hgb 11.3 (11.2-15.7) gm/dl Hct 36.0 (34.1-44.9) % MCV 99.7 H (79.4-94.8) fl MCH 31.3 (25.6-32.2) pg MCHC 31.4 L (32.2-35.5) g/dl RDW Std Deviation 48.7 H (36.4-46.3) fL Plt Count 256 (182-369) K/mm3 MPV 10.1 (9.4-12.3) fl Neut % (Auto) 60.6 (34.0-71.1) % Lymph % (Auto) 22.1 (19.3-51.7) % [place] % (Auto) 12.1 (4.7-12.5) % Eos % (Auto) 0.9 (0.7-5.8) Baso % (Auto) 0.1 (0.1-1.2) % Neut # (Auto) 4.22 (1.56-6.13) K/mm3 Lymph # (Auto) 1.54 (1.18-3.74) K/mm3 [place] # (Auto) 0.84 H (0.24-0.36) K/mm3 Eos # (Auto) 0.06 (0.04-0.36) K/mm3 Baso # (Auto) 0.01 (0.01-0.08) K/mm3 Manual Slide Review Abnormal smear Sodium 137 (136-145) mEq/L Potassium 4.4 (3.5-5.1) mEq/L Chloride 104 (98-107) mEq/L Carbon Dioxide 26 (21-32) mEq/L Anion Gap 11.4 (5-15) BUN 28 H (7-18) mg/dL Creatinine 1.1 H (0.55-1.02) mg/dL Est Cr Clr Drug Dosing 33.74 mL/min Estimated GFR (MDRD) 48 (>60) mL/min BUN/Creatinine Ratio 25.5 H (14-18) Glucose 97 (70-99) mg/dL Calcium 8.5 (8.5-10.1) mg/dL Total Bilirubin 0.4 (0.2-1.0) mg/dL AST 30 (15-37) U/L ALT 47 (14-59) U/L Alkaline Phosphatase 68 (46-116) U/L C-Reactive Protein 1.6 H* (<1.0) mg/dL Total Protein 6.3 L (6.4-8.2) g/dl Albumin 2.7 L (3.4-5.0) g/dl Globulin 3.6 gm/dL Albumin/Globulin Ratio 0.8 L (1-2) Med Orders - Current: Current Medications Acetaminophen (Acetaminophen 325 Mg Tab) 650 mg PO Q4H PRN PRN Reason: Pain (Mild 1-3)/fever Last Admin: 08/30/21 10:05 Dose: 650 mg Documented by: Albuterol (Albuterol 6.7 Gm Inhaler) 0 gm INH Q2H PRN PRN Reason: Shortness of Breath Albuterol/Ipratropium (Albuterol/Ipratropium 3.0-0.5 Mg/3 Ml Neb Soln) 3 ml NEB QIDRT PRN PRN Reason: Shortness Of Breath/wheezing Last Admin: 08/31/21 14:11 Dose: 3 ml Documented by: Citalopram Hydrobromide (Citalopram 20 Mg Tab) 20 mg PO DAILY [facility] Last Admin: 09/02/21 09:01 Dose: 20 mg Documented by: Dexamethasone (Dexamethasone 4 Mg Tab) 6 mg PO DAILY [facility] Stop: 09/03/21 09:01 Last Admin: 09/02/21 09:01 Dose: 6 mg Documented by: Famotidine (Famotidine 20 Mg Tab) 20 mg PO BEDTIME [facility] Last Admin: 09/01/21 21:42 Dose: 20 mg Documented by: Guaifenesin/Codeine Phosphate (Codeine/Guaifenesin 10-100 Mg/5 Ml Syrup 5 Ml Cup) 5 ml PO Q6H [facility] Last Admin: 09/02/21 09:00 Dose: 5 ml Documented by: Levothyroxine Sodium (Levothyroxine 100 Mcg Tab) 100 mcg PO DAILY [facility] Last Admin: 09/02/21 09:01 Dose: 100 mcg Documented by: Ondansetron HCl (Ondansetron 4 Mg/2 Ml Sdv) 4 mg IV Q6H PRN PRN Reason: Nausea/Vomiting Last Admin: 09/01/21 13:05 Dose: 4 mg Documented by: Rivaroxaban (Rivaroxaban 15 Mg Tab) 15 mg PO WITHDINNER [facility] Last Admin: 09/01/21 17:32 Dose: 15 mg Documented by: Senna/Docusate Sodium (Docusate Sodium/Sennosides 50-8.6 Mg Tab) 1 tab PO BID PRN PRN Reason: Constipation Last Admin: 08/30/21 20:59 Dose: 1 tab Documented by: Sodium Chloride (Sodium Chloride 0.9% 10 Ml Syringe) 10 ml FLUSH ASDIRECTED PRN PRN Reason: Keep Vein Open Last Admin: 08/25/21 17:07 Dose: 10 ml Documented by: Temazepam (Temazepam 7.5 Mg Cap) 7.5 mg PO BEDTIME PRN PRN Reason: Insomnia Last Admin: 08/30/21 20:59 Dose: 7.5 mg Documented by: Zinc Sulfate (Zinc Sulfate 220 Mg Cap) 220 mg PO DAILY [facility] Last Admin: 09/02/21 09:00 Dose: 220 mg Documented by: Discontinued Medications Apixaban (Apixaban 5 Mg Tab) 5 mg PO BID [facility] Last Admin: 08/29/21 09:51 Dose: 5 mg Documented by: Bisacodyl (Bisacodyl 10 Mg Supp) 10 mg RECTAL ONETIME ONE Stop: 08/30/21 16:36 Last Admin: 08/30/21 17:04 Dose: 10 mg Documented by: Dexamethasone (Dexamethasone 10 Mg/Ml Sdv) 6 mg IVPUSH ONETIME ONE Stop: 08/25/21 18:53 Last Admin: 08/25/21 19:30 Dose: 6 mg Documented by: Enoxaparin Sodium (Enoxaparin 40 Mg/0.4 Ml Syringe) 40 mg SUBCUT DAILY [facility] Last Admin: 08/28/21 08:44 Dose: 40 mg Documented by: Enoxaparin Sodium (Enoxaparin 80 Mg/0.8 Ml Syringe) 80 mg SUBCUT BEDTIME [facility] Last Admin: 08/28/21 21:59 Dose: 80 mg Documented by: Famotidine (Famotidine 20 Mg Tab) 20 mg PO BID [facility] Last Admin: 08/27/21 16:57 Dose: Not Given Documented by: Guaifenesin/Codeine Phosphate (Codeine/Guaifenesin 10-100 Mg/5 Ml Syrup 5 Ml Cup) 5 ml PO Q6H [facility] Last Admin: 08/28/21 15:36 Dose: 5 ml Documented by: Remdesivir 200 mg/ Sodium (Chloride) 250 mls @ 250 mls/hr IV ONETIME ONE Stop: 08/25/21 18:53 Last Admin: 08/25/21 19:30 Dose: 250 mls/hr Documented by: Sodium Chloride (Normal Saline) 1,000 mls @ 75 mls/hr IV ONETIME ONE Stop: 08/26/21 08:14 Last Admin: 08/25/21 19:30 Dose: 75 mls/hr Documented by: Remdesivir 100 mg/ Sodium (Chloride) 100 mls @ 100 mls/hr IV Q24H SHAN Stop: 08/29/21 19:29 Last Admin: 08/26/21 17:39 Dose: 100 mls/hr Documented by: Sodium Chloride (Normal Saline) 100 mls @ 60 mls/hr IV ASDIRECTED SHAN Stop: 08/27/21 16:00 Last Admin: 08/27/21 12:32 Dose: 60 mls/hr Documented by: Influenza Virus Vaccine (Pharmacy To Dose - Influenza Vaccine) 1 each IM ONETIME ONE Stop: 08/26/21 18:21 Influenza Virus Vaccine (Flu Vacc Tp2138(65up)/Mf59c/Pf 60 Mcg/0.5 Ml Syringe) 60 mcg IM .ONCE ONE Stop: 08/26/21 18:31 Iopamidol (Iopamidol 755 Mg/Ml 100 Ml Bottle) 100 ml IVPUSH ONETIME ONE Stop: 08/27/21 12:04 Last Admin: 08/27/21 12:32 Dose: 100 ml Documented by: Polyethylene Glycol (Polyethylene Glycol 3350 Powder 17 Gm Packet) 17 gm PO ONETIME ONE Stop: 08/28/21 17:51 Last Admin: 08/28/21 18:52 Dose: 17 gm Documented by: Sodium Chloride (Sodium Chloride 0.9% 10 Ml Syringe) 10 ml FLUSH ONETIME ONE Stop: 08/27/21 12:04 Last Admin: 08/27/21 14:55 Dose: Not Given Documented by: - Exam Physical Findings Comments:: General: Alert, Oriented, Cooperative, No Acute Distress HEENT: Pupils Equal, Mucous Membr. Moist/[place] Neck: Supple, Trachea Midline Lungs: Clear to Auscultation, Normal Respiratory Effort Cardiovascular: No Murmurs, Irregular Rhythm GI/Abdominal Exam: Normal Bowel Sounds, Soft, Non-Tender, No Distention (Female) Exam: Deferred Back Exam: Normal Inspection Extremities: Normal Inspection, Normal Range of Motion, Non-Tender, No Pedal Edema, Normal Capillary Refill Peripheral Pulses: 2+: Radial (L), Radial (R) Skin: Warm, Dry, Intact Neurological: No New Focal Deficit Psy/Mental Status: Alert, Normal Affect, Normal Mood
== END 2021-09-02 15:49 | disposition home health service (06) | DRG 177 ==
LOC: JD.ED 16:08 → JD.MS 08-26 13:48
PROVIDERS: ADMIT Family Medicine; ATTEND Family Medicine
PROC: XW033E5 Introduction of Remdesivir Anti-infective into Peripheral Vein, Percutaneous Approach, New Technology Group 5 (ICD-10-PCS; 2021-08-25)
PROC: 3E0DX3Z Introduction of Anti-inflammatory into Mouth and Pharynx, External Approach (ICD-10-PCS; 2021-08-25)
PROC: 8E0ZXY6 Isolation (ICD-10-PCS; principal; 2021-08-26)
PROC: 3E0333Z Introduction of Anti-inflammatory into Peripheral Vein, Percutaneous Approach (ICD-10-PCS; 2021-08-26)
PROC: 3E02340 Introduction of Influenza Vaccine into Muscle, Percutaneous Approach (ICD-10-PCS; 2021-09-02)
DX: U07.1 COVID-19 (principal); J12.89 Other viral pneumonia; J12.82 Pneumonia due to coronavirus disease 2019; I10 Essential (primary) hypertension; N17.9 Acute kidney failure, unspecified; R09.02 Hypoxemia; I48.91 Unspecified atrial fibrillation; E04.1 Nontoxic single thyroid nodule; E20.9 Hypoparathyroidism, unspecified; E03.9 Hypothyroidism, unspecified; E66.9 Obesity, unspecified; N18.30 Chronic kidney disease, stage 3 unspecified; I12.9 Hypertensive chronic kidney disease with stage 1 through stage 4 chronic kidney disease, or unspecified chronic kidney disease; I08.3 Combined rheumatic disorders of mitral, aortic and tricuspid valves; Z88.5 Allergy status to narcotic agent; Z87.891 Personal history of nicotine dependence; Z85.3 Personal history of malignant neoplasm of breast; Z85.79 Personal history of other malignant neoplasms of lymphoid, hematopoietic and related tissues; Z68.31 Body mass index [BMI] 31.0-31.9, adult; Z90.10 Acquired absence of unspecified breast and nipple; Z79.890 Hormone replacement therapy; Z85.72 Personal history of non-Hodgkin lymphomas; Z23 Encounter for immunization; Z79.899 Other long term (current) drug therapy; Z88.6 Allergy status to analgesic agent
CPT/HCPCS: 36415 ×2; 71045; 80053; 83735; 85025; 86140; 87804 ×2; 96374; 99285; J1100; J7030; J7050; U0002; 71275; 71275-26; 84145; 84443; 84484; 85379; 90694; 93005; 93306; 94640; 94762; 97110-GP; 97161-GP; 97162-GP; 97530-GP; A9270-GY; G0008; J1650; J2405; J7620-GY; J8540; Q9967